=== PATIENT | female | born 1975 | race Caucasian/White ===

== ENCOUNTER 2017-03-25 11:11 | Emergency (ER) | payer MEDICAID, SELFPAY ==
[2017-03-25 11:16] VITALS: BP 147/56; PULSE 69; RESP 18; TEMP 36.6; O2SAT 99; BMI 25.8
--- NOTE | 2017-03-25 11:54 | ED.VISSUMM ---
- ER Visit Summary Date of Service: 03/25/17 Chief Complaint: Headache History of Present Illness: The patient is a 41 F with no primary care physician. She reports she has a headache began at 830 this morning. It is gradually gotten worse. She took ibuprofen without relief. She describes an aching pain on the right side of her head that is 10 at 10 worsening a 10 currently. Is worsened by light. She been nauseated and vomited twice. No blood in her emesis. She does complain of photophobia. No change in her vision. Patient reports that she has had similar headaches in the past and reports that I have had worst in this. Physical Examination: Vitals: Stable. Afebrile. Neck: Supple with no meningismus. Neuro: Cranial nerves II through XII are intact, 5 out of 5 strength throughout, normal sensation to light touch throughout. Normal gait. General: A&O x 3. NAD. Cardiovascular exam: Regular rate and rhythm, no murmur, rub or gallop. Respiratory exam: Clear to auscultation bilaterally. No wheezes or stridor. Abdominal exam: Soft, nontender, nondistended, normal bowel sounds. No peritoneal signs. Extremity: No clubbing, cyanosis, or edema. Emergency Department Course and Treatment: She had an IV placed. She is given a liter of normal saline. She is given Toradol and Benadryl IV. She refused nausea medications. She is feeling significantly improved. Treatment Plan: She will be discharged instructions to follow-up the [facility] in 1-2 days not improving. Return to the emergency department for any worsening symptoms. Disposition: To home in improved and stable condition. Impression: 1. Migraine headache. This note was generated with [employer] software. It may contain incorrect words, spelling, and punctuation that were not noted in review of the chart prior to signing ED Disposition - Plan for ED Patient: Disposition: Home or Assisted Living Chief Complaint: Headache Instructions: ED Headache Migraine Referrals: Concepcion Kumar [NON-STAFF] - 1-2 Days if not improving
--- NOTE | 2017-03-25 11:57 | ED.DCSUM_ITS ---
- ER Visit Summary Date of Service: 03/25/17 Chief Complaint: Headache History of Present Illness: The patient is a 41 F with no primary care physician. She reports she has a headache began at 830 this morning. It is gradually gotten worse. She took ibuprofen without relief. She describes an aching pain on the right side of her head that is 10 at 10 worsening a 10 currently. Is worsened by light. She been nauseated and vomited twice. No blood in her emesis. She does complain of photophobia. No change in her vision. Patient reports that she has had similar headaches in the past and reports that I have had worst in this. Physical Examination: Vitals: Stable. Afebrile. Neck: Supple with no meningismus. Neuro: Cranial nerves II through XII are intact, 5 out of 5 strength throughout , normal sensation to light touch throughout. Normal gait. General: A&O x 3. NAD. Cardiovascular exam: Regular rate and rhythm, no murmur, rub or gallop. Respiratory exam: Clear to auscultation bilaterally. No wheezes or stridor. Abdominal exam: Soft, nontender, nondistended, normal bowel sounds. No peritoneal signs. Extremity: No clubbing, cyanosis, or edema. Emergency Department Course and Treatment: She had an IV placed. She is given a liter of normal saline. She is given Toradol and Benadryl IV. She refused nausea medications. She is feeling significantly improved. Treatment Plan: She will be discharged instructions to follow-up the [facility] in 1-2 days not improving. Return to the emergency department for any worsening symptoms. Disposition: To home in improved and stable condition. Impression: 1. Migraine headache. This note was generated with [employer] software. It may contain incorrect words, spelling, and punctuation that were not noted in review of the chart prior to signing ED Disposition - Plan for ED Patient: Disposition: Home or Assisted Living Chief Complaint: Headache Instructions: ED Headache Migraine Referrals: Concepcion Kumar [NON-STAFF] - 1-2 Days if not improving
[2017-03-25] MEDS: Ketorolac 30 MG/ML Syringe IV (12:07)
[2017-03-25] MEDS: DiphenhydrAMINE 50 MG/ML Syringe IV (12:07)
[2017-03-25] MEDS: 0.9% Normal Saline 1,000 ML 999 ML IV (12:07)
[2017-03-25 13:35] VITALS: BP 124/75; PULSE 81; RESP 24; O2SAT 98
--- NOTE | 2017-03-25 13:36 | ED.RN ---
THIS NURSE REVIEWED D/C INSTRUCTIONS WITH PT. PT VERBALIZED UNDERSTANDING OF INSTRUCTIONS. IV D/C. IV CATHETER INTACT. PT TOLERATED WELL. PT DENIES FURTHER NEEDS OR QUESTIONS AT THIS TIME
== END 2017-03-25 13:37 | disposition home or self-care (01) ==
LOC: ED 12:56
PROVIDERS: Emergency Provider Emergency Medicine
DX: G43.909 Migraine, unspecified, not intractable, without status migrainosus (principal); Z87.891 Personal history of nicotine dependence
CPT/HCPCS: 96361; 96374; 96375; 99283; J7030; A4216

== ENCOUNTER 2017-03-26 02:25 | Emergency (ER) | payer MEDICAID, SELFPAY ==
[2017-03-26 02:27] VITALS: BP 113/56; PULSE 59; RESP 16; TEMP 36.8; O2SAT 100; BMI 25.8
[2017-03-26] MEDS: 0.9% Normal Saline 1,000 ML 1000 ML IV (02:58)
[2017-03-26] MEDS: Ketorolac 30 MG/ML Syringe IV (02:58)
[2017-03-26] MEDS: DiphenhydrAMINE 50 MG/ML Syringe 25 MG IV (03:01)
[2017-03-26 04:30] VITALS: RESP 12
--- NOTE | 2017-03-26 05:09 | ED.DCSUM_ITS ---
- ER Visit Summary Date of Service: 03/26/17 Chief Complaint: Headache History of Present Illness: The patient is a 41 F with a history of migraines. Patient complains of headache to the right church region. She has had nausea, vomiting, and photophobia. Patient was seen yesterday for the same. Patient states her headache was improved at discharge, but returned later in the day. She denies any recent URI symptoms. She denies any recent head trauma. Physical Examination: Vital signs are unremarkable. Patient is in no acute distress and is nontoxic appearing. Head and neck examination is normal. She has no meningismus. Heart is regular rate and rhythm. Palpable pulses are noted throughout. Lungs are clear with good air movement throughout. Abdomen is soft and nontender. Bowel sounds are noted. Extremity examination is unremarkable with full range of motion. Neurologic examination reveals no focal deficits. Test Results: Emergency Department Course and Treatment: Patient is treated Toradol, Benadryl , and IV fluids. On repeat evaluation she feels improved. She be discharged home at this time. Treatment Plan: [] Disposition: Discharge Impression: Migraine, improved This note was generated with [employer] dictation software. It may contain incorrect words, spelling, and punctuation that were not noted in review of the chart prior to signing ED Disposition - Plan for ED Patient: Disposition: Home or Assisted Living Chief Complaint: Headache Instructions: ED Headache Migraine Referrals: Eddy Wright MD [STAFF PHYSICIAN] - As Needed
[2017-03-26 05:19] VITALS: BP 98/63; PULSE 62; RESP 15; O2SAT 97
== END 2017-03-26 05:20 | disposition home or self-care (01) ==
PROVIDERS: Emergency Provider Emergency Medicine
DX: G43.909 Migraine, unspecified, not intractable, without status migrainosus (principal); Z87.891 Personal history of nicotine dependence
CPT/HCPCS: 96361; 96374; 96375; 99283; J7030; J7040; A4216

== ENCOUNTER 2017-05-15 19:23 | Emergency (ER) | payer MEDICAID, SELFPAY ==
[2017-05-15 19:24] VITALS: BP 123/75; PULSE 75; RESP 16; TEMP 37.1; O2SAT 99; BMI 26.6
--- NOTE | 2017-05-15 21:40 | RAD_ITS ---
STUDY: X-RAY CHEST REASON FOR EXAM: Female, 41 years old. Cough TECHNIQUE: Single AP portable view of the chest. COMPARISON: None. FINDINGS: The lungs are clear and expanded. There is no demonstrated pleural abnormality. Normal size heart. Normal mediastinum and ignacio. Normal visualized pulmonary arteries. Normal visualized aortic arch and descending thoracic aorta. Normal visualized thoracic spine. Normal visualized ribs, clavicles, and shoulders. There is no demonstrated abnormality of the visualized soft tissue structures of the upper abdomen. RAD/Chest 1 View (Portable) IMPRESSION: No acute cardiopulmonary disease. Electronically Signed: Jeromy Jones DO at 21:56 EDT , Service support ,
--- NOTE | 2017-05-15 22:32 | ED.DCSUM_ITS ---
- ER Visit Summary Date of Service: 05/15/17 Chief Complaint: Sinus congestion History of Present Illness: The patient is a 41 F resenting with sinus congestion ?1 day. She complains of congestion and runny nose. She has a sore throat. She has a dry cough. Denies fever. Denies chest pain or shortness of breath. She has been taking ijht-nwe-uveyhrq medications. She does not have a primary care physician. Denies other complaints. Physical Examination: Vitals are stable. Patient is afebrile. Alert no acute distress. HEENT exam is rhinorrhea, mild maxillary sinus tenderness, pharynx is normal, uvula midline. Neck is supple. No meningismus. Lungs are clear and equal bilaterally. Heart is regular rate and rhythm. Abdomen is soft nontender nondistended. Extremities are unremarkable. Skin is warm and dry. No rash Remainder of exam is unremarkable. Emergency Department Course and Treatment: Chest x-ray shows no acute process. Patient given Mucinex D. Advised to follow-up with Dr. Kam business administration program chair for no doc. Advised return to ED if worsening complaints. Disposition: Discharge home Impression: URI This note was generated with [employer] dictation software. It may contain incorrect words, spelling, and punctuation that were not noted in review of the chart prior to signing ED Disposition - Plan for ED Patient: Chief Complaint: Cold Sx Referrals: Care Physician,No Primary [Primary Care Provider] -
--- NOTE | 2017-05-15 22:34 | ED.DEP ---
ED Disposition - Plan for ED Patient: Chief Complaint: Cold Sx Prescriptions: Guaifenesin/Pseudoephedrne HCl [Mucinex D ER 1,200-120 mg Tab] 1 each PO BID PRN #14 tab.er.12h PRN Reason: Congestion Referrals: Care Physician,No Primary [Primary Care Provider] - Sandeep Kma MD [STAFF PHYSICIAN] -
--- NOTE | 2017-05-15 22:39 | ED.RN ---
PT REFUSED PRESCRIPTION FROM MD. AMBULATED OUT OF ROOM PRIOR TO DISCHARGE INSTRUCTIONS
== END 2017-05-15 22:40 | disposition home or self-care (01) ==
PROVIDERS: Emergency Provider Emergency Medicine
DX: J06.9 Acute upper respiratory infection, unspecified (principal); Z87.891 Personal history of nicotine dependence
CPT/HCPCS: 71045; 99282

== ENCOUNTER 2017-05-17 12:51 | Emergency (ER) | payer MEDICAID, SELFPAY ==
[2017-05-17 12:53] VITALS: BP 137/88; PULSE 87; RESP 16; TEMP 35.6; O2SAT 99; BMI 24.7
--- NOTE | 2017-05-17 13:44 | ED.DCSUM_ITS ---
- ER Visit Summary Date of Service: 05/17/17 Chief Complaint: Headache History of Present Illness: The patient is a 41 F with no primary care physician. She reports that she has a headache began today at 10. Similar to her prior headaches. Is a sharp pain right side of her head. Senna 10 at worst 910 currently. Is worsened by nothing including light. She is not taking anything for it. She denies any nausea or vomiting. No fever or chills. No recent trauma. No change in her vision. No numbness or weakness. Physical Examination: Vitals: Stable. Afebrile. Neck: Supple with no meningismus. Neuro: Cranial nerves II through XII are intact, 5 out of 5 strength throughout , normal sensation to light touch throughout. Normal gait. General: A&O x 3. NAD. Cardiovascular exam: Regular rate and rhythm, no murmur, rub or gallop. Respiratory exam: Clear to auscultation bilaterally. No wheezes or stridor. Abdominal exam: Soft, nontender, nondistended, normal bowel sounds. No peritoneal signs. Extremity: No clubbing, cyanosis, or edema. Emergency Department Course and Treatment: Had an IV placed. She was given a liter normal saline and Toradol. She reports that her headache is resolved. Treatment Plan: Patient will be discharged instructions follow-[facility] as needed. Disposition: To home in improved and stable condition. Impression: 1. Migraine headache. This note was generated with [employer] dictation software. It may contain incorrect words, spelling, and punctuation that were not noted in review of the chart prior to signing ED Disposition - Plan for ED Patient: Disposition: Home or Assisted Living Chief Complaint: Headache Instructions: ED Headache Migraine Referrals: Concepcion Kumar [NON-STAFF] - 1-2 Days if not improving
[2017-05-17] MEDS: Ketorolac 30 MG/ML Syringe IV (13:52)
[2017-05-17] MEDS: 0.9% Normal Saline 1,000 ML 999 ML IV (13:53)
[2017-05-17 14:50] VITALS: BP 117/84; PULSE 67; RESP 18; O2SAT 100
== END 2017-05-17 14:51 | disposition home or self-care (01) ==
PROVIDERS: Emergency Provider Emergency Medicine
DX: G43.909 Migraine, unspecified, not intractable, without status migrainosus (principal)
CPT/HCPCS: 96361; 96374; 99283; J7030; A4216

== ENCOUNTER 2017-05-18 12:06 | Emergency (ER) | payer MEDICAID, SELFPAY ==
[2017-05-18 12:08] VITALS: BP 105/73; PULSE 80; RESP 16; TEMP 36.7; O2SAT 96; BMI 25.8
--- NOTE | 2017-05-18 12:35 | ED.VISSUMM ---
- ER Visit Summary Date of Service: 05/18/17 Chief Complaint: Headache History of Present Illness: The patient is a 41 F with no primary care physician. She reports that she has a headache that began this morning at 11 AM when she woke. It is a sharp, tightness on the right side of her head. 10 out of 10 severity. Is worsened by nothing including light. She is not taking anything for pain. She denies any associated nausea, vomiting, photophobia, numbness, weakness, fever, or other complaints. Physical Examination: Vitals: Stable. Afebrile. Neck: Supple with no meningismus. Neuro: Cranial nerves II through XII are intact, 5 out of 5 strength throughout, normal sensation to light touch throughout. Normal gait. General: A&O x 3. NAD. Cardiovascular exam: Regular rate and rhythm, no murmur, rub or gallop. Respiratory exam: Clear to auscultation bilaterally. No wheezes or stridor. Abdominal exam: Soft, nontender, nondistended, normal bowel sounds. No peritoneal signs. Extremity: No clubbing, cyanosis, or edema. Emergency Department Course and Treatment: Patient was seen yesterday in the emergency department for the same complaint. She is given Toradol then and her headache resolved. She was given Toradol today and her headache resolved. Treatment Plan: The patient reports that Toradol is the only thing that works for her headaches. She will be discharged prescription for Toradol and start to follow-up the [facility] for further evaluation. Disposition: To home in improved and stable condition. Impression: 1. Migraine headache. This note was generated with [employer] dictation software. It may contain incorrect words, spelling, and punctuation that were not noted in review of the chart prior to signing ED Disposition - Plan for ED Patient: Chief Complaint: Headache Instructions: ED Headache Migraine Prescriptions: Ketorolac [Toradol] 10 mg PO Q6H PRN #20 tablet PRN Reason: Headache Referrals: Concepcion Kumar [NON-STAFF] - As soon as possible
--- NOTE | 2017-05-18 12:38 | ED.DCSUM_ITS ---
- ER Visit Summary Date of Service: 05/18/17 Chief Complaint: Headache History of Present Illness: The patient is a 41 F with no primary care physician. She reports that she has a headache that began this morning at 11 AM when she woke. It is a sharp, tightness on the right side of her head. 10 out of 10 severity. Is worsened by nothing including light. She is not taking anything for pain. She denies any associated nausea, vomiting, photophobia, numbness, weakness, fever, or other complaints. Physical Examination: Vitals: Stable. Afebrile. Neck: Supple with no meningismus. Neuro: Cranial nerves II through XII are intact, 5 out of 5 strength throughout , normal sensation to light touch throughout. Normal gait. General: A&O x 3. NAD. Cardiovascular exam: Regular rate and rhythm, no murmur, rub or gallop. Respiratory exam: Clear to auscultation bilaterally. No wheezes or stridor. Abdominal exam: Soft, nontender, nondistended, normal bowel sounds. No peritoneal signs. Extremity: No clubbing, cyanosis, or edema. Emergency Department Course and Treatment: Patient was seen yesterday in the emergency department for the same complaint. She is given Toradol then and her headache resolved. She was given Toradol today and her headache resolved. Treatment Plan: The patient reports that Toradol is the only thing that works for her headaches. She will be discharged prescription for Toradol and start to follow-up the [facility] for further evaluation. Disposition: To home in improved and stable condition. Impression: 1. Migraine headache. This note was generated with [employer] dictation software. It may contain incorrect words, spelling, and punctuation that were not noted in review of the chart prior to signing ED Disposition - Plan for ED Patient: Chief Complaint: Headache Instructions: ED Headache Migraine Prescriptions: Ketorolac [Toradol] 10 mg PO Q6H PRN #20 tablet PRN Reason: Headache Referrals: Concepcion Kumar [NON-STAFF] - As soon as possible
[2017-05-18] MEDS: Ketorolac 30 MG/ML Syringe IV (12:40)
[2017-05-18] MEDS: 0.9% Normal Saline 1,000 ML 999 ML IV (12:40)
[2017-05-18 13:59] VITALS: PULSE 84; RESP 16; O2SAT 98
== END 2017-05-18 14:01 | disposition home or self-care (01) ==
PROVIDERS: Emergency Provider Emergency Medicine
DX: G43.909 Migraine, unspecified, not intractable, without status migrainosus (principal)
CPT/HCPCS: 96361; 96374; 99283; J7030; A4216

== ENCOUNTER 2017-06-17 06:00 | Emergency (ER) | payer MEDICAID, SELFPAY ==
[2017-06-17 06:00] VITALS: BP 116/80; PULSE 81; RESP 16; TEMP 36.4; O2SAT 99; BMI 26.7
[2017-06-17] MEDS: Ketorolac 30 MG/ML Syringe IV (06:24)
[2017-06-17] MEDS: 0.9% Normal Saline 1,000 ML 1000 ML IV (06:24)
--- NOTE | 2017-06-17 07:20 | CT_ITS ---
STUDY: CT BRAIN WITHOUT CONTRAST REASON FOR EXAM: Female, 41 years old. Headaches. History of migraines. RADIATION DOSAGE (If Supplied By Facility): CTDIvol = ( 44.99 ) mGy, DLP = ( 745.49 ) mGycm TECHNIQUE: Transaxial CT imaging of the brain was performed without administration of intravenous contrast material. Individualized dose optimization techniques were used for this CT. COMPARISON: Comparison is made with prior study dated February 22, 2015. FINDINGS: Normal soft tissue structures. Normal calvarium. Normal size ventricles and extra-axial spaces for the patient's age. Normal white matter tracts of the cerebral hemispheres. Normal basal ganglia and thalami. Normal brainstem. Normal cerebellum. There is no intracranial hemorrhage. There are no findings of an acute ischemic infarction. Mucosal thickening of the sphenoid sinus. CT/Brain/Head without Contrast IMPRESSION: No acute abnormality is seen. Mucosal thickening of the sphenoid sinus. Electronically Signed: Rubén Lira MD at 8:02 EDT Tel [phone], Service support ,
--- NOTE | 2017-06-17 07:21 | ED.VISSUMM ---
- ER Visit Summary Date of Service: 06/17/17 Chief Complaint: [Headache] History of Present Illness: The patient is a 41 F [presents the emergency department with a headache that started about 24 hours ago. Patient states the headache is right-sided and describes it as throbbing. Patient states the headache came on gradually. Patient denies any head injury. Patient has had no photophobia and no nausea or vomiting. Last illness patient had was 2 weeks ago she had cold symptoms but those resolved. Patient states that she has had a history of migraines and typically Toradol resolves her headaches. Patient denies any carbon monoxide exposures. No family history of brain tumors or aneurysms. Patient rates her headache a 5 or 6 out of 10. Patient took Toradol at home yesterday did not resolve her headache. Patient also took ibuprofen today.] Physical Examination: [HEENT-PERRLA, EOMI. Cranial nerves II through XII grossly intact. TMs clear. Mucous membranes moist. No adenopathy. Cardiovascular-regular rate and rhythm without murmur or ectopy Lungs-clear to auscultation, chest wall stable without crepitus or subcu emphysema Abdomen-normoactive bowel sounds, soft, nontender, no rebound or rigidity, no peritoneal signs. Neuro kmsl-emylqt-spmk and heel smith testing within normal limits, negative Romberg, negative pronator drift, fundi benign Extremities-intact ?4, normal range of motion, normal pulses, atraumatic] Test Results: [CT scan of brain without contrast pending] Emergency Department Course and Treatment: [Patient received Toradol and a liter normal same fluid bolus which did not help her headache. Patient refused any sedating medications here and refused antinausea medications. Treatment Plan: [She will be given for [place] for home.] Care of patient turned over to morning physician awaiting CT result and disposition to home if normal. DISPOSITION-discharge to home in stable condition Impression: [Cephalgia] This note was generated with [employer] dictation software. It may contain incorrect words, spelling, and punctuation that were not noted in review of the chart prior to signing ED Disposition - Plan for ED Patient: Chief Complaint: Headache Referrals: Care Physician,No Primary [Primary Care Provider] -
--- NOTE | 2017-06-17 07:25 | ED.DCSUM_ITS ---
- ER Visit Summary Date of Service: 06/17/17 Chief Complaint: [Headache] History of Present Illness: The patient is a 41 F [presents the emergency department with a headache that started about 24 hours ago. Patient states the headache is right-sided and describes it as throbbing. Patient states the headache came on gradually. Patient denies any head injury. Patient has had no photophobia and no nausea or vomiting. Last illness patient had was 2 weeks ago she had cold symptoms but those resolved. Patient states that she has had a history of migraines and typically Toradol resolves her headaches. Patient denies any carbon monoxide exposures. No family history of brain tumors or aneurysms. Patient rates her headache a 5 or 6 out of 10. Patient took Toradol at home yesterday did not resolve her headache. Patient also took ibuprofen today.] Physical Examination: [HEENT-PERRLA, EOMI. Cranial nerves II through XII grossly intact. TMs clear. Mucous membranes moist. No adenopathy. Cardiovascular-regular rate and rhythm without murmur or ectopy Lungs-clear to auscultation, chest wall stable without crepitus or subcu emphysema Abdomen-normoactive bowel sounds, soft, nontender, no rebound or rigidity, no peritoneal signs. Neuro txbv-syehjv-harv and heel smith testing within normal limits, negative Romberg, negative pronator drift, fundi benign Extremities-intact ?4, normal range of motion, normal pulses, atraumatic] Test Results: [CT scan of brain without contrast pending] Emergency Department Course and Treatment: [Patient received Toradol and a liter normal same fluid bolus which did not help her headache. Patient refused any sedating medications here and refused antinausea medications. Treatment Plan: [She will be given for [place] for home.] Care of patient turned over to morning physician awaiting CT result and disposition to home if normal. DISPOSITION-discharge to home in stable condition Impression: [Cephalgia] This note was generated with [employer] dictation software. It may contain incorrect words, spelling, and punctuation that were not noted in review of the chart prior to signing ED Disposition - Plan for ED Patient: Chief Complaint: Headache Referrals: Care Physician,No Primary [Primary Care Provider] -
--- NOTE | 2017-06-17 07:25 | ED.DEP ---
ED Disposition - Plan for ED Patient: Chief Complaint: Headache Instructions: ED Cephalgia Unspecified Referrals: Care Physician,No Primary [Primary Care Provider] - Philip Batres MD [STAFF PHYSICIAN] - 3-5 Days
--- NOTE | 2017-06-17 08:13 | ED.DCSUM_ITS ---
- ER Visit Summary Date of Service: 06/17/17 Chief Complaint: [] History of Present Illness: The patient is a 41 F [] Physical Examination: [] Test Results: [] Emergency Department Course and Treatment: [] Treatment Plan: [] Disposition: [] Impression: [] This note was generated with [employer] dictation software. It may contain incorrect words, spelling, and punctuation that were not noted in review of the chart prior to signing ED Disposition - Plan for ED Patient: Chief Complaint: Headache Instructions: ED Cephalgia Unspecified Prescriptions: DiphenhydrAMINE [Benadryl] 25 mg PO UD #10 cap Referrals: Philip Batres MD [STAFF PHYSICIAN] - 3-5 Days Care Physician,No Primary [Primary Care Provider] -
[2017-06-17 08:27] VITALS: BP 118/79; PULSE 84; RESP 22; O2SAT 98
--- NOTE | 2017-06-17 08:28 | ED.RN ---
THIS NURSE REVIEWED D/C INSTRUCTIONS WITH PT. PT VERBALIZED UNDERSTANDING OF INSTRUCTIONS. IV D/C. IV CATHETER INTACT. PT TOLERATED WELL. PT REQUESTING SOMETHING FOR PAIN. DR SARAVIA ALREADY SPOKE WITH THE PT ABOUT HER MEDICATION OPTIONS. PT GIVEN PRESCRIPTION FOR BENADRYL. PT DENIES FURTHER NEEDS OR QUESTIONS AT THIS TIME
== END 2017-06-17 08:29 | disposition home or self-care (01) ==
PROVIDERS: Emergency Provider Emergency Medicine
DX: G43.909 Migraine, unspecified, not intractable, without status migrainosus (principal); Z87.891 Personal history of nicotine dependence
CPT/HCPCS: 70450; 96361; 96374; 99284; J7030; A4216

== ENCOUNTER 2017-06-17 14:41 | Emergency (ER) | payer MEDICAID, SELFPAY ==
[2017-06-17 14:41] VITALS: BP 119/70; PULSE 85; RESP 18; TEMP 36.8; O2SAT 96; BMI 27.1
--- NOTE | 2017-06-17 16:07 | ED.RN ---
PT WAS IN RESTROOM. I ENTERED TO START HER IV AND MEDICATE HER. I ELEVATED THE HEAD OF THE BED TO START IV. PT ENTERED ROOM AND DEMANDED THE HEAD OF THE BED BE PUT DOWN. I INFORMED HER THAT I WOULD NEED IT UP TO START HER IV. SHE STATED PUT IS DOWN OR NO IV. PT WAS TOLD THAT I WAS JUST THERE TO HELP HER AND DIDN'T UNDERSTAND THE HOSTILITY. SHE THEN SAID I'M LEAVING. FRIEND APOLOGIZED AND MEDICATIONS WHERE NOT GIVEN. DR LÓPEZ AND LEAD ASSISTANT MANAGER WHERE INFORMED.
--- NOTE | 2017-06-17 16:15 | CASEMGMT ---
Social Work Note In to speak with pt as she had been referred to SW for multiple visits. Pt has been to the ED for headaches a total of 11 visits since 02/18/17. Pt does not have a PCP. Introduced self and role at [facility]. Pt states, I don't need a manager social media. Inform pt that SW is here to support and assist her. Inquire if pt has a PCP and she states, I am not talking to you. You can ask whatever you want, I am not responding. Pt pulls blanket over her head. SW inquires about living situation, income, PCP, transportation, and mental health. Pt does not respond and continues to disregard inquiries. Inform pt that SW is leaving resources on her chair with the coat on it. Pt does not acknowledge. Inquire if SW may setup an appointment with a PCP that accepts her insurance. Pt continues to remain silent. Pt made aware that SW is available if needs arise. Reviewed with supervisor [employer] who confirms without pt's consent cannot setup a PCP appointment on her behalf. Will review case to present for approval of EDCP. Mounika Young, HORTICULTURE SUPERVISOR, HOTEL RESERVATIONIST
--- NOTE | 2017-06-17 16:19 | ED.DCSUM_ITS ---
- ER Visit Summary Date of Service: 06/17/17 Chief Complaint: Headache History of Present Illness: The patient is a 41 F who states that she has a history of migraines. She states that she believes yesterday may be the night before she developed a right-sided headache. She describes it as retro-orbital and sharp and stabbing. He states that this is a typical headache for her. She was seen in the emergency department this morning given Toradol which she states did not help and she went home and went to bed and her headache got worse. She states that she typically takes Toradol for headaches and that helps. No fevers. She notes some nausea. Some mild light sensitivity. She denies any neurologic deficits or weakness. She denies any visual changes. No watering of the eye. No rashes. Physical Examination: Afebrile vital signs are stable Gen: Well-nourished well-developed Head: Normocephalic atraumatic no temporal artery tenderness Eyes: Perrl EOMI no conjunctival injection ENT: TMs clear no rhinorrhea moist mucous membranes Neck: Supple no lymphadenopathy no JVD nontender CVS: Regular rate rhythm no murmurs normal S1-S2 Respiratory: No distress clear to auscultation bilaterally chest nontender Abdomen: Soft nontender nondistended normal bowel sounds no masses Back: Nontender Extremity: Nontender no edema Skin: Normal color no rash Neuro: alert orientated ?3 CN II-XII intact normal strength sensation reflexes gait cerebellar Psych: Normal affect normal mood Emergency Department Course and Treatment: The patient's last 3 prior ED visits were reviewed. Patient had medications ordered. When nursing went to start the IV she refused the IV and left the emergency department. Impression: 1. Headache 2. ED elopement This note was generated with [employer] dictation software. It may contain incorrect words, spelling, and punctuation that were not noted in review of the chart prior to signing ED Disposition - Plan for ED Patient: Chief Complaint: Headache Referrals: Care Physician,No Primary [Primary Care Provider] -
== END 2017-06-17 17:01 | disposition home or self-care (01) ==
LOC: ED 16:32
PROVIDERS: Emergency Provider Emergency Medicine
DX: G43.909 Migraine, unspecified, not intractable, without status migrainosus (principal); Z87.891 Personal history of nicotine dependence
CPT/HCPCS: 70450; 96361; 96374; 99282; 99284; J7030; A4216; J2930

== ENCOUNTER 2017-06-18 03:59 | Emergency (ER) | payer MEDICAID, SELFPAY ==
[2017-06-18 04:01] VITALS: BP 127/66; PULSE 73; RESP 14; TEMP 36.6; O2SAT 100; BMI 25.1
--- NOTE | 2017-06-18 04:47 | ED.DCSUM_ITS ---
- ER Visit Summary Date of Service: 06/18/17 Chief Complaint: [] Migraine headache History of Present Illness: The patient is a 41 F complaining of a migraine headache for the last 2 days gradual onset continuous similar headaches in the past. Throbbing right-sided. Negative CT head recently. Associated nausea and photophobia. No home treatment since her last visit here yesterday when she received Toradol. She has had multiple visits for migraines this year. Physical Examination: Vital signs reviewed General: Well-nourished well-developed Head: Normocephalic atraumatic Eyes: Pupils equal round and reactive to light extraocular movements intact ENT: TMs clear no hemotympanum no trauma Neck: Nontender full range of motion Cardiovascular: Regular rate rhythm no murmurs normal S1-S2 Respiratory: No distress clear to auscultation bilaterally chest nontender Abdomen: Soft nontender nondistended normal bowel sounds no masses Back: Nontender no CVA tenderness Extremities: Nontender active range of motion ?4 extremities no trauma Skin: Normal color no trauma Neuro alert oriented cranial nerves II through XII intact normal strength sensation reflexes Test Results: [] Emergency Department Course and Treatment: [] Patient given IV fluids Toradol and Benadryl at her request. As Phenergan or Compazine. Treatment Plan: [] Disposition: [] Impression: [] Migraine headache This note was generated with [employer] dictation software. It may contain incorrect words, spelling, and punctuation that were not noted in review of the chart prior to signing ED Disposition - Plan for ED Patient: Chief Complaint: Headache Referrals: Care Physician,No Primary [Primary Care Provider] -
--- NOTE | 2017-06-18 04:47 | ED.DEP ---
ED Disposition - Plan for ED Patient: Disposition: Home or Assisted Living Chief Complaint: Headache Instructions: ED Headache Migraine Referrals: Care Physician,No Primary [Primary Care Provider] - Contreras Allan DO [NON CLINICAL AFFILIATE] -
[2017-06-18] MEDS: 0.9% Normal Saline 1,000 ML 999 ML IV (04:55)
[2017-06-18] MEDS: DiphenhydrAMINE 50 MG/ML Syringe IV (04:56)
[2017-06-18] MEDS: Ketorolac 30 MG/ML Syringe IV (04:56)
[2017-06-18 05:56] VITALS: BP 107/71; PULSE 75; RESP 16; O2SAT 100
== END 2017-06-18 05:57 | disposition home or self-care (01) ==
PROVIDERS: Emergency Provider Emergency Medicine
DX: G43.909 Migraine, unspecified, not intractable, without status migrainosus (principal)
CPT/HCPCS: 96361; 96374; 96375; 99284; J7030; A4216

== ENCOUNTER 2017-06-21 06:51 | Emergency (ER) | payer MEDICAID, SELFPAY ==
[2017-06-21 06:53] VITALS: BP 130/88; PULSE 79; RESP 18; TEMP 36.6; O2SAT 100; BMI 56.9
--- NOTE | 2017-06-21 07:22 | ED.VISSUMM ---
- ER Visit Summary Date of Service: 06/21/17 Chief Complaint: Headache History of Present Illness: The patient is a 41 F presenting with headache. She states this feels like her previous tension headaches. Pain is on the left side of her head and started gradually yesterday. She has been taking awmh-gcf-bllsfiu headache medication with some relief. She denies recent fever. Denies vomiting but complains of nausea. No numbness or weakness. No other complaints. No recent trauma Physical Examination: Vitals are stable. Patient is afebrile. Alert no acute distress. HEENT exam is unremarkable. Neck is supple. No meningismus Lungs are clear and equal bilaterally. Heart is regular rate and rhythm. Abdomen is soft nontender nondistended. Extremities are unremarkable. Skin is warm and dry. No focal neurologic deficit. Remainder of exam is unremarkable. Emergency Department Course and Treatment: Patient given Compazine, Benadryl IV. She continues to have pain and was given Toradol. She has improvement after Toradol. She is resting comfortably. Advised to follow-up with Dr. Batres automobile service station attendant for no doc. Advised return to ED for worsening complaints. Disposition: Discharged home Impression: Headache This note was generated with [employer]oo dictation software. It may contain incorrect words, spelling, and punctuation that were not noted in review of the chart prior to signing ED Disposition - Plan for ED Patient: Chief Complaint: Headache Referrals: Care Physician,No Primary [Primary Care Provider] -
[2017-06-21] MEDS: DiphenhydrAMINE 50 MG/ML Syringe 25 MG IV (07:57)
[2017-06-21 08:42] VITALS: BP 106/73; PULSE 62; O2SAT 100
[2017-06-21] MEDS: Ketorolac 30 MG/ML Syringe IV (08:45)
--- NOTE | 2017-06-21 09:48 | ED.DEP ---
ED Disposition - Plan for ED Patient: Chief Complaint: Headache Instructions: ED Headache Tension Referrals: Care Physician,No Primary [Primary Care Provider] - Philip Batres MD [STAFF PHYSICIAN] -
[2017-06-21 10:00] VITALS: BP 124/79; PULSE 86; RESP 18; O2SAT 98
--- NOTE | 2017-06-21 10:01 | ED.RN ---
THIS NURSE REVIEWED D/C INSTRUCTIONS WITH PT AND VISITOR. BOTH VERBALIZED UNDERSTANDING OF INSTRUCTIONS. IV D/C. IV CATHETER INTACT. PT TOLERATED WELL. PT DENIES FURTHER NEEDS OR QUESTIONS AT THIS TIME.
--- NOTE | 2017-06-29 09:48 | CASEMGMT ---
Social Work Note Attempted to call pt to identify needs to ensure linkage with appropriate resources for continuity of care. Introduced self and role at [facility] and pt hung up. Care Plan to be developed and mailed out to pt upon review with referring physician. Mounika Young, RN CLINICAL DOCUMENTATION SPECIALIST, RADIOLOGY RECEPTIONIST
== END 2017-06-21 10:01 | disposition home or self-care (01) ==
PROVIDERS: Emergency Provider Emergency Medicine
DX: R51 Headache (principal); Z87.891 Personal history of nicotine dependence
CPT/HCPCS: 96374; 96375; 99283; A4216

== ENCOUNTER 2017-07-09 12:58 | Emergency (ER) | payer MEDICAID, SELFPAY ==
[2017-07-09 12:58] VITALS: BP 133/64; PULSE 81; RESP 14; TEMP 36.7; O2SAT 98; BMI 23.6
--- NOTE | 2017-07-09 13:44 | ED.VISSUMM ---
- ER Visit Summary Date of Service: 07/09/17 Chief Complaint: Headache History of Present Illness: The patient is a 42 F presenting with headache. This started yesterday. It was gradual in onset. Similar to previous migraines. Patient has light sensitivity. She has had nausea with no vomiting. She denies fever. Denies trauma. Denies other complaints. She states she tried Toradol at home with minimal relief. Physical Examination: Vitals are stable. Patient is afebrile. Alert no acute distress. HEENT exam is unremarkable. Neck is supple. No meningismus Lungs are clear and equal bilaterally. Heart is regular rate and rhythm. Abdomen is soft nontender nondistended. Extremities are unremarkable. Skin is warm and dry. No focal neurologic deficit. Remainder of exam is unremarkable. Emergency Department Course and Treatment: Compazine, Benadryl, Toradol were ordered. Patient declines Compazine. On reevaluation she is resting comfortably. She is advised to follow-up with her primary care physician. Advised return to ED for worsening complaints. Disposition: Discharge home Impression: Headache This note was generated with [employer] dictation software. It may contain incorrect words, spelling, and punctuation that were not noted in review of the chart prior to signing ED Disposition - Plan for ED Patient: Chief Complaint: Headache Referrals: Care Physician,No Primary [Primary Care Provider] -
--- NOTE | 2017-07-09 13:47 | ED.DCSUM_ITS ---
- ER Visit Summary Date of Service: 07/09/17 Chief Complaint: Headache History of Present Illness: The patient is a 42 F presenting with headache. This started yesterday. It was gradual in onset. Similar to previous migraines. Patient has light sensitivity. She has had nausea with no vomiting. She denies fever. Denies trauma. Denies other complaints. She states she tried Toradol at home with minimal relief. Physical Examination: Vitals are stable. Patient is afebrile. Alert no acute distress. HEENT exam is unremarkable. Neck is supple. No meningismus Lungs are clear and equal bilaterally. Heart is regular rate and rhythm. Abdomen is soft nontender nondistended. Extremities are unremarkable. Skin is warm and dry. No focal neurologic deficit. Remainder of exam is unremarkable. Emergency Department Course and Treatment: Compazine, Benadryl, Toradol were ordered. Patient declines Compazine. On reevaluation she is resting comfortably. She is advised to follow-up with her primary care physician. Advised return to ED for worsening complaints. Disposition: Discharge home Impression: Headache This note was generated with [employer] dictation software. It may contain incorrect words, spelling, and punctuation that were not noted in review of the chart prior to signing ED Disposition - Plan for ED Patient: Chief Complaint: Headache Referrals: Care Physician,No Primary [Primary Care Provider] -
[2017-07-09] MEDS: DiphenhydrAMINE 50 MG/ML Syringe 25 MG IV (14:13)
[2017-07-09] MEDS: Ketorolac 30 MG/ML Syringe IV (14:14)
--- NOTE | 2017-07-09 14:51 | ED.DEP ---
ED Disposition - Plan for ED Patient: Chief Complaint: Headache Instructions: ED Headache Migraine Referrals: Care Physician,No Primary [Primary Care Provider] - Taylor Menon DO [STAFF PHYSICIAN] -
[2017-07-09 15:43] VITALS: BP 112/77; PULSE 68; RESP 16
== END 2017-07-09 15:44 | disposition home or self-care (01) ==
PROVIDERS: Emergency Provider Emergency Medicine
DX: R51 Headache (principal); Z87.891 Personal history of nicotine dependence
CPT/HCPCS: 96374; 96375; 99283

== ENCOUNTER 2017-07-10 05:57 | Emergency (ER) | payer MEDICAID, SELFPAY ==
[2017-07-10 05:58] VITALS: BP 118/67; PULSE 70; RESP 16; TEMP 36.5; O2SAT 99; BMI 25.9
--- NOTE | 2017-07-10 06:25 | ED.VISSUMM ---
- ER Visit Summary Date of Service: 07/10/17 Chief Complaint: Right-sided headache History of Present Illness: The patient is a [address] migraine headaches. States at 330 this morning woke up with right-sided headache. Call for migraines. She denies any fever. Denies any trauma. Denies any sinus congestion. She is on no blood thinners. Denies any neurological symptoms. No trouble walking or with her vision or speech. She has nausea no vomiting. She has had multiple headaches like this before. She has had a recent CAT scan one several years ago both of which were negative. She has no family history of intracranial bleeds and currently is on no blood thinners. Physical Examination: Middle-aged female complaining of a headache otherwise no acute distress. Vital signs are stable afebrile. HEENT exam unremarkable. Pupils round reactive light. Extra motions are intact. No facial droop. No sinus tenderness. No signs of trauma to her face or scalp. Neck nontender no lymphadenopathy no meningismus. Able to touch chin to chest. Lungs clear to auscultation bilaterally. Heart regular rate and rhythm no murmur. Abdomen soft nontender. Normal bowel sounds no peritoneal signs. She is moving all 4 extremities. Neurovascular intact. 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 Dorsi plantar flexion intact. No ataxia. Neurologically she is awake and alert with no focal motor or sensory deficits. NIH is 0. Back exam normal. Test Results: None Emergency Department Course and Treatment: Patient treated with 1 L normal saline, IV Toradol, IV Benadryl and IV Phenergan. Treatment Plan: Repeat exam patient is doing much better will be discharged home. Disposition: Discharge Impression: Acute cephalgia with a history of migraines This note was generated with [employer] dictation software. It may contain incorrect words, spelling, and punctuation that were not noted in review of the chart prior to signing ED Disposition - Plan for ED Patient: Chief Complaint: Headache Referrals: Care Physician,No Primary [Primary Care Provider] -
--- NOTE | 2017-07-10 06:27 | ED.DEP ---
ED Disposition - Plan for ED Patient: Disposition: Home or Assisted Living Chief Complaint: Headache Instructions: ED Headache Migraine Referrals: Rodney Spicer MD [STAFF PHYSICIAN] - As Needed Additional Instructions: Any of fluids and rest. Toradol as needed. Return if feeling worse.
[2017-07-10] MEDS: DiphenhydrAMINE 50 MG/ML Syringe 25 MG IV (06:34)
[2017-07-10] MEDS: 0.9% Normal Saline 1,000 ML 1000 ML IV (06:34)
[2017-07-10] MEDS: Ketorolac 30 MG/ML Syringe IV (06:34)
--- NOTE | 2017-07-10 06:47 | ED.RN ---
pt refuses celinen.
[2017-07-10 07:22] VITALS: BP 141/81; PULSE 87; RESP 14; O2SAT 100
== END 2017-07-10 07:23 | disposition home or self-care (01) ==
PROVIDERS: Emergency Provider Emergency Medicine
DX: G43.909 Migraine, unspecified, not intractable, without status migrainosus (principal); Z87.891 Personal history of nicotine dependence
CPT/HCPCS: 96361; 96374; 96375; 99283; J7030; A4216

== ENCOUNTER 2017-07-27 01:07 | Emergency (ER) | payer MEDICAID, SELFPAY ==
[2017-07-27 01:08] VITALS: BP 114/76; PULSE 69; RESP 16; TEMP 36.8; O2SAT 98; BMI 26.7
--- NOTE | 2017-07-27 02:18 | ED.VISSUMM ---
- ER Visit Summary Date of Service: 07/27/17 Chief Complaint: Headache History of Present Illness: The patient is a 42 F who presents with a headache. She has a history of multiple prior ER visits for headache. She states that this is similar to prior headaches but actually less severe than usual. She reports nausea. She denies any vomiting. She denies any head injury. No recent illness. No fevers vomiting or diarrhea. Physical Examination: Afebrile vitals are unremarkable Moist mucous membranes Extraocular motion intact Heart is regular rate per vitals She is in no respiratory distress The patient is alert she answers all questions appropriately she is moving all 4 extremities and does not appear to have any focal or lateralizing neurological deficits patient refused physical exam and physical exam is from observation Test Results: Not indicated Emergency Department Course and Treatment: I attempted to explain to the patient why physical exam is still important. My clinical suspicion for serious life-threatening pathology is low given that she has a history of prior similar headaches and multiple prior presentations for similar headaches. Patient is refusing to speak to me any further answer any questions or allow physical exam. Patient does not appear to have any life or limb threatening pathology. She was discharged. Treatment Plan: [] Disposition: Discharge Impression: Headache, recurrent This note was generated with [employer] dictation software. It may contain incorrect words, spelling, and punctuation that were not noted in review of the chart prior to signing ED Disposition - Plan for ED Patient: Chief Complaint: Headache Referrals: Care Physician,No Primary [Primary Care Provider] -
--- NOTE | 2017-07-27 02:21 | ED.DEP ---
ED Disposition - Plan for ED Patient: Chief Complaint: Headache Instructions: ED Cephalgia Unspecified Referrals: Care Physician,No Primary [Primary Care Provider] -
--- NOTE | 2017-07-27 02:38 | ED.RN ---
UPON ATTEMPT TO DISCHARGE PATIENT, PATIENT WAS NOT IN ROOM.
== END 2017-07-27 02:39 | disposition home or self-care (01) ==
PROVIDERS: Emergency Provider Emergency Medicine
DX: R51 Headache (principal)
CPT/HCPCS: 99282

== ENCOUNTER 2017-07-27 13:24 | Emergency (ER) | payer MEDICAID, SELFPAY ==
[2017-07-27 13:25] VITALS: BP 115/76; PULSE 66; RESP 14; TEMP 36.6; O2SAT 99; BMI 25.1
[2017-07-27] MEDS: Ketorolac 30 MG/ML Syringe IV (13:59)
[2017-07-27] MEDS: 0.9% Normal Saline 1,000 ML 1000 ML IV (13:59)
[2017-07-27] MEDS: DiphenhydrAMINE 50 MG/ML Syringe 25 MG IV (13:59)
--- NOTE | 2017-07-27 15:14 | ED.VISSUMM ---
- ER Visit Summary Date of Service: 07/27/17 Chief Complaint: [Headache] History of Present Illness: The patient is a 42 F [presents the emergency department with a headache that started yesterday. Patient rates her headache a 9 out of 10. Patient describes a headache is right-sided and similar to the prior headaches she has had. Patient describes some mild photophobia and some nausea but no vomiting. Patient states that she has had headaches off and on since 2007. Patient denies any recent falls or head injuries. Patient denies recent illness. Patient states Toradol usually works for her.] Physical Examination: [HEENT-PERRLA, EOMI. Cranial nerves II through XII grossly intact. TMs clear. Mucous membranes moist. No adenopathy. Cardiovascular-regular rate and rhythm without murmur or ectopy Lungs-clear to auscultation, chest wall stable without crepitus or subcu emphysema Abdomen-normoactive bowel sounds, soft, nontender, no rebound or rigidity, no peritoneal signs. Neuro brsv-irivri-hzee and heel smith testing within normal limits, negative Romberg, negative pronator drift, fundi benign Extremities-intact ?4, normal range of motion, normal pulses, atraumatic] Test Results: None indicated Emergency Department Course and Treatment: [Patient had an IV line established and was given a liter normal same fluid bolus as well as Reglan, Benadryl, and Toradol. Headache improved with 5 out of 10 and continuing to improve.] Treatment Plan: [Patient will be discharged home with referral to neurology for follow-up]. Patient had CT scan imaging of her brain and May 2017 therefore I do not feel any imaging is indicated in this headache is typical of prior headaches. Disposition: [Discharged to home in stable condition.] Impression: [Migrainous cephalgia] This note was generated with [employer] dictation software. It may contain incorrect words, spelling, and punctuation that were not noted in review of the chart prior to signing ED Disposition - Plan for ED Patient: Chief Complaint: Headache Referrals: Care Physician,No Primary [Primary Care Provider] -
--- NOTE | 2017-07-27 15:21 | ED.DCSUM_ITS ---
- ER Visit Summary Date of Service: 07/27/17 Chief Complaint: [Headache] History of Present Illness: The patient is a 42 F [presents the emergency department with a headache that started yesterday. Patient rates her headache a 9 out of 10. Patient describes a headache is right-sided and similar to the prior headaches she has had. Patient describes some mild photophobia and some nausea but no vomiting. Patient states that she has had headaches off and on since 2007. Patient denies any recent falls or head injuries. Patient denies recent illness. Patient states Toradol usually works for her.] Physical Examination: [HEENT-PERRLA, EOMI. Cranial nerves II through XII grossly intact. TMs clear. Mucous membranes moist. No adenopathy. Cardiovascular-regular rate and rhythm without murmur or ectopy Lungs-clear to auscultation, chest wall stable without crepitus or subcu emphysema Abdomen-normoactive bowel sounds, soft, nontender, no rebound or rigidity, no peritoneal signs. Neuro oeba-rcnldg-yxii and heel smith testing within normal limits, negative Romberg, negative pronator drift, fundi benign Extremities-intact ?4, normal range of motion, normal pulses, atraumatic] Test Results: None indicated Emergency Department Course and Treatment: [Patient had an IV line established and was given a liter normal same fluid bolus as well as Reglan, Benadryl, and Toradol. Headache improved with 5 out of 10 and continuing to improve.] Treatment Plan: [Patient will be discharged home with referral to neurology for follow-up]. Patient had CT scan imaging of her brain and May 2017 therefore I do not feel any imaging is indicated in this headache is typical of prior headaches. Disposition: [Discharged to home in stable condition.] Impression: [Migrainous cephalgia] This note was generated with [employer] dictation software. It may contain incorrect words, spelling, and punctuation that were not noted in review of the chart prior to signing ED Disposition - Plan for ED Patient: Chief Complaint: Headache Referrals: Care Physician,No Primary [Primary Care Provider] -
--- NOTE | 2017-07-27 15:21 | ED.DEP ---
ED Disposition - Plan for ED Patient: Chief Complaint: Headache Instructions: ED Headache Migraine Referrals: Care Physician,No Primary [Primary Care Provider] - Jesus Barrientos MD [STAFF PHYSICIAN] - 5-7 Days
[2017-07-27 15:29] VITALS: RESP 18
== END 2017-07-27 15:31 | disposition home or self-care (01) ==
PROVIDERS: Emergency Provider Emergency Medicine
DX: G43.909 Migraine, unspecified, not intractable, without status migrainosus (principal); Z87.891 Personal history of nicotine dependence
CPT/HCPCS: 96361; 96374; 96375; 99282; 99283; J7030; A4216

== ENCOUNTER 2017-07-28 05:08 | Emergency (ER) | payer MEDICAID, SELFPAY ==
[2017-07-28 05:09] VITALS: BP 118/67; PULSE 80; RESP 19; TEMP 36.7; O2SAT 98; BMI 25.6
--- NOTE | 2017-07-28 05:19 | ED.VISSUMM ---
- ER Visit Summary Date of Service: 07/28/17 Chief Complaint: [Headache] History of Present Illness: The patient is a 42 F [who presents the emergency department headache. It started 2 days ago. In the right side of her head and right cheondoism. No vision changes. She describes nausea and vomiting. She was seen here twice yesterday. She did receive prescription Toradol and that helps with the headache but then she started vomiting this evening. No fevers or chills. This is similar to previous headaches she has had in the past. No balance disturbances numbness tingling or weakness. She has a history of smoking. She has had multiple CAT scans in the past. She has never followed up does not have a primary care doctor or neurologist.] Physical Examination: [] WN WD NAD No tenderness over the right cheondoism PERRL EOMI MMM NECK supple and nontender, no masses RRR no murmur rub or gallop, no peripheral edema, symmetric radial pulses CTAB no respiratory distress ABDOMEN is soft and nontender, normal bowel sounds, no distension, no rebound or guarding SKIN is warm and dry no rashes Alert and Oriented x3, CN II-XII in tact, no motor or sensory deficits, gait normal No lymphadenopathy Test Results: [] Emergency Department Course and Treatment: [Patient was given benadryl decadron and reglan. She was ordered fluids. labs were ordered. after receiving medications patient eloped from the emergency department without notifying staff. ] Treatment Plan: [] Disposition: [eloped] Impression: [recurrent headache] This note was generated with [employer] dictation software. It may contain incorrect words, spelling, and punctuation that were not noted in review of the chart prior to signing ED Disposition - Plan for ED Patient: Chief Complaint: Headache Referrals: Care Physician,No Primary [Primary Care Provider] -
[2017-07-28] MEDS: 0.9% Normal Saline 1,000 ML 999 ML IV (05:28)
[2017-07-28] MEDS: DiphenhydrAMINE 50 MG/ML Syringe 25 MG IV (05:29)
[2017-07-28] MEDS: Metoclopramide 10 MG/2 ML Vial IV (05:29)
[2017-07-28 05:34] LABS: Absolute Lymphocyte Count 1.13 X10^3/ul (0.83-4.51); Absolute Neutrophil Count 3.5 X10^3/uL (2.0-7.7); Basophil# 0.01 X10^3/uL; Basophil% 0.2 % (0-1); Eosinophil# 0.09 X10^3/uL; Eosinophils% 1.7 % (0-5); Hematocrit 38.1 % (37-47); Hemoglobin 12.5 g/dl (12.0-15.0); Lymphocyte # 1.13 X10^3/ul (4.0); Lymphocyte % 21.9 % (19-41); Mean Corp Hgb Conc 32.8 g/gl (32-36); Mean Corpuscular Hgb 32.2 pg (27.0-32.0); Mean Corpuscular Volume 98.2 fL (81-99); Mean Platelet Vol. 10.2 fl (6.2-12.0); Monocyte# 0.39 X10^3/uL; Monocyte% 7.6 % (0-10); Neutrophil # 3.53 X10^3/uL (2.7-7.7); Neutrophil % 68.6 % (47-70); Platelet Count 217 K/mm3 (150-450); RBC Distribution Width CV 12.5 % (11.6-14.6); RBC Distribution Width SD 44.3 fl (35.1-43.9); Red Blood Count 3.88 M/mm3 (4.2-5.4); White Blood Count 5.2 K/mm3 (4.4-11.0)
[2017-07-28 05:36] LABS: POSITIVE COUNT NO; POSITIVE DIFFERENTIAL NO; POSITIVE MORPHOLOGY NO
--- NOTE | 2017-07-28 05:48 | ED.RN ---
PT PULLED HER IV OUT AND LEFT, PT SEEN WALKING OUT.
[2017-07-28 05:53] LABS: Anion Gap 11 (5-15); BUN 13 mg/dL (7-18); BUN/Creat Ratio 19.5 RATIO (10-20); Chloride 113 mmol/L (98-107); Creatinine, Serum 0.66 mg/dL (0.55-1.02); EST Glomerular Filtration Rate 103 mL/min (>60); Est Glom Filt Rate - Afr Amer 125 mL/min (>60); Estimated Creatinine Clearance 116.05 ml/min; Glucose 90 mg/dL (74-106); Potassium 3.2 mmol/L (3.5-5.1); Sodium Level 146 mmol/L (136-145)
[2017-07-28 05:54] LABS: Erythrocyte Sedimentation Rate 3 mm/hr (0-20)
== END 2017-07-28 06:23 | disposition home or self-care (01) ==
PROVIDERS: Emergency Provider Emergency Medicine
DX: R51 Headache (principal); Z87.891 Personal history of nicotine dependence
CPT/HCPCS: 80048; 85025; 85652; 96374; 96375; 99282; J7030; A4216

== ENCOUNTER 2017-08-29 10:19 | Emergency (ER) | payer MEDICAID, SELFPAY ==
[2017-08-29 10:19] VITALS: BP 124/75; PULSE 80; RESP 17; TEMP 36.4; O2SAT 100; BMI 24.7
[2017-08-29 11:00] LABS: Absolute Lymphocyte Count 1.02 X10^3/ul (0.83-4.51); Absolute Neutrophil Count 6.2 X10^3/uL (2.0-7.7); Basophil# 0.01 X10^3/uL; Basophil% 0.1 % (0-1); Eosinophil# 0.06 X10^3/uL; Eosinophils% 0.8 % (0-5); Hemoglobin 12.9 g/dl (12.0-15.0); Lymphocyte # 1.02 X10^3/ul (4.0); Lymphocyte % 13.3 % (19-41); Mean Corp Hgb Conc 33.1 g/gl (32-36); Mean Corpuscular Hgb 31.9 pg (27.0-32.0); Mean Corpuscular Volume 96.5 fL (81-99); Mean Platelet Vol. 9.8 fl (6.2-12.0); Monocyte# 0.38 X10^3/uL; Monocyte% 4.9 % (0-10); Neutrophil % 80.8 % (47-70); POSITIVE COUNT NO; POSITIVE DIFFERENTIAL NO; POSITIVE MORPHOLOGY NO; Platelet Count 253 K/mm3 (150-450); RBC Distribution Width CV 12.2 % (11.6-14.6); RBC Distribution Width SD 41.8 fl (35.1-43.9); Red Blood Count 4.04 M/mm3 (4.2-5.4); White Blood Count 7.7 K/mm3 (4.4-11.0)
[2017-08-29] MEDS: 0.9% Normal Saline 1,000 ML 1000 ML IV (11:01)
[2017-08-29] MEDS: DiphenhydrAMINE 50 MG/ML Syringe 25 MG IV (11:01)
[2017-08-29] MEDS: Ketorolac 30 MG/ML Syringe IV (11:01)
[2017-08-29 11:08] LABS: Mucous, Urine 0 SEEN /hpf (<or=2+); Squamous Epithelial Cells - UA 0 SEEN /hpf (5-10)
[2017-08-29 11:11] LABS: Color, Urine Yellow (Yellow); Glucose, Dipstick Normal (Normal); Leukocyte Esterase-Dipstick 500 /ul (Negative); Nitrite-Dipstick Positive (Negative); Occult Blood-Urine 150 /ul (Negative); Protein-Dipstick 100 mg/dl (Negative); Specific Gravity, Urine 1.015 (1.002-1.030); Urine Clarity Cloudy (Clear); Urine Urobilinogen 4 mg/dl (Normal)
[2017-08-29 11:11] LABS: Anion Gap 7 (5-15); BUN 9 mg/dL (7-18); BUN/Creat Ratio 10.7 RATIO (10-20); Calcium,Total 8.8 mg/dL (8.5-10.1); Chloride 110 mmol/L (98-107); Creatinine, Serum 0.84 mg/dL (0.55-1.02); EST Glomerular Filtration Rate 79 mL/min (>60); Est Glom Filt Rate - Afr Amer 96 mL/min (>60); Estimated Creatinine Clearance 91.18 ml/min; Glucose 89 mg/dL (74-106); Potassium 3.5 mmol/L (3.5-5.1); Sodium Level 144 mmol/L (136-145)
[2017-08-29 11:12] LABS: Urine Bilirubin Dipstick 1 mg/dL (Negative)
[2017-08-29 11:15] LABS: Ketone-Dipstick 150 mg/dl (Negative)
[2017-08-29 11:20] LABS: Bacteria 1+ /hpf (None Seen); Red Blood Cells-Urine 10-25 SEEN /hpf (0-5); White Blood Cells 50-100 SEEN /hpf (0-5)
[2017-08-29 11:50] LABS: Pregnancy, Serum, hCG Quali. NEGATIVE Negative (0-9 Nonpreg)
--- NOTE | 2017-08-29 12:07 | ED.VISSUMM ---
- ER Visit Summary Date of Service: 08/29/17 Chief Complaint: [Headache and dysuria] History of Present Illness: The patient is a 42 F [presents the emergency department with complaint of headache that started this morning. Patient has a history of chronic migraines and this headache is similar to prior headaches she has had before. Patient describes the headache is more frontal. Throbbing. Describes it as moderate in severity. Patient does have nausea with it and some mild photophobia. Patient also states that for about the last week she has had dysuria and frequency. Patient planes of lower abdominal discomfort. Patient denies any fever. She has had increased stress of late.] Physical Examination: [HEENT-PERRLA, EOMI. Cranial nerves II through XII grossly intact. TMs clear. Mucous membranes moist. No adenopathy. Cardiovascular-regular rate and rhythm without murmur or ectopy Lungs-clear to auscultation, chest wall stable without crepitus or subcu emphysema Abdomen-normoactive bowel sounds, soft. Patient has tenderness over the lower abdomen diffusely. Neuro zgbf-gefdgu-dyvf and heel smith testing within normal limits, negative Romberg, negative pronator drift, fundi benign Extremities-intact ?4, normal range of motion, normal pulses, atraumatic] Test Results: [CBC with differential obtained showed a white blood cell count 7.7, hemoglobin 13, hematocrit 39. Chemistries unremarkable. Urinalysis was positive for nitrites, 50-100 WBCs, 500 leukocyte esterase, and +1 bacteria.] Emergency Department Course and Treatment: [Patient was given a liter normal same fluid bolus as well as treated with Phenergan and Toradol. Patient felt much improved. Patient was started on Bactrim p.o.] Treatment Plan: [Patient will be started on Bactrim.] Disposition: [Discharged home in stable condition. Patient advised to return if worsening abdominal pain, vomiting, dehydration, or condition should worsen in any way.] Impression: [UTI Migrainous cephalgia] This note was generated with [employer]kipster dictation software. It may contain incorrect words, spelling, and punctuation that were not noted in review of the chart prior to signing ED Disposition - Plan for ED Patient: Chief Complaint: Headache Referrals: Care Physician,No Primary [Primary Care Provider] -
--- NOTE | 2017-08-29 12:10 | ED.DCSUM_ITS ---
- ER Visit Summary Date of Service: 08/29/17 Chief Complaint: [Headache and dysuria] History of Present Illness: The patient is a 42 F [presents the emergency department with complaint of headache that started this morning. Patient has a history of chronic migraines and this headache is similar to prior headaches she has had before. Patient describes the headache is more frontal. Throbbing. Describes it as moderate in severity. Patient does have nausea with it and some mild photophobia. Patient also states that for about the last week she has had dysuria and frequency. Patient planes of lower abdominal discomfort. Patient denies any fever. She has had increased stress of late.] Physical Examination: [HEENT-PERRLA, EOMI. Cranial nerves II through XII grossly intact. TMs clear. Mucous membranes moist. No adenopathy. Cardiovascular-regular rate and rhythm without murmur or ectopy Lungs-clear to auscultation, chest wall stable without crepitus or subcu emphysema Abdomen-normoactive bowel sounds, soft. Patient has tenderness over the lower abdomen diffusely. Neuro [id number] and heel smith testing within normal limits, negative Romberg, negative pronator drift, fundi benign Extremities-intact ?4, normal range of motion, normal pulses, atraumatic] Test Results: [CBC with differential obtained showed a white blood cell count 7.7, hemoglobin 13, hematocrit 39. Chemistries unremarkable. Urinalysis was positive for nitrites, 50-100 WBCs, 500 leukocyte esterase, and +1 bacteria.] Emergency Department Course and Treatment: [Patient was given a liter normal same fluid bolus as well as treated with Phenergan and Toradol. Patient felt much improved. Patient was started on Bactrim p.o.] Treatment Plan: [Patient will be started on Bactrim.] Disposition: [Discharged home in stable condition. Patient advised to return if worsening abdominal pain, vomiting, dehydration, or condition should worsen in any way.] Impression: [UTI Migrainous cephalgia] This note was generated with [employer] dictation software. It may contain incorrect words, spelling, and punctuation that were not noted in review of the chart prior to signing ED Disposition - Plan for ED Patient: Chief Complaint: Headache Referrals: Care Physician,No Primary [Primary Care Provider] -
--- NOTE | 2017-08-29 12:10 | ED.DEP ---
ED Disposition - Plan for ED Patient: Chief Complaint: Headache Instructions: ED Headache Migraine, ED UTI Cystitis Female Prescriptions: Smz/Tmp Ds [Bactrim Ds] 1 tab PO BID #10 tab Referrals: Care Physician,No Primary [Primary Care Provider] - Jose Obrien MD [NON-STAFF] - 3-5 Days
[2017-08-29 12:26] VITALS: BP 114/64; PULSE 117; RESP 18; O2SAT 100
--- NOTE | 2017-08-29 12:27 | ED.RN ---
asked pt to give us another urine sample for culture. pt became very agitated staying, I told them I could not the first time. take my IV out. I'm leaving. refused to take PO bactrim. Tried to explain to pt why we need sample and for her to take med. and pt stated you should have watched your mouth called lab and they have enough urine to run culture. informed physician.
== END 2017-08-29 12:31 | disposition home or self-care (01) ==
PROVIDERS: Emergency Provider Emergency Medicine
DX: G43.909 Migraine, unspecified, not intractable, without status migrainosus (principal); N39.0 Urinary tract infection, site not specified; B96.89 Other specified bacterial agents as the cause of diseases classified elsewhere
CPT/HCPCS: 80048; 81001; 84703; 85025; 87086; 87088; 87186; 96361; 96374; 96375; 99283; J7030; A4216

== ENCOUNTER 2017-09-23 01:28 | Emergency (ER) | payer MEDICAID, SELFPAY ==
[2017-09-23 01:29] VITALS: BP 124/63; PULSE 91; RESP 18; TEMP 36.6; O2SAT 99; BMI 25.0
--- NOTE | 2017-09-23 01:42 | ED.VIS.GEN ---
History of Present Illness Chief Complaint: Headache Informant: Patient Onset: Hours - 9-10 Context: Gradual Onset Timing: Continuous Quality: pressure Location: entire head Current Severity: Severe Maximum Severity: Severe Worsened by: nothing Relieved by: nothing, but hasn't tried any medications Associated Symptoms: none -- no n/v, light sens, diplopia, blurry vision, focal neuro sx, fever Narrative: Patient has a history of migraines, she states she takes no medication for them but has come to the hospital before and Toradol has made them better. She took no medicines for this 1 yet today. She states she just tried to rest. This is similar feeling to prior migraines which are usually right retro-orbital, except this one is also everywhere. She states it started that way. No loss of consciousness, feelings of a thunderclap. No recent head injury or illnesses or new medications. - Past Medical History (1) Migraines Status: Chronic Past Medical History - Allergies and Home Meds Allergies/Adverse Reactions: Allergies hydromorphone HCl [From Dilaudid] Adverse Reaction (Verified 09/23/17 01:35) Other Primary Care Physician: Care Physician,No Primary [Primary Care Provider] - Smoking Status: Former smoker Drugs: None Review of Systems All systems negative except as indicated General: Denies: Chills, Fever Eyes: Denies: Visual changes - bilaterally Cardiovascular: Denies: Chest pain, Palpitations Respiratory: Denies: Dyspnea Gastrointestinal: Denies: Nausea, Vomiting Musculoskeletal: Denies: Neck pain - Or stiffness Neurological: Reports: Headache. Denies: Weakness, Parasthesia, Numbness Physical Exam Vital Signs/Narrative: Vital Signs Temp Pulse Resp BP Pulse Ox 09/23/17 01:29 97.9 F 91 18 124/63 H 99 General: Well nourished, Well developed Head: Normocephalic, Atraumatic Eyes: Perrl, EOMI Neck: Supple, Nontender, No lymphadenopathy Extremities: Nontender, No edema Skin: Normal color, No rash Neurological: Alert, Oriented x3, Cranial nerves II-XII grossly intact, Normal Strength, Normal Sensation Psychological: Normal affect Diagnostic/Tx/Re-eval - Medical Decision Making Patient drove herself, and told me that Toradol helped in the past. I told her that I would be happy to order her an injection of Toradol, and we would see how that did, and if it did not help enough, we could talk about treatment with other medications. She was okay with that. I was later told by nursing that the patient left because she wanted an IV and not an injection. (In this EMR, it is not possible to indicate that the patient left after evaluation/eloped, but she was not technically discharged. She eloped.) ED Disposition - Plan for ED Patient: Disposition: Home or Assisted Living Chief Complaint: Headache Diagnosis: Migraine headache
--- NOTE | 2017-09-23 02:23 | ED.RN ---
PT REFUSED PAIN MEDICATION. WALKS OUT PRIOR TO DISCHARGE INSTRUCTIONS.
[2017-09-23 02:24] VITALS: RESP 18
== END 2017-09-23 02:25 | disposition home or self-care (01) ==
PROVIDERS: Emergency Provider Emergency Medicine
DX: G43.909 Migraine, unspecified, not intractable, without status migrainosus (principal); Z87.891 Personal history of nicotine dependence; Z53.21 Procedure and treatment not carried out due to patient leaving prior to being seen by health care provider
CPT/HCPCS: 99282

== ENCOUNTER 2017-09-26 17:02 | Emergency (ER) | payer MEDICAID, SELFPAY ==
[2017-09-26 17:03] VITALS: BP 108/76; PULSE 80; RESP 16; TEMP 36.7; O2SAT 99; BMI 24.6
--- NOTE | 2017-09-26 17:44 | ED.VISSUMM ---
- ER Visit Summary Date of Service: 09/26/17 Chief Complaint: Headache History of Present Illness: The patient is a 42 F presenting with headache. She states she woke up with headache this morning and it has gradually worsened throughout the day. She has nausea with no vomiting. She denies fever. Denies trauma. She has history of migraines and this feels similar. Denies other complaints. She tried no medications at home prior to arrival. She states typically she is given Toradol and Benadryl and this improves her pain. Physical Examination: Vitals are stable. Patient is afebrile. Alert no acute distress. HEENT exam is unremarkable. Neck is supple. No meningismus Lungs are clear and equal bilaterally. Heart is regular rate and rhythm. Abdomen is soft nontender nondistended. Extremities are unremarkable. Skin is warm and dry. No focal neurologic deficit. Remainder of exam is unremarkable. Emergency Department Course and Treatment: Patient is given Toradol and Benadryl IV with improvement. On repeat evaluation, she is resting comfortably. She states her headache has improved. She is advised to follow-up with primary care physician. Advised return to ED if worsening complaints. Disposition: Discharge home Impression: Headache This note was generated with [employer] dictation software. It may contain incorrect words, spelling, and punctuation that were not noted in review of the chart prior to signing ED Disposition - Plan for ED Patient: Chief Complaint: Headache Instructions: ED Cephalgia Unspecified Referrals: Care Physician,No Primary [Primary Care Provider] -
[2017-09-26] MEDS: Ketorolac 30 MG/ML Syringe IV (18:04)
[2017-09-26] MEDS: DiphenhydrAMINE 50 MG/ML Syringe 25 MG IV (18:04)
--- NOTE | 2017-09-26 19:18 | ED.DEP ---
ED Disposition - Plan for ED Patient: Chief Complaint: Headache Instructions: ED Cephalgia Unspecified Referrals: Care Physician,No Primary [Primary Care Provider] -
[2017-09-26 20:31] VITALS: BP 118/59; PULSE 83; RESP 18; O2SAT 100
== END 2017-09-26 20:32 | disposition home or self-care (01) ==
PROVIDERS: Emergency Provider Emergency Medicine
DX: R51 Headache (principal)
CPT/HCPCS: 96374; 96375; 99283; A4216

== ENCOUNTER 2017-10-27 17:19 | Emergency (ER) | payer MEDICAID, SELFPAY ==
[2017-10-27 17:20] VITALS: BP 111/77; PULSE 80; RESP 16; TEMP 37; O2SAT 99; BMI 23.6
--- NOTE | 2017-10-27 18:49 | ED.DCSUM_ITS ---
- ER Visit Summary Date of Service: 10/27/17 Chief Complaint: [] The patient walked out of the emergency department, she indicated she change her mind did not wish to be seen, I went to see her as soon as she was placed in the bed when I walked in registration was trying to get in general demographic information from her such as address and phone number and she said she was leaving, she changed her mind, she simply got up and walked out of the emergency department, would not explain her decision, would not engage in further discussion of any kind Vital signs were within normal range she appeared no distress History of Present Illness: The patient is a 42 F [] Physical Examination: [] Test Results: [] Emergency Department Course and Treatment: [] Treatment Plan: [] Disposition: [] Impression: [] Walked out of the emergency department for evaluation could be done This note was generated with [employer] dictation software. It may contain incorrect words, spelling, and punctuation that were not noted in review of the chart prior to signing ED Disposition - Plan for ED Patient: Chief Complaint: Headache Referrals: Care Physician,No Primary [Primary Care Provider] -
--- NOTE | 2017-10-27 18:52 | ED.RN ---
PT WAS GETTING REGISTERED AND THE DOCTOR WALKED IN AND THE PATIENT STATED THAT SHE WAS LEAVING AND JUST WALKED OUT WITHOUT BEING SEEN
== END 2017-10-27 18:52 | disposition left against medical advice (07) ==
LOC: ED 20:28
PROVIDERS: Emergency Provider Emergency Medicine
DX: R69 Illness, unspecified (principal)

== ENCOUNTER 2017-10-27 22:26 | Emergency (ER) | payer MEDICAID, SELFPAY | END 2017-10-27 23:00 | disposition left against medical advice (07) | LOC: ED 22:29 | PROVIDERS: Emergency Provider Emergency Medicine | DX: R69 Illness, unspecified (principal) ==

== ENCOUNTER 2017-10-30 09:39 | Emergency (ER) | payer MEDICAID, SELFPAY ==
[2017-10-30 09:41] VITALS: BP 119/63; PULSE 77; RESP 18; TEMP 36.6; O2SAT 100; BMI 26.6
--- NOTE | 2017-10-30 10:01 | ED.VISSUMM ---
- ER Visit Summary Date of Service: 10/30/17 Chief Complaint: [] Typical migraine headache History of Present Illness: The patient is a 42 F [] patient reports a long history of migraine headaches, has had an exacerbation for the last few days no nausea vomiting fever no URI symptoms no neck stiffness no chest pain abdominal pain numbness or paresthesias she dropped to the emergency department she came in and left the emergency department walking out. She indicates the headache is typical not different anyway she could she has had prior brain imaging that shows no signs of brain aneurysm tumor she was under the care of physicians but now she does not see a physician she reports even though she is given a physician via her care source insurance she takes Tylenol for her pain Physical Examination: [] She is in no distress lying flat her vital signs are within normal range head neck chest unremarkable very supple nose and throat unremarkable lungs clear heart tones normal abdomen soft nontender her neuro exam is unremarkable she is able stand and walk motor sensory gait cranial nerves are all normal Patient indicated that Toradol usually helps her headaches we prescribed Toradol IM Zofran p.o. she indicated she wanted the Toradol IV I explained her that there really is no indication for IV and I am was just as efficacious as IV, and she said basically that if I did not give her exactly what she wanted she would leave the emergency department I explained her we would follow the appropriate treatment protocols for her She will be treated as above and asked to follow-up with her assigned physician for further management and return for change in symptoms Test Results: [] Emergency Department Course and Treatment: [] Treatment Plan: [] Disposition: [] Home stable Impression: [] Acute recurrent migraine headache This note was generated with [employer] dictation software. It may contain incorrect words, spelling, and punctuation that were not noted in review of the chart prior to signing ED Disposition - Plan for ED Patient: Chief Complaint: Headache Referrals: Care Physician,No Primary [Primary Care Provider] -
--- NOTE | 2017-10-30 10:03 | ED.DEP ---
ED Disposition - Plan for ED Patient: Chief Complaint: Headache Instructions: ED Headache Migraine Referrals: Care Physician,No Primary [Primary Care Provider] -
== END 2017-10-30 10:10 | disposition left against medical advice (07) ==
PROVIDERS: Emergency Provider Emergency Medicine
DX: G43.909 Migraine, unspecified, not intractable, without status migrainosus (principal)

== ENCOUNTER 2017-10-31 04:18 | Emergency (ER) | payer MEDICAID, SELFPAY ==
[2017-10-31 04:19] VITALS: BP 101/62; PULSE 81; RESP 16; TEMP 36.6; O2SAT 100; BMI 24.5
--- NOTE | 2017-10-31 04:42 | ED.VISSUMM ---
- ER Visit Summary Date of Service: 10/31/17 Chief Complaint: Headache History of Present Illness: The patient is a 42 F intermittent right-sided headache over 2 days. No falls or head injuries. Phonophobia. Nausea. No vomiting. No fevers. Increased stress. Similar headaches in the past with migraines. Head CT in May of this year no acute intracranial process. Physical Examination: General: Alert and oriented ?3, no acute distress HEENT: Normocephalic, atraumatic. Moist mucosa membranes Neck: supple, nontender. No meningismus Cardiovascular: Regular rate and rhythm, no murmurs Respiratory: Normal breath sounds, symmetric, no distress Abdomen: Soft, nontender, nondistended Extremities: Nontender, no edema, pulses intact ?4 Neuro: no focal neurological deficits. Test Results: [] Emergency Department Course and Treatment: Patient no focal neurologic deficits. Discussed treatment options. She agrees with Toradol and Benadryl and fluids. She is adamant about not receiving Reglan stating I will not let them give it to me.. She would not explain why. Reevaluation, symptoms were improving. Patient discharged with outpatient follow-up. Treatment Plan: [] Disposition: Discharge Impression: Migraine headache This note was generated with [employer] dictation software. It may contain incorrect words, spelling, and punctuation that were not noted in review of the chart prior to signing ED Disposition - Plan for ED Patient: Disposition: Home or Assisted Living Chief Complaint: Headache Diagnosis: Migraines Instructions: ED Headache Migraine Referrals: Care Physician,No Primary [Primary Care Provider] - Purnima Prakash DO [STAFF PHYSICIAN] - 3-5 Days
[2017-10-31] MEDS: 0.9% Normal Saline 1,000 ML 999 ML IV (04:50)
[2017-10-31] MEDS: DiphenhydrAMINE 50 MG/ML Syringe 25 MG IV (04:50)
[2017-10-31] MEDS: Ketorolac 30 MG/ML Syringe IV (04:51)
[2017-10-31 06:17] VITALS: RESP 16
== END 2017-10-31 06:18 | disposition home or self-care (01) ==
PROVIDERS: Emergency Provider Emergency Medicine
DX: G43.909 Migraine, unspecified, not intractable, without status migrainosus (principal); Z87.891 Personal history of nicotine dependence
CPT/HCPCS: 96361; 96374; 96375; 99283; J7030; A4216

== ENCOUNTER 2017-11-19 10:37 | Emergency (ER) | payer MEDICAID, SELFPAY ==
[2017-11-19 10:38] VITALS: BP 130/76; PULSE 69; RESP 16; TEMP 36.8; O2SAT 99; BMI 23.9
[2017-11-19] MEDS: Ketorolac 30 MG/ML Syringe IV (11:43)
[2017-11-19] MEDS: DiphenhydrAMINE 50 MG/ML Syringe 25 MG IV (11:43)
[2017-11-19] MEDS: 0.9% Normal Saline 1,000 ML 999 ML IV (11:43)
--- NOTE | 2017-11-19 12:18 | ED.VISSUMM ---
- ER Visit Summary Date of Service: 11/19/17 Chief Complaint: Headache History of Present Illness: The patient is a 42 F who presents with a headache. She has a history of frequent emergency department visits for the same. She states her current headache started yesterday and was gradual in onset it is typical in character and location to her previous headaches. She also developed nausea and vomiting this morning again this is typical of her headaches. She normally improves with Toradol and Benadryl. She denies fevers. No history of fall or head injury or trauma. Physical Examination: Afebrile vitals are normal Moist mucous membranes Pupils are equally round reactive to light Neck is supple with no meningismus Heart regular rate and rhythm Lungs clear Alert and oriented with no focal or lateralizing neurological deficits Test Results: Not indicated Emergency Department Course and Treatment: Patient was treated with IV fluids Toradol and Benadryl. She does report symptomatic improvement on reevaluation. She was discharged home in good condition. Treatment Plan: [] Disposition: Discharge Impression: Headache This note was generated with [employer] dictation software. It may contain incorrect words, spelling, and punctuation that were not noted in review of the chart prior to signing ED Disposition - Plan for ED Patient: Chief Complaint: Headache Referrals: Care Physician,No Primary [Primary Care Provider] -
--- NOTE | 2017-11-19 12:19 | ED.DEP ---
ED Disposition - Plan for ED Patient: Chief Complaint: Headache Instructions: ED Cephalgia Unspecified Referrals: Care Physician,No Primary [Primary Care Provider] -
[2017-11-19 12:36] VITALS: BP 126/78; PULSE 69; RESP 16; O2SAT 98
== END 2017-11-19 12:44 | disposition home or self-care (01) ==
LOC: ED 11:50
PROVIDERS: Emergency Provider Emergency Medicine
DX: G43.909 Migraine, unspecified, not intractable, without status migrainosus (principal)
CPT/HCPCS: 96361; 96374; 96375; 99283; J7030

== ENCOUNTER 2017-12-11 20:38 | Emergency (ER) | payer MEDICAID, SELFPAY ==
[2017-12-11 20:38] VITALS: BP 103/70; PULSE 94; RESP 20; TEMP 36.3; O2SAT 99; BMI 25.8
[2017-12-11] MEDS: DiphenhydrAMINE 50 MG/ML Syringe 25 MG IV (22:58)
[2017-12-11] MEDS: 0.9% Normal Saline 1,000 ML 1000 ML IV (22:59)
[2017-12-11] MEDS: Ketorolac 30 MG/ML Syringe IV (22:59)
[2017-12-11] MEDS: Metoclopramide 10 MG/2 ML Vial 5 MG IV (23:49)
--- NOTE | 2017-12-12 00:52 | ED.VISSUMM ---
- ER Visit Summary Date of Service: 12/12/17 Chief Complaint: Headache History of Present Illness: The patient is a 42 F who presents with a headache that began today. Patient states that has been gradually getting worse throughout the day today. Patient states this is similar to prior migraine headaches. Patient states the pain is worse over the right side of her head. Patient admits to some nausea and vomiting. Patient denies any fevers or chills. Patient admits to some photophobia. Patient denies any paresthesias or weakness. Patient denies any neck pain. Physical Examination: Vital signs are stable. Patient is afebrile. Patient is in no acute distress. Oral mucosa is pink and moist. Neck is supple. There is no JVD. There is no meningismus noted. Heart was regular rate and rhythm. Lungs are clear and equal bilaterally. Cranial nerves II through XII are intact. There are no focal motor or sensory deficits noted. The remaining physical exam is within normal limits. Emergency Department Course and Treatment: Patient was given IV fluids, Toradol, Benadryl, and Reglan. Patient felt better on reevaluation. Patient was instructed to rest in a dark quiet room. Patient was instructed to follow-up with her primary care physician in 7-10 days. Patient understood and was agreeable with the plan. All questions were answered. Disposition: Discharged home Impression: Migraine headache This note was generated with [employer] dictation software. It may contain incorrect words, spelling, and punctuation that were not noted in review of the chart prior to signing ED Disposition - Plan for ED Patient: Disposition: Home or Assisted Living Chief Complaint: Headache Diagnosis: Migraines Instructions: ED Headache Migraine Referrals: Care Physician,No Primary [Primary Care Provider] -
--- NOTE | 2017-12-12 00:58 | ED.DCSUM_ITS ---
- ER Visit Summary Date of Service: 12/12/17 Chief Complaint: Headache History of Present Illness: The patient is a 42 F who presents with a headache that began today. Patient states that has been gradually getting worse throughout the day today. Patient states this is similar to prior migraine headaches. Patient states the pain is worse over the right side of her head. Patient admits to some nausea and vomiting. Patient denies any fevers or chills. Patient admits to some photophobia. Patient denies any paresthesias or weakness. Patient denies any neck pain. Physical Examination: Vital signs are stable. Patient is afebrile. Patient is in no acute distress. Oral mucosa is pink and moist. Neck is supple. There is no JVD. There is no meningismus noted. Heart was regular rate and rhythm. Lungs are clear and equal bilaterally. Cranial nerves II through XII are i ntact. There are no focal motor or sensory deficits noted. The remaining physical exam is within normal limits. Emergency Department Course and Treatment: Patient was given IV fluids, Toradol, Benadryl, and Reglan. Patient felt better on reevaluation. Patient was instructed to rest in a dark quiet room. Patient was instructed to follow-up with her primary care physician in 7-10 days. Patient understood and was agreeable with the plan. All questions were answered. Disposition: Discharged home Impression: Migraine headache This note was generated with [employer] dictation software. It may contain incorrect words, spelling, and punctuation that were not noted in review of the chart prior to signing ED Disposition - Plan for ED Patient: Disposition: Home or Assisted Living Chief Complaint: Headache Diagnosis: Migraines Instructions: ED Headache Migraine Referrals: Care Physician,No Primary [Primary Care Provider] -
[2017-12-12 01:03] VITALS: RESP 18
== END 2017-12-12 01:04 | disposition home or self-care (01) ==
PROVIDERS: Emergency Provider Emergency Medicine
DX: G43.909 Migraine, unspecified, not intractable, without status migrainosus (principal)
CPT/HCPCS: 96361; 96374; 96375; 99285; J7030; A4216

== ENCOUNTER 2018-01-07 04:51 | Emergency (ER) | payer MEDICAID, SELFPAY ==
[2018-01-07 04:52] VITALS: BP 116/64; PULSE 78; RESP 16; TEMP 36.4; O2SAT 100; BMI 25.8
--- NOTE | 2018-01-07 05:20 | ED.VISSUMM ---
- ER Visit Summary Date of Service: 01/07/18 Chief Complaint: Headache History of Present Illness: The patient is a 42 F who presents with a headache. She has extensive prior visits for headaches. Currently she can planes of intermittent headaches over the last 2 days which wax and wane. This is similar in location and character to prior migraines. She had one episode of nonbloody nonbilious emesis. She does not see her primary care physician. She states that she was put on a maintenance medication for migraines on one previous occasion but got sick after 2 weeks. She states that because of this people are not allowed to mess with my medications. Physical Examination: Afebrile vitals are normal Moist mucous membranes Heart regular rate and rhythm Lungs are clear Abdomen soft Alert and oriented with no focal or lateralizing neurological deficits Test Results: Not indicated Emergency Department Course and Treatment: Patient states she normally receives Toradol and Benadryl with improvement of symptoms. I discussed the plan to give her intramuscular Toradol and Benadryl as well as oral Zofran ODT. The patient states that she has to get Toradol and Benadryl IV in order for it to work. I explained that intramuscular medication should be just as efficacious and I do not believe that she needs IV Benadryl. After leaving the room the patient eloped from the emergency department. Treatment Plan: [] Disposition: Discharge Impression: Migraine This note was generated with [employer] dictation software. It may contain incorrect words, spelling, and punctuation that were not noted in review of the chart prior to signing ED Disposition - Plan for ED Patient: Chief Complaint: Headache Referrals: Care Physician,No Primary [Primary Care Provider] -
--- NOTE | 2018-01-07 05:21 | ED.RN ---
PT UPSET RECEIVING IM MEDICATIONS AND NOT IV. PT REMOVED BP CUFF AND WALKED OUT OF THE ROOM
== END 2018-01-07 05:27 | disposition home or self-care (01) ==
PROVIDERS: Emergency Provider Emergency Medicine
DX: G43.909 Migraine, unspecified, not intractable, without status migrainosus (principal)
CPT/HCPCS: 99282

== ENCOUNTER 2018-02-10 02:12 | Emergency (ER) | payer MEDICAID, SELFPAY ==
[2018-02-10 02:12] VITALS: BP 118/68; PULSE 90; RESP 16; TEMP 36.6; O2SAT 100; BMI 23.6
--- NOTE | 2018-02-10 02:23 | ED.VISSUMM ---
- ER Visit Summary Date of Service: 02/10/18 Chief Complaint: [] Back pain History of Present Illness: The patient is a 42 F complaining of back pain for the last 4 days gradual onset. No injury. It is in her right parathoracic region. It hurts to move and twist. She is also having some discomfort in her posterior neck. She thinks she might have slept wrong. No injury. No associated symptoms. She has chronic migraines and feels like this is triggering a migraine. No home treatment. Physical Examination: [] Vital signs reviewed General: Well-nourished well-developed Head: Normocephalic atraumatic Eyes: Pupils equal round and reactive to light extraocular movements intact ENT: TMs clear no hemotympanum no trauma Neck: Nontender full range of motion. Mild tender to palpation right posterior paracervical. Decreased range of motion secondary to pain. Cardiovascular: Regular rate rhythm no murmurs normal S1-S2 Respiratory: No distress clear to auscultation bilaterally chest nontender Abdomen: Soft nontender nondistended normal bowel sounds no masses Back: Mild tenderness palpation right mid thoracic paraspinal musculature without swelling or deformity. Mild decreased range of motion secondary to pain no CVA tenderness Extremities: Nontender active range of motion ?4 extremities no trauma Skin: Normal color no trauma Neuro alert oriented cranial nerves II through XII intact normal strength sensation reflexes Test Results: [] Emergency Department Course and Treatment: [] Patient given injection of Toradol. She will follow-up and continue resting icing and anti-inflammatories. I do not feel she needs imaging. I do not feel she has an acute emergent cause. I feel this is musculoskeletal in nature. She can follow-up Treatment Plan: [] Disposition: [] Impression: [] Right posterior neck pain Right posterior midthoracic back pain This note was generated with [employer] dictation software. It may contain incorrect words, spelling, and punctuation that were not noted in review of the chart prior to signing ED Disposition - Plan for ED Patient: Chief Complaint: Back Referrals: Care Physician,No Primary [Primary Care Provider] -
--- NOTE | 2018-02-10 02:26 | ED.DEP ---
ED Disposition - Plan for ED Patient: Disposition: Home or Assisted Living Chief Complaint: Back Instructions: ED Neck Back Pain General Referrals: Care Physician,No Primary [Primary Care Provider] - Philip Batres MD [STAFF PHYSICIAN] -
[2018-02-10 02:30] VITALS: BP 120/72; PULSE 88; RESP 16; O2SAT 100
[2018-02-10] MEDS: Ketorolac 60 MG/2 ML Vial IM (02:33)
--- OUTSIDE RECORDS SUMMARY | 2018-03-28 16:00 | XMS RPT_ITS ---
:1975 Author Organization OHIP Support Name Relationship Address Phone JAYLAN CHASE Unavailable [address] [place] [address] D Unavailable Unavailable Unavailable D Unavailable Unavailable Unavailable JAYLAN CHASE Unavailable [address] [place] [address] D Unavailable Unavailable Unavailable LAWRENCE, ENMA Unavailable Unavailable + [place] [address] MARGE CHASEEN Unavailable [address] [place] [address] D Unavailable Unavailable Unavailable LAWRENCE, ENMA Unavailable Unavailable + [place] [address] MARGE CHASEEN Unavailable [address] [place] [address] D Unavailable Unavailable Unavailable LAWRENCE, ENMA Unavailable Unavailable + [place] [address] MARGE CHASEEN Unavailable [address] [place] [address] D Unavailable Unavailable Unavailable LAWRENCE, ENMA Unavailable Unavailable + [place] [address] RENA JAYLAN Unavailable [address] [place] [address] D Unavailable Unavailable Unavailable LAWRENCE, ENMA Unavailable Unavailable + [place] [address] MARGE CHASEEN Unavailable [address] [place] [address] D Unavailable Unavailable Unavailable LAWRENCE, ENMA Unavailable Unavailable + [place] [address] CHASE, JAYLAN Unavailable [address] [place] [address] D Unavailable Unavailable Unavailable LAWRENCELAUREE Unavailable Unavailable + [place] [address] CHASE, JAYLAN Unavailable [address] [place] [address] D Unavailable Unavailable Unavailable LAWRENCELAUREE Unavailable Unavailable + [place] [address] CHASE, JAYLAN Unavailable [address] [place] [address] D Unavailable Unavailable Unavailable LAWRENCELAUREE Unavailable Unavailable + [place] [address] CHASE, JAYLAN Unavailable [address] [place] [address] D Unavailable Unavailable Unavailable LAURE BRAVOE Unavailable Unavailable + [place] [address] CHASE, JAYLAN Unavailable [address] [place] [address] D Unavailable Unavailable Unavailable LAURE BRAVOE Unavailable Unavailable + [place] [address] CHASE, JAYLAN Unavailable [address] [place] [address] D Unavailable Unavailable Unavailable LAWRENCELAUREE Unavailable Unavailable + [place] [address] CHASE, JAYLAN Unavailable [address] [place] [address] D Unavailable Unavailable Unavailable LAWRENCEXIOMARAENMA Unavailable Unavailable + [place] [address] CHASE, JAYLAN Unavailable [address] [place] [address] D Unavailable Unavailable Unavailable LAWRENCEXIOMARAENMA Unavailable Unavailable + [place] [address] CHASE, JAYLAN Unavailable [address] [place] [address] D Unavailable Unavailable Unavailable LAWRENCE, ENMA Unavailable Unavailable + [place] [address] CHASE, JAYLAN Unavailable [address] [place] [address] D Unavailable Unavailable Unavailable LAWRENCE, ENMA Unavailable Unavailable + [place] [address] CHASE, JAYLAN Unavailable [address] [place] [address] D Unavailable Unavailable Unavailable LAWRENCE, ENMA Unavailable Unavailable + [place] [address] D Unavailable Unavailable Unavailable LAWRENCE, ENMA Unavailable Unavailable + [place] [address] D Unavailable Unavailable Unavailable LAWRENCE, ENMA Unavailable Unavailable + [place] [address] D Unavailable Unavailable Unavailable LAWRENCE, ENMA Unavailable Unavailable + [place] [address] D Unavailable Unavailable Unavailable LAWRENCE, ENMA Unavailable Unavailable + [place] [address] D Unavailable Unavailable Unavailable LAWRENCE, ENMA Unavailable Unavailable + [place] [address] D Unavailable Unavailable Unavailable LAWRENCE, ENMA Unavailable Unavailable + [place] [address] D Unavailable Unavailable Unavailable LAWRENCE, ENMA Unavailable Unavailable + [place] [address] CHASE, JAYLAN Unavailable [address] [place] [address] D Unavailable Unavailable Unavailable LAWRENCE, ENMA Unavailable Unavailable + [place] [address] D Unavailable Unavailable Unavailable LAWRENCE, ENMA Unavailable Unavailable + [place] [address] Care Team Providers Name Role Phone RAFAL CHILDS DO Attending Unavailable PHYSICIAN, NONE Primary Care Unavailable PHYSICIAN, NONE Primary Care Unavailable Arun WARREN, Faina Schmitt Attending Unavailable JOHN MEYER ([employer]NAGER) Attending Unavailable Primay Care Physicia, No Primary Care Unavailable Mingo Askew Attending Unavailable Primay Care Physicia, No Primary Care Unavailable Saniya Vaughn Attending Unavailable Primay Care Physicia, No Primary Care Unavailable Jaime Pittman Attending Unavailable PROVIDER, ED PHYSICIAN Attending Unavailable Primay Care Physicia, No Primary Care Unavailable Primay Care Physicia, No Primary Care Unavailable Saniya Vaughn Attending Unavailable Primay Care Physicia, No Primary Care Unavailable Katerine Osorio Attending Unavailable Primay Care Physicia, No Primary Care Unavailable Jaime Pittman Attending Unavailable Primay Care Physicia, No Primary Care Unavailable Jaime Pittman Attending Unavailable Primay Care Physicia, No Primary Care Unavailable Ungur, Remus Attending Unavailable Primay Care Physicia, No Primary Care Unavailable Jose Shell Attending Unavailable Primay Care Physicia, No Primary Care Unavailable Mingo Askew Attending Unavailable Primay Care Physicia, No Primary Care Unavailable Katerine Osorio Attending Unavailable Primay Care Physicia, No Primary Care Unavailable Katerine Osorio Attending Unavailable Primay Care Physicia, No Primary Care Unavailable Charli Morton Attending Unavailable Primay Care Physicia, No Primary Care Unavailable Fredis Delgado Attending Unavailable Primay Care Physicia, No Primary Care Unavailable Ungur, Zachariah Attending Unavailable Primay Care Physicia, No Primary Care Unavailable Rima Pierce Attending Unavailable Primay Care Physicia, No Primary Care Unavailable UngZachariah allison Attending Unavailable Primay Care Physicia, No Primary Care Unavailable SALLY ZHANG Attending Unavailable Primay Care Physicia, No Primary Care Unavailable Katerine Osorio Attending Unavailable Primay Care Physicia, No Primary Care Unavailable Ayesha Frye Attending Unavailable DewayneayyeAyesha moura Attending Unavailable Primay Care Physicia, No Primary Care Unavailable Primay Care Physicia, No Primary Care Unavailable Ayesha Frye Attending Unavailable Primay Care Physicia, No Primary Care Unavailable Chase Pratt Attending Unavailable Primay Care Physicia, No Primary Care Unavailable Fredis Delgado Attending Unavailable Primay Care Physicia, No Primary Care Unavailable Eddy Hill Attending Unavailable Primay Care Physicia, No Primary Care Unavailable Fredis Delgado Attending Unavailable PROBLEMS PROBLEMS No Problem Records FoundPROCEDURES PROCEDURES No Procedure Records FoundRESULTS RESULTS EMERGENCY DEPARTMENT Observed: 03/09/2018 Status: F Source: [place] SUMMARY 12:15 AM [facility] REPOSIT[facility] Medical Records Department [address] [place] [address] Emergency Department Summary 03/08/18 2353 MR#: [id number] Acct: [id number] Name: SARAH BRAVO Rep #: [id number] : 1975 42 From: Saniya Vaughn MD PCP: Care Physician, No Primary Status: DEP ER - ER Visit Summary Date of Service: 03/08/18 Chief Complaint: Headache History of Present Illness: The patient is a 42 F with history of migraines. She reports right-sided migraine that started yesterday due to change in weather. This morning she felt nauseated, but denies that currently. She was brought to see her PCP to establish care today but states she was too sick to make it to her appointment. Physical Examination: Vital signs unremarkable. Patient is lying in a darkened room. She is in no acute distress. Head neck examination unremarkable. Head and neck examination unremarkable. Heart is regular rate and rhythm. Lung sounds are clear. Abdomen is soft nontender. Neuro exam reveals no focal deficits. Test Results: [] Emergency Department Course and Treatment: Patient was given a liter of IV fluids and Toradol. On repeat evaluation she feels improved and is requesting discharge to home. Treatment Plan: [] Disposition: Discharge Impression: Migraine, improved This note was generated with PixelTalents dictation software. It may contain incorrect words, spelling, and punctuation that were not noted in review of the chart prior to signing ED Disposition - Plan for ED Patient: Chief Complaint: Headache Referrals: Care Physician,No Primary [Primary Care Provider] - What to do if you have Problems For any increased pain, shortness of breath, bleeding, nausea or vomiting, chest pain, or any unexpected problems, contact your Primary Care Provider. Call [facility] ([phone]) or report to the closest Emergency Room. Call 911 if necessary. 03/09/18 0015 <Electronically signed by Saniya Vaughn MD> Date Saniya Vaughn MD Cosigner Signature (If Indicated): Date CC: No Primary Care Physician DISCHARGE INSTRUCTION Observed: 03/08/2018 Status: F Source: [place] 11:55 PM [facility] Medical Records Department [address] [place] [address] Discharge Instruction 03/08/182354 MR#: [id number] Acct: [id number] Name: SARAH BRAVO KRISSY Rep #: [id number] : 1975 42 From: Saniya Vaughn MD PCP: Care Physician, No Primary Status: REG ER ED Disposition - Plan for ED Patient: Disposition: Home or Assisted Living Chief Complaint: Headache Instructions: ED Headache Migraine Additional Instructions: Follow-up with your [facility] provider as soon as possible. What to do if you have Problems For any increased pain, shortness of breath, bleeding, nausea or vomiting, chest pain, or any unexpected problems, contact your Primary Care Provider. Call [facility] ([phone]) or report to the closest Emergency Room. Call 911 if necessary. 03/08/182354 <Electronically signed by Saniya Vaughn MD> Date Saniya Vaughn MD Cosigner Signature (If Indicated): Date CC: No Primary Care Physician EMERGENCY DEPARTMENT Observed: 02/10/2018 Status: F Source: [place] SUMMARY 7:15 AM [facility] Medical Records Department [address] [place] [address] Emergency Department Summary 02/10/18 0223 MR#: [id number] Acct: [id number] Name: SARAH BRAVO Rep #: [id number] : 1975 42 From: Mingo Askew MD PCP: Care Physician, No Primary Status: DEP ER - ER Visit Summary Date of Service: 02/10/18 Chief Complaint: [] Back pain History of Present Illness: The patient is a 42 F complaining of back pain for the last 4 days gradual onset. No injury. It is in her right parathoracic region. It hurts to move and twist. She is also having some discomfort in her posterior neck. She thinks she might have slept wrong. No injury. No associated symptoms. She has chronic migraines and feels like this is triggering a migraine. No home treatment. Physical Examination: [] Vital signs reviewed General: Well-nourished well-developed Head: Normocephalic atraumatic Eyes: Pupils equal round and reactive to light extraocular movements intact ENT: TMs clear no hemotympanum no trauma Neck: Nontender full range of motion. Mild tender to palpation right posterior paracervical. Decreased range of motion secondary to pain. Cardiovascular: Regular rate rhythm no murmurs normal S1-S2 Respiratory: No distress clear to auscultation bilaterally chest nontender Abdomen: Soft nontender nondistended normal bowel sounds no masses Back: Mild tenderness palpation right mid thoracic paraspinal musculature without swelling or deformity. Mild decreased range of motion secondary to pain no CVA tenderness Extremities: Nontender active range of motion 4 extremities no trauma Skin: Normal color no trauma Neuro alert oriented cranial nerves II through XII intact normal strength sensation reflexes Test Results: [] Emergency Department Course and Treatment: [] Patient given injection of Toradol. She will follow-up and continue resting icing and anti-inflammatories. I do not feel she needs imaging. I do not feel she has an acute emergent cause. I feel this is musculoskeletal in nature. She can follow-up Treatment Plan: [] Disposition: [] Impression: [] Right posterior neck pain Right posterior midthoracic back pain This note was generated with PixelTalents dictation software. It may contain incorrect words, spelling, and punctuation that were not noted in review of the chart prior to signing ED Disposition - Plan for ED Patient: Chief Complaint: Back Referrals: Care Physician,No Primary [Primary Care Provider] - What to do if you have Problems For any increased pain, shortness of breath, bleeding, nausea or vomiting, chest pain, or any unexpected problems, contact your Primary Care Provider. Call [facility] ([phone]) or report to the closest Emergency Room. Call 911 if necessary. 02/10/18714 <Electronically signed by Mingo Askew MD> Date Mingo Askew MD Cosigner Signature (If Indicated): Date CC: No Primary Care Physician DISCHARGE INSTRUCTION Observed: 02/10/2018 Status: F Source: [place] 7:15 AM [facility] REPOSITORY [facility] Medical Records Department [address] [place] [address] Discharge Instruction 02/10/18225 MR#: [id number] Acct: [id number] Name: SARAH BRAVO Rep #: [id number] : 1975 42 From: Mingo Askew MD PCP: Care Physician, No Primary Status: DEP ER ED Disposition - Plan for ED Patient: Disposition: Home or Assisted Living Chief Complaint: Back Instructions: ED Neck Back Pain General Referrals: Care Physician,No Primary [Primary Care Provider] - Philip Batres MD [STAFF PHYSICIAN] - What to do if you have Problems For any increased pain, shortness of breath, bleeding, nausea or vomiting, chest pain, or any unexpected problems, contact your Primary Care Provider. Call [facility] ([phone]) or report to the closest Emergency Room. Call 911 if necessary. 02/10/18714 <Electronically signed by Mingo Askew MD> Date Mingo Askew MD Cosigner Signature (If Indicated): Date CC: No Primary Care Physician EMERGENCY DEPARTMENT Observed: 01/07/2018 Status: F Source: [place] SUMMARY 5:22 AM [facility] REPOSITORY [facility] Medical Records Department [address] [place] [address] Emergency Department Summary 01/07/18 0520 MR#: [id number] Acct: [id number] Name: SARAH BRAVO Rep #: [id number] : 1975 42 From: Fredis Delgado MD PCP: Care Physician, No Primary Status: REG ER - ER Visit Summary Date of Service: 01/07/18 Chief Complaint: Headache History of Present Illness: The patient is a 42 F who presents with a headache. She has extensive prior visits for headaches. Currently she can planes of intermittent headaches over the last 2 days which wax and wane. This is similar in location and character to prior migraines. She had one episode of nonbloody nonbilious emesis. She does not see her primary care physician. She states that she was put on a maintenance medication for migraines on one previous occasion but got sick after 2 weeks. She states that because of this people are not allowed to mess with my medications. Physical Examination: Afebrile vitals are normal Moist mucous membranes Heart regular rate and rhythm Lungs are clear Abdomen soft Alert and oriented with no focal or lateralizing neurological deficits Test Results: Not indicated Emergency Department Course and Treatment: Patient states she normally receives Toradol and Benadryl with improvement of symptoms. I discussed the plan to give her intramuscular Toradol and Benadryl as well as oral Zofran ODT. The patient states that she has to get Toradol and Benadryl IV in order for it to work. I explained that intramuscular medication should be just as efficacious and I do not believe that she needs IV Benadryl. After leaving the room the patient eloped from the emergency department. Treatment Plan: [] Disposition: Discharge Impression: Migraine This note was generated with Simfinitation software. It may contain incorrect words, spelling, and punctuation that were not noted in review of the chart prior to signing ED Disposition - Plan for ED Patient: Chief Complaint: Headache Referrals: Care Physician,No Primary [Primary Care Provider] - What to do if you have Problems For any increased pain, shortness of breath, bleeding, nausea or vomiting, chest pain, or any unexpected problems, contact your Primary Care Provider. Call [facility] ([phone]) or report to the closest Emergency Room. Call 911 if necessary. 01/07/18 0522 <Electronically signed by Fredis Delgado MD> Date Fredis Delgado MD Cosigner Signature (If Indicated): Date CC: No Primary Care Physician EMERGENCY DEPARTMENT Observed: 12/12/2017 Status: F Source: [place] SUMMARY 12:59 AM [facility] REPOSITORY [facility] Medical Records Department [address] [place] [address] Emergency Department Summary 12/12/17 0052 MR#: [id number] Acct: [id number] Name: SARAH BRAVO Rep #: [id number] : 1975 42 From: Eddy Hill DO PCP: Care Physician, No Primary Status: REG ER - ER Visit Summary Date of Service: 12/12/17 Chief Complaint: Headache History of Present Illness: The patient is a 42 F who presents with a headache that began today. Patient states that has been gradually getting worse throughout the day today. Patient states this is similar to prior migraine headaches. Patient states the pain is worse over the right side of her head. Patient admits to some nausea and vomiting. Patient denies any fevers or chills. Patient admits to some photophobia. Patient denies any paresthesias or weakness. Patient denies any neck pain. Physical Examination: Vital signs are stable. Patient is afebrile. Patient is in no acute distress. Oral mucosa is pink and moist. Neck is supple. There is no JVD. There is no meningismus noted. Heart was regular rate and rhythm. Lungs are clear and equal bilaterally. Cranial nerves II through XII are intact. There are no focal motor or sensory deficits noted. The remaining physical exam is within normal limits. Emergency Department Course and Treatment: Patient was given IV fluids, Toradol, Benadryl, and Reglan. Patient felt better on reevaluation. Patient was instructed to rest in a dark quiet room. Patient was instructed to follow-up with her primary care physician in 7-10 days. Patient understood and was agreeable with the plan. All questions were answered. Disposition: Discharged home Impression: Migraine headache This note was generated with PixelTalents dictation software. It may contain incorrect words, spelling, and punctuation that were not noted in review of the chart prior to signing ED Disposition - Plan for ED Patient: Disposition: Home or Assisted Living Chief Complaint: Headache Diagnosis: Migraines Instructions: ED Headache Migraine Referrals: Care Physician,No Primary [Primary Care Provider] - What to do if you have Problems For any increased pain, shortness of breath, bleeding, nausea or vomiting, chest pain, or any unexpected problems, contact your Primary Care Provider. Call [facility] ([phone]) or report to the closest Emergency Room. Call 911 if necessary. 12/12/17 0059 <Electronically signed by Eddy Hill DO> Date Eddy Hill DO Cosigner Signature (If Indicated): Date CC: No Primary Care Physician DISCHARGE INSTRUCTION Observed: 11/19/2017 Status: F Source: [place] 12:20 PM [facility] REPOSITORY [facility] Medical Records Department [address] [place] [address] Discharge Instruction 11/19/17 1219 MR#: [id number] Acct: [id number] Name: SARAH BRAVO Rep #: [id number] : 1975 42 From: Fredis Delgado MD PCP: Care Physician, No Primary Status: REG ER ED Disposition - Plan for ED Patient: Chief Complaint: Headache Instructions: ED Cephalgia Unspecified Referrals: Care Physician,No Primary [Primary Care Provider] - What to do if you have Problems For any increased pain, shortness of breath, bleeding, nausea or vomiting, chest pain, or any unexpected problems, contact your Primary Care Provider. Call [facility] ([phone]) or report to the closest Emergency Room. Call 911 if necessary. 11/19/17 1220 <Electronically signed by Fredis Delgado MD> Date Fredis Delgado MD Cosigner Signature (If Indicated): Date CC: No Primary Care Physician EMERGENCY DEPARTMENT Observed: 11/19/2017 Status: F Source: [place] SUMMARY 12:19 PM [facility] REPOSITORY [facility] Medical Records Department [address] [place] [address] Emergency Department Summary 11/19/17 1218 MR#: [id number] Acct: [id number] Name: SARAH BRAVO Rep #: [id number] : 1975 42 From: Fredis Delgado MD PCP: [place] Physician, No Primary Status: REG ER - ER Visit Summary Date of Service: 11/19/17 Chief Complaint: Headache History of Present Illness: The patient is a 42 F who presents with a headache. She has a history of frequent emergency department visits for the same. She states her current headache started yesterday and was gradual in onset it is typical in character and location to her previous headaches. She also developed nausea and vomiting this morning again this is typical of her headaches. She normally improves with Toradol and Benadryl. She denies fevers. No history of fall or head injury or trauma. Physical Examination: Afebrile vitals are normal Moist mucous membranes Pupils are equally round reactive to light Neck is supple with no meningismus Heart regular rate and rhythm Lungs clear Alert and oriented with no focal or lateralizing neurological deficits Test Results: Not indicated Emergency Department Course and Treatment: Patient was treated with IV fluids Toradol and Benadryl. She does report symptomatic improvement on reevaluation. She was discharged home in good condition. Treatment Plan: [] Disposition: Discharge Impression: Headache This note was generated with PixelTalents dictation software. It may contain incorrect words, spelling, and punctuation that were not noted in review of the chart prior to signing ED Disposition - Plan for ED Patient: Chief Complaint: Headache Referrals: Care Physician,No Primary [Primary Care Provider] - What to do if you have Problems For any increased pain, shortness of breath, bleeding, nausea or vomiting, chest pain, or any unexpected problems, contact your Primary Care Provider. Call [facility] ([phone]) or report to the closest Emergency Room. Call 911 if necessary. 11/19/17 1219 <Electronically signed by Fredis Delgado MD> Date Fredis Delgado MD Cosigner Signature (If Indicated): Date CC: No Primary Care Physician EMERGENCY DEPARTMENT Observed: 10/31/2017 Status: F Source: [place] SUMMARY 6:10 AM [facility] REPOSITORY [facility] Medical Records Department [address] [place] [address] Emergency Department Summary 10/31/17 0442 MR#: [id number] Acct: [id number] Name: SARAH BRAVO Rep #: [id number] : 1975 42 From: Chase Troy PCP: Care Physician, No Primary Status: REG ER - ER Visit Summary Date of Service: 10/31/17 Chief Complaint: Headache History of Present Illness: The patient is a 42 F intermittent right-sided headache over 2 days. No falls or head injuries. Phonophobia. Nausea. No vomiting. No fevers. Increased stress. Similar headaches in the past with migraines. Head CT in May of this year no acute intracranial process. Physical Examination: General: Alert and oriented 3, no acute distress HEENT: Normocephalic, atraumatic. Moist mucosa membranes Neck: supple, nontender. No meningismus Cardiovascular: Regular rate and rhythm, no murmurs Respiratory: Normal breath sounds, symmetric, no distress Abdomen: Soft, nontender, nondistended Extremities: Nontender, no edema, pulses intact 4 Neuro: no focal neurological deficits. Test Results: [] Emergency Department Course and Treatment: Patient no focal neurologic deficits. Discussed treatment options. She agrees with Toradol and Benadryl and fluids. She is adamant about not receiving Reglan stating I will not let them give it to me.. She would not explain why. Reevaluation, symptoms were improving. Patient discharged with outpatient follow-up. Treatment Plan: [] Disposition: Discharge Impression: Migraine headache This note was generated with PixelTalents dictation software. It may contain incorrect words, spelling, and punctuation that were not noted in review of the chart prior to signing ED Disposition - Plan for ED Patient: Disposition: Home or Assisted Living Chief Complaint: Headache Diagnosis: Migraines Instructions: ED Headache Migraine Referrals: Care Physician,No Primary [Primary Care Provider] - Purnima Prakash DO [STAFF PHYSICIAN] - 3-5 Days What to do if you have Problems For any increased pain, shortness of breath, bleeding, nausea or vomiting, chest pain, or any unexpected problems, contact your Primary Care Provider. Call [facility] ([phone]) or report to the closest Emergency Room. Call 911 if necessary. 10/31/17 0610 <Electronically signed by Chase Troy> Date Chase Troy Cosigner Signature (If Indicated): Date CC: No Primary Care Physician EMERGENCY DEPARTMENT Observed: 10/30/2017 Status: F Source: [place] SUMMARY 3:12 PM [facility] REPOSITORY [facility] Medical Records Department [address] [place] [address] Emergency Department Summary 10/30/17 1001 MR#: [id number] Acct: [id number] Name: SARAH BRAVO Rep #: [id number] : 1975 42 From: Ayesha Frye MD PCP: Care Physician, No Primary Status: REG ER - ER Visit Summary Date of Service: 10/30/17 Chief Complaint: [] Typical migraine headache History of Present Illness: The patient is a 42 F [] patient reports a long history of migraine headaches, has had an exacerbation for the last few days no nausea vomiting fever no URI symptoms no neck stiffness no chest pain abdominal pain numbness or paresthesias she dropped to the emergency department she came in and left the emergency department walking out. She indicates the headache is typical not different anyway she could she has had prior brain imaging that shows no signs of brain aneurysm tumor she was under the care of physicians but now she does not see a physician she reports even though she is given a physician via her care source insurance she takes Tylenol for her pain Physical Examination: [] She is in no distress lying flat her vital signs are within normal range head neck chest unremarkable very supple nose and throat unremarkable lungs clear heart tones normal abdomen soft nontender her neuro exam is unremarkable she is able stand and walk motor sensory gait cranial nerves are all normal Patient indicated that Toradol usually helps her headaches we prescribed Toradol IM Zofran p.o. she indicated she wanted the Toradol IV I explained her that there really is no indication for IV and I am was just as efficacious as IV, and she said basically that if I did not give her exactly what she wanted she would leave the emergency department I explained her we would follow the appropriate treatment protocols for her She will be treated as above and asked to follow-up with her assigned physician for further management and return for change in symptoms Test Results: [] Emergency Department Course and Treatment: [] Treatment Plan: [] Disposition: [] Home stable Impression: [] Acute recurrent migraine headache This note was generated with Simfinitation software. It may contain incorrect words, spelling, and punctuation that were not noted in review of the chart prior to signing ED Disposition - Plan for ED Patient: Chief Complaint: Headache Referrals: Care Physician,No Primary [Primary Care Provider] - What to do if you have Problems For any increased pain, shortness of breath, bleeding, nausea or vomiting, chest pain, or any unexpected problems, contact your Primary Care Provider. Call [facility] ([phone]) or report to the closest Emergency Room. Call 911 if necessary. 10/30/17 1512 <Electronically signed by Ayesha Frye MD> Date Ayesha Frye MD Cosigner Signature (If Indicated): Date CC: No Primary Care Physician DISCHARGE INSTRUCTION Observed: 10/30/2017 Status: F Source: [place] 10:03 AM [facility] REPOSITORY [facility] Medical Records Department [address] [facility] [place] [address] Discharge Instruction 10/30/17 1003 MR#: [id number] Acct: [id number] Name: SARAH BRAVO Rep #: [id number] : 1975 42 From: Ayesha Frye MD PCP: Care Physician, No Primary Status: PRE ER ED Disposition - Plan for ED Patient: Chief Complaint: Headache Instructions: ED Headache Migraine Referrals: Care Physician,No Primary [Primary Care Provider] - What to do if you have Problems For any increased pain, shortness of breath, bleeding, nausea or vomiting, chest pain, or any unexpected problems, contact your Primary Care Provider. Call [facility] ([phone]) or report to the closest Emergency Room. Call 911 if necessary. 10/30/17 1003 <Electronically signed by Ayesha Frye MD> Date Sharhabeel Jwayyed MD Cosigner Signature (If Indicated): Date CC: No Primary Care Physician EMERGENCY DEPARTMENT Observed: 10/28/2017 Status: F Source: [place] SUMMARY 12:16 AM [facility] REPOSITORY [facility] Medical Records Department [address] [place] [address] Emergency Department Summary 10/27/17 1848 MR#: [id number] Acct: [id number] Name: SARAH BRAVO Rep #: [id number] : 1975 42 From: Ayesha Frye MD PCP: Paulino Physician, No Primary Status: DEP ER - ER Visit Summary Date of Service: 10/27/17 Chief Complaint: [] The patient walked out of the emergency department, she indicated she change her mind did not wish to be seen, I went to see her as soon as she was placed in the bed when I walked in registration was trying to get in general demographic information from her such as address and phone number and she said she was leaving, she changed her mind, she simply got up and walked out of the emergency department, would not explain her decision, would not engage in further discussion of any kind Vital signs were within normal range she appeared no distress History of Present Illness: The patient is a 42 F [] Physical Examination: [] Test Results: [] Emergency Department Course and Treatment: [] Treatment Plan: [] Disposition: [] Impression: [] Walked out of the emergency department for evaluation could be done This note was generated with PixelTalents dictation software. It may contain incorrect words, spelling, and punctuation that were not noted in review of the chart prior to signing ED Disposition - Plan for ED Patient: Chief Complaint: Headache Referrals: Care Physician,No Primary [Primary Care Provider] - What to do if you have Problems For any increased pain, shortness of breath, bleeding, nausea or vomiting, chest pain, or any unexpected problems, contact your Primary Care Provider. Call [facility] ([phone]) or report to the closest Emergency Room. Call 911 if necessary. 10/28/17 0016 <Electronically signed by Ayesha Frye MD> Date Ayesha Frye MD Cosigner Signature (If Indicated): Date CC: No Primary Care Physician EMERGENCY DEPARTMENT Observed: 09/26/2017 Status: F Source: [place] SUMMARY 7:20 PM [facility] REPOSITORY [facility] Medical Records Department [address] [place] [address] Emergency Department Summary 09/26/17 1744 MR#: [id number] Acct: [id number] Name: SARAH BRAVO Rep #: [id number] : 1975 42 From: Katerine Osorio MD PCP: Care Physician, No Primary Status: PRE ER - ER Visit Summary Date of Service: 09/26/17 Chief Complaint: Headache History of Present Illness: The patient is a 42 F presenting with headache. She states she woke up with headache this morning and it has gradually worsened throughout the day. She has nausea with no vomiting. She denies fever. Denies trauma. She has history of migraines and this feels similar. Denies other complaints. She tried no medications at home prior to arrival. She states typically she is given Toradol and Benadryl and this improves her pain. Physical Examination: Vitals are stable. Patient is afebrile. Alert no acute distress. HEENT exam is unremarkable. Neck is supple. No meningismus Lungs are clear and equal bilaterally. Heart is regular rate and rhythm. Abdomen is soft nontender nondistended. Extremities are unremarkable. Skin is warm and dry. No focal neurologic deficit. Remainder of exam is unremarkable. Emergency Department Course and Treatment: Patient is given Toradol and Benadryl IV with improvement. On repeat evaluation, she is resting comfortably. She states her headache has improved. She is advised to follow-up with primary care physician. Advised return to ED if worsening complaints. Disposition: Discharge home Impression: Headache This note was generated with Simfinitation software. It may contain incorrect words, spelling, and punctuation that were not noted in review of the chart prior to signing ED Disposition - Plan for ED Patient: Chief Complaint: Headache Instructions: ED Cephalgia Unspecified Referrals: Care Physician,No Primary [Primary Care Provider] - What to do if you have Problems For any increased pain, shortness of breath, bleeding, nausea or vomiting, chest pain, or any unexpected problems, contact your Primary Care Provider. Call [facility] ([phone]) or report to the closest Emergency Room. Call 911 if necessary. 09/26/171919 <Electronically signed by Katerine Osorio MD> Date Katerine Osorio MD Cosigner Signature (If Indicated): Date CC: No Primary Care Physician DISCHARGE INSTRUCTION Observed: 09/26/2017 Status: F Source: [place] 7:18 PM [facility] REPOSITORY [facility] Medical Records Department [address] [place] [address] [place] [address] Discharge Instruction 09/26/171917 MR#: [id number] Acct: [id number] Name: SARAH BRAVO Rep #: [id number] : 1975 42 From: Katerine Osorio MD PCP: Care Physician, No Primary Status: PRE ER ED Disposition - Plan for ED Patient: Chief Complaint: Headache Instructions: ED Cephalgia Unspecified Referrals: Care Physician,No Primary [Primary Care Provider] - What to do if you have Problems For any increased pain, shortness of breath, bleeding, nausea or vomiting, chest pain, or any unexpected problems, contact your Primary Care Provider. Call [facility] ([phone]) or report to the closest Emergency Room. Call 911 if necessary. 09/26/171917 <Electronically signed by Katerine Osorio MD> Date Katerine Barnett Signature (If Indicated): Date CC: No Primary Care Physician EMERGENCY DEPARTMENT Observed: 09/23/2017 Status: F Source: [place] SUMMARY 2:30 AM [facility] REPOSITORY [facility] Medical Records Department [address] [place] [address] Emergency Department Summary 09/23/17 0142 MR#: [id number] Acct: [id number] Name: SARAH BRAVO Rep #: [id number] : 1975 42 From: Sally Zhang MD PCP: Care Physician, No Primary Status: REG ER History of Present Illness Chief Complaint: Headache Informant: Patient Onset: Hours - 9-10 Context: Gradual Onset Timing: Continuous Quality: pressure Location: entire head Current Severity: Severe Maximum Severity: Severe Worsened by: nothing Relieved by: nothing, but hasn't tried any medications Associated Symptoms: none -- no n/v, light sens, diplopia, blurry vision, focal neuro sx, fever Narrative: Patient has a history of migraines, she states she takes no medication for them but has come to the hospital before and Toradol has made them better. She took no medicines for this 1 yet today. She states she just tried to rest. This is similar feeling to prior migraines which are usually right retro-orbital, except this one is also everywhere. She states it started that way. No loss of consciousness, feelings of a thunderclap. No recent head injury or illnesses or new medications. - Past Medical History (1) Migraines Status: Chronic Past Medical History - Allergies and Home Meds Allergies/Adverse Reactions: Allergies hydromorphone HCl [From Dilaudid] Adverse Reaction (Verified 09/23/17 01:35) Other Primary Care Physician: Care Physician,No Primary [Primary Care Provider] - Smoking Status: Former smoker Drugs: None Review of Systems All systems negative except as indicated General: Denies: Chills, Fever Eyes: Denies: Visual changes - bilaterally Cardiovascular: Denies: Chest pain, Palpitations Respiratory: Denies: Dyspnea Gastrointestinal: Denies: Nausea, Vomiting Musculoskeletal: Denies: Neck pain - Or stiffness Neurological: Reports: Headache. Denies: Weakness, Parasthesia, Numbness Physical Exam Vital Signs/Narrative: Vital Signs 09/23/17 01:29 97.9 F 91 18 124/63 H 99 General: Well nourished, Well developed Head: Normocephalic, Atraumatic Eyes: Perrl, EOMI Neck: Supple, Nontender, No lymphadenopathy Extremities: Nontender, No edema Skin: Normal color, No rash Neurological: Alert, Oriented x3, Cranial nerves II-XII grossly intact, Normal Strength, Normal Sensation Psychological: Normal affect Diagnostic/Tx/Re-eval - Medical Decision Making Patient drove herself, and told me that Toradol helped in the past. I told her that I would be happy to order her an injection of Toradol, and we would see how that did, and if it did not help enough, we could talk about treatment with other medications. She was okay with that. I was later told by nursing that the patient left because she wanted an IV and not an injection. (In this EMR, it is not possible to indicate that the patient left after evaluation/eloped, but she was not technically discharged. She eloped.) ED Disposition - Plan for ED Patient: Disposition: Home or Assisted Living Chief Complaint: Headache Diagnosis: Migraine headache What to do if you have Problems For any increased pain, shortness of breath, bleeding, nausea or vomiting, chest pain, or any unexpected problems, contact your Primary Care Provider. Call [facility] ([phone]) or report to the closest Emergency Room. Call 911 if necessary. 09/23/17 0230 <Electronically signed by Sally Zhang MD> Date Sally Zhang MD Cosigner Signature (If Indicated): Date CC: No Primary Care Physician DISCHARGE INSTRUCTION Observed: 08/29/2017 Status: F Source: [place] 12:12 PM [facility] REPOSITORY [facility] Medical Records Department [address] [place] [address] Discharge Instruction 08/29/17 1210 MR#: [id number] Acct: [id number] Name: SARAH BRAVO Rep #: [id number] : 1975 42 From: Zachariah Porter DO PCP: Care Physician, No Primary Status: REG ER ED Disposition - Plan for ED Patient: Chief Complaint: Headache Instructions: ED Headache Migraine, ED UTI Cystitis Female Prescriptions: Smz/Tmp Ds [Bactrim Ds] 1 tab PO BID #10 tab Referrals: Care Physician,No Primary [Primary Care Provider] - Jose Obrien MD [NON-STAFF] - 3-5 Days What to do if you have Problems For any increased pain, shortness of breath, bleeding, nausea or vomiting, chest pain, or any unexpected problems, contact your Primary Care Provider. Call [facility] ([phone]) or report to the closest Emergency Room. Call 911 if necessary. 08/29/17 1212 <Electronically signed by Zachariah Porter DO> Date Zachariah Porter DO Cosigner Signature (If Indicated): Date CC: No Primary Care Physician EMERGENCY DEPARTMENT Observed: 08/29/2017 Status: F Source: [place] SUMMARY 12:10 PM [facility] REPOSITORY [facility] Medical Records Department [address] [address] Emergency Department Summary 08/29/17 1207 MR#: [id number] Acct: [id number] Name: SARAH BRAVO Rep #: [id number] : 1975 42 From: Zachariah Porter DO PCP: Care Physician, No Primary Status: REG ER - ER Visit Summary Date of Service: 08/29/17 Chief Complaint: [Headache and dysuria] History of Present Illness: The patient is a 42 F [presents the emergency department with complaint of headache that started this morning. Patient has a history of chronic migraines and this headache is similar to prior headaches she has had before. Patient describes the headache is more frontal. Throbbing. Describes it as moderate in severity. Patient does have nausea with it and some mild photophobia. Patient also states that for about the last week she has had dysuria and frequency. Patient planes of lower abdominal discomfort. Patient denies any fever. She has had increased stress of late.] Physical Examination: [HEENT-PERRLA, EOMI. Cranial nerves II through XII grossly intact. TMs clear. Mucous membranes moist. No adenopathy. Cardiovascular-regular rate and rhythm without murmur or ectopy Lungs-clear to auscultation, chest wall stable without crepitus or subcu emphysema Abdomen-normoactive bowel sounds, soft. Patient has tenderness over the lower abdomen diffusely. Neuro pxyf-qypfcn-wifk and heel smith testing within normal limits, negative Romberg, negative pronator drift, fundi benign Extremities-intact 4, normal range of motion, normal pulses, atraumatic] Test Results: [CBC with differential obtained showed a white blood cell count 7.7, hemoglobin 13, hematocrit 39. Chemistries unremarkable. Urinalysis was positive for nitrites, 50-100 WBCs, 500 leukocyte esterase, and +1 bacteria.] Emergency Department Course and Treatment: [Patient was given a liter normal same fluid bolus as well as treated with Phenergan and Toradol. Patient felt much improved. Patient was started on Bactrim p.o.] Treatment Plan: [Patient will be started on Bactrim.] Disposition: [Discharged home in stable condition. Patient advised to return if worsening abdominal pain, vomiting, dehydration, or condition should worsen in any way.] Impression: [UTI Migrainous cephalgia] This note was generated with PixelTalents dictation software. It may contain incorrect words, spelling, and punctuation that were not noted in review of the chart prior to signing ED Disposition - Plan for ED Patient: Chief Complaint: Headache Referrals: Care Physician,No Primary [Primary Care Provider] - What to do if you have Problems For any increased pain, shortness of breath, bleeding, nausea or vomiting, chest pain, or any unexpected problems, contact your Primary Care Provider. Call [facility] ([phone]) or report to the closest Emergency Room. Call 911 if necessary. 08/29/17 1210 <Electronically signed by Zachariah Porter DO> Date Zachariah Porter DO Cosigner Signature (If Indicated): Date CC: No Primary Care Physician URINALYSIS, COMPLETE Collected: 08/29/2017 Status: F Source: [place] 11:05 AM [facility] REPOSITORY Order Comment: How was Urine Obtained? CLEAN CATCH TYPE CODE TESTS RESULT OUT OF RANGE REFERENCE UNITS LAB L400.3000 Yellow COLOR Normal Yellow LAB L400.3050 Clear Normal CLARITY Cloudy LAB L400.3200 Normal mg/dl Normal GLUCOSE, UR Normal LAB L400.3300 Negative mg/dL High BILIRUBIN URINE 1 Result Comment: COLOR OF URINE MAY AFFECT DIPSTICK RESULTS. LAB L400.3400 Negative mg/dl High KETONE UR 150 Result Comment: CRITICAL VALUE *H CRITICAL VALUE VERIFIED. CALLED TO BYRON GRAY 08/29/17 1113 Saud Avelar. RESULTS READ BACK BY SAME. LAB L400.3465 1.002-1.030 Normal SP.GR. DIPSTX 1.015 LAB L400.3550 5.0 - 8.0 pH Normal UR 8.0 LAB L400.3600 Negative mg/dl High PROT DIPSTX 100 LAB L400.3700 Normal mg/dl High 4 UROBILI LAB L400.3750 Negative High NITRITE UR Positive LAB L400.3780 Negative /ul High OCCULT 150 BLOOD-UR LAB L400.3800 Negative /ul High LEUK ESTERASE 500 LAB L400.4050 0-5 /hpf Normal WBC 50-100 SEEN LAB L400.4100 0-5 /hpf Normal RBC-UA 10-25 SEEN LAB L400.4150 5-10 /hpf 0 Normal SQUAM EPI SEEN LAB L400.4300 None Seen /hpf 1+ Normal BACTERIA LAB L400.4350 <or=2+ /hpf 0 Normal MUCUS, URINE SEEN Performed By: #### L400.0001 #### [facility] [address] [place], [address] Observed: 08/29/2017 Status: F Source: [place] CULTURE, URINE 11:05 AM [facility] REPOSITORY Order Date: 08/29/17 Urine Culture ORGANISM 1: Presumptive E. coli Steele Count 11,000-25,000 Presumptive E. coli: REACTION Amoxacillin/Clavulanic Acid $ 4 S Ampicillin $ >=32 R Ampicillin/Sulbactam $ 16 I Cefazolin $ <=4 S Cefepime $ <=1 S Ceftriaxone $ <=1 S Ciprofloxacin $ <=0.25 S ESBL - Ertapenim $$$ <=0.5 S Gentamicin $ <=1 S Imipenem *NF <=0.25 S Levofloxacin $ <=0.12 S Nitrofurantoin $ <=16 S Piperacillin/Tazobactam $$ <=4 S Tobramycin $ <=1 S Trimethoprim/Sulfametho $ <=20 S (NF) indicates non-formulary drug at [facility]. Approval by Infectious Disease Specialist required before non-formulary drugs may be ordered and/or dispensed. Performed By: #### M100.0650 #### [facility] [address] [place], [place], [address] CBC W/DIFF, AUTOMATED Collected: 08/29/2017 Status: F Source: [place] 10:47 AM [facility] REPOSITORY TYPE CODE TESTS RESULT OUT OF RANGE REFERENCE UNITS LAB L100.1000 4.4-11.0 K/mm3 Normal WBC 7.7 LAB L100.1200 4.2-5.4 M/mm3 Low RBC 4.04 LAB L100.1300 12.0-15.0 g/dl Normal HGB 12.9 LAB L100.1400 37-47 % Normal HCT 39.0 LAB L100.1500 81-99 fL Normal MCV 96.5 LAB L100.1600 27.0-32.0 pg Normal MCH 31.9 LAB L100.1700 32-36 g/gl Normal MCHC 33.1 LAB L100.1810 11.6-14.6 % Normal RDW CV 12.2 LAB L100.1820 35.1-43.9 fl Normal RDW SD 41.8 LAB L100.1900 150-450 K/mm3 Normal PLT 253 LAB L100.2000 6.2-12.0 fl Normal MPV 9.8 LAB L100.2100 47-70 % High NEUT% 80.8 LAB L100.2200 19-41 % Low LY% 13.3 LAB L100.2300 0-10 % Normal MONO% 4.9 LAB L100.2400 0-5 % Normal EO% 0.8 LAB L100.2500 0-1 % Normal BASO% 0.1 LAB L100.2550 0.0-0.9 % Normal IM GRAN % 0.100 Result Comment: IG% - Immature Granulocytes (promyelocytes, myelocytes and metamyelocytes) > 1% indicates that a LEFT SHIFT is Present. LAB L100.2620 2.0-7.7 X10 3/uL Normal Absolute Neut 6.2 LAB L100.2720 0.83-4.51 X10 3/ul Normal Absolute Lymph 1.02 Performed By: #### L100.0100 #### [facility] [address] [place], [place], [address] BASIC METABOLIC Collected: 08/29/2017 Status: F Source: [place] PROFILE ([facility]) 10:47 AM [facility] REPOSITORY TYPE CODE TESTS RESULT OUT OF RANGE REFERENCE UNITS LAB L501.0100 74-106 mg/dL Normal GLU 89 Result Comment: Please note revised GLUCOSE reference range effective 2017. LAB L501.1000 7-18 mg/dL Normal BUN 9 LAB L501.1100 0.55-1.02 mg/dL Normal CREAT,SERUM 0.84 Result Comment: The validity of the calculated GFR AND GFRAA in patients over 70 years has not been determined. Clinical correlation is essential. LAB L501.1110 >60 mL/min Normal EST GFR 79 Result Comment: Non- GFR Calc LAB L501.1115 >60 mL/min Normal EST GFR - AA 96 Result Comment: GFR Calc LAB L501.1255 ml/min Normal Estimated CRCL 91.18 LAB L501.1300 10-20 RATIO Normal BUN/CRE 10.7 LAB L501.2200 8.5-10 mg/dL Normal .1 CA 8.8 LAB L501.5300 136-14 mmol/L Normal 5 NA 144 LAB L501.5600 3.5-5. mmol/L Normal 1 K 3.5 LAB L501.5900 98-107 mmol/L High CL 110 LAB L501.6100 21.0-3 mmol/L Normal 2.0 CO2 27.0 LAB L501.6200 5-15 Normal GAP 7 Performed By: #### L500.2500 #### [facility] [address] [facility] [place], [place], [address] ,SERUM,HCG QUALI. Collected: Status: F Source: [place] 08/29/2017 10:47 AM [facility] REPOSITORY TYPE CODE TESTS RESULT OUT OF REFERENCE UNITS RANGE LAB L700.7000 0-9 Nonpreg Negative Normal HCGSQUAL NEGATIVE LAB L700.6700 =>Qualitative mIU/mL Normal HCG Qual < 1 triggr Performed By: #### L700.6800 #### [facility] [address] [facility] [place], [address] EMERGENCY DEPARTMENT Observed: 07/28/2017 Status: F Source: [place] SUMMARY 6:03 AM [facility] REPOSITORY [facility] Medical Records Department [address] [place] [address] [place] [address] Emergency Department Summary 07/28/17 0519 MR#: [id number] Acct: [id number] Name: SARAH BRAVO Rep #: [id number] : 1975 42 From: Rima Pierce PCP: Care Physician, No Primary Status: REG ER - ER Visit Summary Date of Service: 07/28/17 Chief Complaint: [Headache] History of Present Illness: The patient is a 42 F [who presents the emergency department headache. It started 2 days ago. In the right side of her head and right oriental orthodox. No vision changes. She describes nausea and vomiting. She was seen here twice yesterday. She did receive prescription Toradol and that helps with the headache but then she started vomiting this evening. No fevers or chills. This is similar to previous headaches she has had in the past. No balance disturbances numbness tingling or weakness. She has a history of smoking. She has had multiple CAT scans in the past. She has never followed up does not have a primary care doctor or neurologist.] Physical Examination: [] WN WD NAD No tenderness over the right oriental orthodox PERRL EOMI MMM NECK supple and nontender, no masses RRR no murmur rub or gallop, no peripheral edema, symmetric radial pulses CTAB no respiratory distress ABDOMEN is soft and nontender, normal bowel sounds, no distension, no rebound or guarding SKIN is warm and dry no rashes Alert and Oriented x3, CN II-XII in tact, no motor or sensory deficits, gait normal No lymphadenopathy Test Results: [] Emergency Department Course and Treatment: [Patient was given benadryl decadron and reglan. She was ordered fluids. labs were ordered. after receiving medications patient eloped from the emergency department without notifying staff. ] Treatment Plan: [] Disposition: [eloped] Impression: [recurrent headache] This note was generated with PixelTalents dictation software. It may contain incorrect words, spelling, and punctuation that were not noted in review of the chart prior to signing ED Disposition - Plan for ED Patient: Chief Complaint: Headache Referrals: Care Physician,No Primary [Primary Care Provider] - What to do if you have Problems For any increased pain, shortness of breath, bleeding, nausea or vomiting, chest pain, or any unexpected problems, contact your Primary Care Provider. Call [facility] ([phone]) or report to the closest Emergency Room. Call 911 if necessary. 07/28/17 0603 <Electronically signed by Rima Pierce > Date Rima Pierce Cosigner Signature (If Indicated): Date CC: No Primary Care Physician CBC W/DIFF, AUTOMATED Collected: 07/28/2017 Status: F Source: [place] 5:25 AM [facility] REPOSITORY TYPE CODE TESTS RESULT OUT OF RANGE REFERENCE UNITS LAB L100.1000 4.4-11.0 K/mm3 Normal WBC 5.2 LAB L100.1200 4.2-5.4 M/mm3 Low RBC 3.88 LAB L100.1300 12.0-15.0 g/dl Normal HGB 12.5 LAB L100.1400 37-47 % Normal HCT 38.1 LAB L100.1500 81-99 fL Normal MCV 98.2 LAB L100.1600 27.0-32.0 pg High MCH 32.2 LAB L100.1700 32-36 g/gl Normal MCHC 32.8 LAB L100.1810 11.6-14.6 % Normal RDW CV 12.5 LAB L100.1820 35.1-43.9 fl High RDW SD 44.3 LAB L100.1900 150-450 K/mm3 Normal PLT 217 LAB L100.2000 6.2-12.0 fl Normal MPV 10.2 LAB L100.2100 47-70 % Normal NEUT% 68.6 LAB L100.2200 19-41 % Normal LY% 21.9 LAB L100.2300 0-10 % Normal MONO% 7.6 LAB L100.2400 0-5 % Normal EO% 1.7 LAB L100.2500 0-1 % Normal BASO% 0.2 LAB L100.2550 0.0-0.9 % Normal IM GRAN % 0.000 Result Comment: IG% - Immature Granulocytes (promyelocytes, myelocytes and metamyelocytes) > 1% indicates that a LEFT SHIFT is Present. LAB L100.2620 2.0-7.7 X10 3/uL Normal Absolute Neut 3.5 LAB L100.2720 0.83-4.51 X10 3/ul Normal Absolute Lymph 1.13 Performed By: #### L100.0100, L101.9900 #### [facility] [address] [place], [address] ERYTHROCYTE SED RATE Collected: 07/28/2017 Status: F Source: [place] 5:25 AM [facility] REPOSITORY TYPE CODE TESTS RESULT OUT OF RANGE REFERENCE UNITS LAB L102.0000 0-20 mm/hr Normal SED RATE 3 Performed By: #### L100.0100, L101.9900 #### [facility] [address] [place], [address] BASIC METABOLIC Collected: 07/28/2017 Status: F Source: [place] PROFILE (BMP) 5:25 AM [facility] REPOSITORY TYPE CODE TESTS RESULT OUT OF RANGE REFERENCE UNITS LAB L501.0100 74-106 mg/dL Normal GLU 90 Result Comment: Please note revised GLUCOSE reference range effective 2017. LAB L501.1000 7-18 mg/dL Normal BUN 13 LAB L501.1100 0.55-1.02 mg/dL Normal CREAT,SERUM 0.66 Result Comment: The validity of the calculated GFR AND GFRAA in patients over 70 years has not been determined. Clinical correlation is essential. LAB L501.1110 >60 mL/min Normal EST GFR 103 Result Comment: Non- GFR Calc LAB L501.1115 >60 mL/min Normal EST GFR - AA 125 Result Comment: GFR Calc LAB L501.1255 ml/min Normal Estimated CRCL 116.05 LAB L501.1300 10-20 RATIO BUN/CRE Normal 19.5 LAB L501.2200 8.5-10 mg/dL Low .1 CA 8.0 LAB L501.5300 136-14 mmol/L High 5 NA 146 LAB L501.5600 3.5-5. mmol/L Low 1 K 3.2 LAB L501.5900 98-107 mmol/L High CL 113 LAB L501.6100 21.0-3 mmol/L 2.0 CO2 Normal 22.0 LAB L501.6200 5-15 GAP Normal 11 Performed By: #### L500.2500 #### [facility] [address] [place], [address] EMERGENCY DEPARTMENT Observed: 07/27/2017 Status: F Source: [place] SUMMARY 3:21 PM [facility] REPOSITORY [facility] Medical Records Department [address] [place] [address] Emergency Department Summary 07/27/17 1514 MR#: [id number] Acct: [id number] Name: LAWRENCESARAH Sofia Don Rep #: [id number] : 1975 42 From: Zachariah Porter DO PCP: Care Physician, No Primary Status: REG ER - ER Visit Summary Date of Service: 07/27/17 Chief Complaint: [Headache] History of Present Illness: The patient is a 42 F [presents the emergency department with a headache that started yesterday. Patient rates her headache a 9 out of 10. Patient describes a headache is right-sided and similar to the prior headaches she has had. Patient describes some mild photophobia and some nausea but no vomiting. Patient states that she has had headaches off and on since 2007. Patient denies any recent falls or head injuries. Patient denies recent illness. Patient states Toradol usually works for her.] Physical Examination: [HEENT-PERRLA, EOMI. Cranial nerves II through XII grossly intact. TMs clear. Mucous membranes moist. No adenopathy. Cardiovascular-regular rate and rhythm without murmur or ectopy Lungs-clear to auscultation, chest wall stable without crepitus or subcu emphysema Abdomen-normoactive bowel sounds, soft, nontender, no rebound or rigidity, no peritoneal signs. Neuro emmt-lbskvb-dpxe and heel smith testing within normal limits, negative Romberg, negative pronator drift, fundi benign Extremities-intact 4, normal range of motion, normal pulses, atraumatic] Test Results: None indicated Emergency Department Course and Treatment: [Patient had an IV line established and was given a liter normal same fluid bolus as well as Reglan, Benadryl, and Toradol. Headache improved with 5 out of 10 and continuing to improve.] Treatment Plan: [Patient will be discharged home with referral to neurology for follow-up]. Patient had CT scan imaging of her brain and May 2017 therefore I do not feel any imaging is indicated in this headache is typical of prior headaches. Disposition: [Discharged to home in stable condition.] Impression: [Migrainous cephalgia] This note was generated with PixelTalents dictation software. It may contain incorrect words, spelling, and punctuation that were not noted in review of the chart prior to signing ED Disposition - Plan for ED Patient: Chief Complaint: Headache Referrals: Care Physician,No Primary [Primary Care Provider] - What to do if you have Problems For any increased pain, shortness of breath, bleeding, nausea or vomiting, chest pain, or any unexpected problems, contact your Primary Care Provider. Call [facility] ([phone]) or report to the closest Emergency Room. Call 911 if necessary. 07/27/171520 <Electronically signed by Zachariah Porter DO> Date Caraus Cordovakeegan DO Cosigner Signature (If Indicated): Date CC: No Primary Care Physician DISCHARGE INSTRUCTION Observed: 07/27/2017 Status: F Source: [place] 3:21 PM [facility] REPOSITORY [facility] Medical Records Department [address] [place] [address] Discharge Instruction 07/27/171520 MR#: [id number] Acct: [id number] Name: SARAH BRAVO Rep #: [id number] : 1975 42 From: Zachariah Porter DO PCP: Care Physician, No Primary Status: REG ER ED Disposition - Plan for ED Patient: Chief Complaint: Headache Instructions: ED Headache Migraine Referrals: Care Physician,No Primary [Primary Care Provider] - Jesus Barrientos MD [STAFF PHYSICIAN] - 5-7 Days What to do if you have Problems For any increased pain, shortness of breath, bleeding, nausea or vomiting, chest pain, or any unexpected problems, contact your Primary Care Provider. Call [facility] ([phone]) or report to the closest Emergency Room. Call 911 if necessary. 07/27/171520 <Electronically signed by Zachariah Porter DO> Date Caraus Cordovakeegan DO Cosigner Signature (If Indicated): Date CC: No Primary Care Physician EMERGENCY DEPARTMENT Observed: 07/27/2017 Status: F Source: [place] SUMMARY 2:21 AM [facility] REPOSITORY [facility] Medical Records Department [address] [place] [address] Emergency Department Summary 07/27/17 0218 MR#: [id number] Acct: [id number] Name: SARAH BRAVO Rep #: [id number] : 1975 42 From: Fredis Delgado MD PCP: Care Physician, No Primary Status: REG ER - ER Visit Summary Date of Service: 07/27/17 Chief Complaint: Headache History of Present Illness: The patient is a 42 F who presents with a headache. She has a history of multiple prior ER visits for headache. She states that this is similar to prior headaches but actually less severe than usual. She reports nausea. She denies any vomiting. She denies any head injury. No recent illness. No fevers vomiting or diarrhea. Physical Examination: Afebrile vitals are unremarkable Moist mucous membranes Extraocular motion intact Heart is regular rate per vitals She is in no respiratory distress The patient is alert she answers all questions appropriately she is moving all 4 extremities and does not appear to have any focal or lateralizing neurological deficits patient refused physical exam and physical exam is from observation Test Results: Not indicated Emergency Department Course and Treatment: I attempted to explain to the patient why physical exam is still important. My clinical suspicion for serious life-threatening pathology is low given that she has a history of prior similar headaches and multiple prior presentations for similar headaches. Patient is refusing to speak to me any further answer any questions or allow physical exam. Patient does not appear to have any life or limb threatening pathology. She was discharged. Treatment Plan: [] Disposition: Discharge Impression: Headache, recurrent This note was generated with PixelTalents dictation software. It may contain incorrect words, spelling, and punctuation that were not noted in review of the chart prior to signing ED Disposition - Plan for ED Patient: Chief Complaint: Headache Referrals: Care Physician,No Primary [Primary Care Provider] - What to do if you have Problems For any increased pain, shortness of breath, bleeding, nausea or vomiting, chest pain, or any unexpected problems, contact your Primary Care Provider. Call [facility] ([phone]) or report to the closest Emergency Room. Call 911 if necessary. 07/27/17220 <Electronically signed by Fredis Delgado MD> Date Fredis Delgado MD Cosigner Signature (If Indicated): Date CC: No Primary Care Physician DISCHARGE INSTRUCTION Observed: 07/27/2017 Status: F Source: [place] 2:21 AM [facility] REPOSITORY [facility] Medical Records Department [address] [place] [address] Discharge Instruction 07/27/17220 MR#: [id number] Acct: [id number] Name: LAWRENCESARAH Sofia Rep #: [id number] : 1975 42 From: Fredis Delgado MD PCP: Care Physician, No Primary Status: REG ER ED Disposition - Plan for ED Patient: Chief Complaint: Headache Instructions: ED Cephalgia Unspecified Referrals: Care Physician,No Primary [Primary Care Provider] - What to do if you have Problems For any increased pain, shortness of breath, bleeding, nausea or vomiting, chest pain, or any unexpected problems, contact your Primary Care Provider. Call [facility] ([phone]) or report to the closest Emergency Room. Call 911 if necessary. 07/27/17220 <Electronically signed by Fredis Delgado MD> Date Fredis Delgado MD Cosigner Signature (If Indicated): Date CC: No Primary Care Physician EMERGENCY DEPARTMENT Observed: 07/11/2017 Status: F Source: [place] SUMMARY 3:36 AM [facility] REPOSITORY [facility] Medical Records Department [address] [place] [address] Emergency Department Summary 07/10/17 0625 MR#: [id number] Acct: [id number] Name: SARAH BRAVO Rep #: [id number] : 1975 42 From: Charli Morton MD PCP: Care Physician, No Primary Status: DEP ER - ER Visit Summary Date of Service: 07/10/17 Chief Complaint: Right-sided headache History of Present Illness: The patient is a [address] migraine headaches. States at 330 this morning woke up with right-sided headache. Call for migraines. She denies any fever. Denies any trauma. Denies any sinus congestion. She is on no blood thinners. Denies any neurological symptoms. No trouble walking or with her vision or speech. She has nausea no vomiting. She has had multiple headaches like this before. She has had a recent CAT scan one several years ago both of which were negative. She has no family history of intracranial bleeds and currently is on no blood thinners. Physical Examination: Middle-aged female complaining of a headache otherwise no acute distress. Vital signs are stable afebrile. HEENT exam unremarkable. Pupils round reactive light. Extra motions are intact. No facial droop. No sinus tenderness. No signs of trauma to her face or scalp. Neck nontender no lymphadenopathy no meningismus. Able to touch chin to chest. Lungs clear to auscultation bilaterally. Heart regular rate and rhythm no murmur. Abdomen soft nontender. Normal bowel sounds no peritoneal signs. She is moving all 4 extremities. Neurovascular intact. She has 5 out of 5 product safety consultant strength bilaterally. Dorsi plantar flexion intact. No ataxia. Neurologically she is awake and alert with no focal motor or sensory deficits. NIH is 0. Back exam normal. Test Results: None Emergency Department Course and Treatment: Patient treated with 1 L normal saline, IV Toradol, IV Benadryl and IV Phenergan. Treatment Plan: Repeat exam patient is doing much better will be discharged home. Disposition: Discharge Impression: Acute cephalgia with a history of migraines This note was generated with PixelTalents dictation software. It may contain incorrect words, spelling, and punctuation that were not noted in review of the chart prior to signing ED Disposition - Plan for ED Patient: Chief Complaint: Headache Referrals: Care Physician,No Primary [Primary Care Provider] - What to do if you have Problems For any increased pain, shortness of breath, bleeding, nausea or vomiting, chest pain, or any unexpected problems, contact your Primary Care Provider. Call [facility] ([phone]) or report to the closest Emergency Room. Call 911 if necessary. 07/11/17335 <Electronically signed by Charli Morton MD> Date Charli Morton MD Cosigner Signature (If Indicated): Date CC: No Primary Care Physician DISCHARGE INSTRUCTION Observed: 07/11/2017 Status: F Source: [place] 3:36 AM [facility] REPOSITORY [facility] Medical Records Department [address] [place] [address] Discharge Instruction 07/10/17 0627 MR#: [id number] Acct: [id number] Name: SARAH BRAVO Rep #: [id number] : 1975 42 From: Charli Morton MD PCP: Care Physician, No Primary Status: DEP ER ED Disposition - Plan for ED Patient: Disposition: Home or Assisted Living Chief Complaint: Headache Instructions: ED Headache Migraine Referrals: Rodney Spicer MD [STAFF PHYSICIAN] - As Needed Additional Instructions: Any of fluids and rest. Toradol as needed. Return if feeling worse. What to do if you have Problems For any increased pain, shortness of breath, bleeding, nausea or vomiting, chest pain, or any unexpected problems, contact your Primary Care Provider. Call [facility] ([phone]) or report to the closest Emergency Room. Call 911 if necessary. 07/11/17335 <Electronically signed by Charli Morton MD> Date Charli Morton MD Cosigner Signature (If Indicated): Date CC: No Primary Care Physician DISCHARGE INSTRUCTION Observed: 07/09/2017 Status: F Source: [place] 2:51 PM [facility] REPOSITORY [facility] Medical Records Department [address] [place] [address] Discharge Instruction 07/09/17 145 MR#: [id number] Acct: [id number] Name: SARAH BRAVO Rep #: [id number] : 1975 42 From: Katerine Osorio MD PCP: Care Physician, No Primary Status: REG ER ED Disposition - Plan for ED Patient: Chief Complaint: Headache Instructions: ED Headache Migraine Referrals: Care Physician,No Primary [Primary Care Provider] - Taylor Menon DO [STAFF PHYSICIAN] - What to do if you have Problems For any increased pain, shortness of breath, bleeding, nausea or vomiting, chest pain, or any unexpected problems, contact your Primary Care Provider. Call [facility] ([phone]) or report to the closest Emergency Room. Call 911 if necessary. 07/09/171450 <Electronically signed by Katerine Osorio MD> Date Katerine Barnett Signature (If Indicated): Date CC: No Primary Care Physician EMERGENCY DEPARTMENT Observed: 07/09/2017 Status: F Source: [place] SUMMARY 2:50 PM [facility] REPOSITORY [facility] Medical Records Department [address] [place] [address] Emergency Department Summary 07/09/17 1344 MR#: [id number] Acct: [id number] Name: SARAH BRAVO Rep #: [id number] : 1975 42 From: Katerine Osorio MD PCP: Care Physician, No Primary Status: REG ER - ER Visit Summary Date of Service: 07/09/17 Chief Complaint: Headache History of Present Illness: The patient is a 42 F presenting with headache. This started yesterday. It was gradual in onset. Similar to previous migraines. Patient has light sensitivity. She has had nausea with no vomiting. She denies fever. Denies trauma. Denies other complaints. She states she tried Toradol at home with minimal relief. Physical Examination: Vitals are stable. Patient is afebrile. Alert no acute distress. HEENT exam is unremarkable. Neck is supple. No meningismus Lungs are clear and equal bilaterally. Heart is regular rate and rhythm. Abdomen is soft nontender nondistended. Extremities are unremarkable. Skin is warm and dry. No focal neurologic deficit. Remainder of exam is unremarkable. Emergency Department Course and Treatment: Compazine, Benadryl, Toradol were ordered. Patient declines Compazine. On reevaluation she is resting comfortably. She is advised to follow-up with her primary care physician. Advised return to ED for worsening complaints. Disposition: Discharge home Impression: Headache This note was generated with PixelTalents dictation software. It may contain incorrect words, spelling, and punctuation that were not noted in review of the chart prior to signing ED Disposition - Plan for ED Patient: Chief Complaint: Headache Referrals: Care Physician,No Primary [Primary Care Provider] - What to do if you have Problems For any increased pain, shortness of breath, bleeding, nausea or vomiting, chest pain, or any unexpected problems, contact your Primary Care Provider. Call [facility] ([phone]) or report to the closest Emergency Room. Call 911 if necessary. 07/09/17 1450 <Electronically signed by Katerine Osorio MD> Date Katerine Osorio MD Cosigner Signature (If Indicated): Date CC: No Primary Care Physician EMERGENCY DEPARTMENT Observed: 06/23/2017 Status: F Source: [place] SUMMARY 8:00 AM [facility] REPOSITORY [facility] Medical Records Department [address] [place] [address] Emergency Department Summary 06/17/17 1616 MR#: [id number] Acct: [id number] Name: SARAH BRAVO Rep #: [id number] : 1975 41 From: Jose Shell DO PCP: Care Physician, No Primary Status: DEP ER - ER Visit Summary Date of Service: 06/17/17 Chief Complaint: Headache History of Present Illness: The patient is a 41 F who states that she has a history of migraines. She states that she believes yesterday may be the night before she developed a right-sided headache. She describes it as retro-orbital and sharp and stabbing. He states that this is a typical headache for her. She was seen in the emergency department this morning given Toradol which she states did not help and she went home and went to bed and her headache got worse. She states that she typically takes Toradol for headaches and that helps. No fevers. She notes some nausea. Some mild light sensitivity. She denies any neurologic deficits or weakness. She denies any visual changes. No watering of the eye. No rashes. Physical Examination: Afebrile vital signs are stable Gen: Well-nourished well-developed Head: Normocephalic atraumatic no temporal artery tenderness Eyes: Perrl EOMI no conjunctival injection ENT: TMs clear no rhinorrhea moist mucous membranes Neck: Supple no lymphadenopathy no JVD nontender CVS: Regular rate rhythm no murmurs normal S1-S2 Respiratory: No distress clear to auscultation bilaterally chest nontender Abdomen: Soft nontender nondistended normal bowel sounds no masses Back: Nontender Extremity: Nontender no edema Skin: Normal color no rash Neuro: alert orientated 3 CN II-XII intact normal strength sensation reflexes gait cerebellar Psych: Normal affect normal mood Emergency Department Course and Treatment: The patient's last 3 prior ED visits were reviewed. Patient had medications ordered. When nursing went to start the IV she refused the IV and left the emergency department. Impression: 1. Headache 2. ED elopement This note was generated with [employer]Talents dictation software. It may contain incorrect words, spelling, and punctuation that were not noted in review of the chart prior to signing ED Disposition - Plan for ED Patient: Chief Complaint: Headache Referrals: Care Physician,No Primary [Primary Care Provider] - What to do if you have Problems For any increased pain, shortness of breath, bleeding, nausea or vomiting, chest pain, or any unexpected problems, contact your Primary Care Provider. Call [facility] ([phone]) or report to the closest Emergency Room. Call 911 if necessary. 06/23/17 0800 <Electronically signed by Jose Shell DO> Date Jose Shell DO Cosigner Signature (If Indicated): Date CC: No Primary Care Physician EMERGENCY DEPARTMENT Observed: 06/21/2017 Status: F Source: [place] SUMMARY 9:48 AM [facility] REPOSITORY [facility] Medical Records Department [address] [facility] [place] [address] Emergency Department Summary 06/21/17 0722 MR#: [id number] Acct: [id number] Name: SARAH BRAVO Rep #: [id number] : 1975 41 From: Katerine Osorio MD PCP: Care Physician, No Primary Status: REG ER - ER Visit Summary Date of Service: 06/21/17 Chief Complaint: Headache History of Present Illness: The patient is a 41 F presenting with headache. She states this feels like her previous tension headaches. Pain is on the left side of her head and started gradually yesterday. She has been taking uxtu-abu-uitcfwm headache medication with some relief. She denies recent fever. Denies vomiting but complains of nausea. No numbness or weakness. No other complaints. No recent trauma Physical Examination: Vitals are stable. Patient is afebrile. Alert no acute distress. HEENT exam is unremarkable. Neck is supple. No meningismus Lungs are clear and equal bilaterally. Heart is regular rate and rhythm. Abdomen is soft nontender nondistended. Extremities are unremarkable. Skin is warm and dry. No focal neurologic deficit. Remainder of exam is unremarkable. Emergency Department Course and Treatment: Patient given Compazine, Benadryl IV. She continues to have pain and was given Toradol. She has improvement after Toradol. She is resting comfortably. Advised to follow-up with Dr. Batres operations research director for no doc. Advised return to ED for worsening complaints. Disposition: Discharged home Impression: Headache This note was generated with PixelTalents dictation software. It may contain incorrect words, spelling, and punctuation that were not noted in review of the chart prior to signing ED Disposition - Plan for ED Patient: Chief Complaint: Headache Referrals: Care Physician,No Primary [Primary Care Provider] - What to do if you have Problems For any increased pain, shortness of breath, bleeding, nausea or vomiting, chest pain, or any unexpected problems, contact your Primary Care Provider. Call [facility] ([phone]) or report to the closest Emergency Room. Call 911 if necessary. 06/21/17947 <Electronically signed by Katerine Osorio MD> Date Katerine Osorio MD Cosigner Signature (If Indicated): Date CC: No Primary Care Physician DISCHARGE INSTRUCTION Observed: 06/21/2017 Status: F Source: [place] 9:48 AM [facility] REPOSITORY [facility] Medical Records Department [address] [place] [address] Discharge Instruction 06/21/17947 MR#: [id number] Acct: [id number] Name: SARAH BRAVO Rep #: [id number] : 1975 41 From: Katerine Osorio MD PCP: Paulino Physician, No Primary Status: REG ER ED Disposition - Plan for ED Patient: Chief Complaint: Headache Instructions: ED Headache Tension Referrals: Care Physician,No Primary [Primary Care Provider] - Philip Batres MD [STAFF PHYSICIAN] - What to do if you have Problems For any increased pain, shortness of breath, bleeding, nausea or vomiting, chest pain, or any unexpected problems, contact your Primary Care Provider. Call [facility] ([phone]) or report to the closest Emergency Room. Call 911 if necessary. 06/21/17 0948 <Electronically signed by Katerine Osorio MD> Date Katerine Osorio MD Cosigner Signature (If Indicated): Date CC: No Primary Care Physician EMERGENCY DEPARTMENT Observed: 06/18/2017 Status: F Source: [place] SUMMARY 6:38 AM [facility] REPOSITORY [facility] Medical Records Department [address] [place] [address] Emergency Department Summary 06/18/17 0446 MR#: [id number] Acct: [id number] Name: SARAH BRAVO Rep #: [id number] : 1975 41 From: Mingo Askew MD PCP: Care Physician, No Primary Status: DEP ER - ER Visit Summary Date of Service: 06/18/17 Chief Complaint: [] Migraine headache History of Present Illness: The patient is a 41 F complaining of a migraine headache for the last 2 days gradual onset continuous similar headaches in the past. Throbbing right-sided. Negative CT head recently. Associated nausea and photophobia. No home treatment since her last visit here yesterday when she received Toradol. She has had multiple visits for migraines this year. Physical Examination: Vital signs reviewed General: Well-nourished well-developed Head: Normocephalic atraumatic Eyes: Pupils equal round and reactive to light extraocular movements intact ENT: TMs clear no hemotympanum no trauma Neck: Nontender full range of motion Cardiovascular: Regular rate rhythm no murmurs normal S1-S2 Respiratory: No distress clear to auscultation bilaterally chest nontender Abdomen: Soft nontender nondistended normal bowel sounds no masses Back: Nontender no CVA tenderness Extremities: Nontender active range of motion 4 extremities no trauma Skin: Normal color no trauma Neuro alert oriented cranial nerves II through XII intact normal strength sensation reflexes Test Results: [] Emergency Department Course and Treatment: [] Patient given IV fluids Toradol and Benadryl at her request. As Phenergan or Compazine. Treatment Plan: [] Disposition: [] Impression: [] Migraine headache This note was generated with Simfinitation software. It may contain incorrect words, spelling, and punctuation that were not noted in review of the chart prior to signing ED Disposition - Plan for ED Patient: Chief Complaint: Headache Referrals: Care Physician,No Primary [Primary Care Provider] - What to do if you have Problems For any increased pain, shortness of breath, bleeding, nausea or vomiting, chest pain, or any unexpected problems, contact your Primary Care Provider. Call [facility] ([phone]) or report to the closest Emergency Room. Call 911 if necessary. 06/18/17 0638 <Electronically signed by Mingo Askew MD> Date Mingo Askew MD Cosigner Signature (If Indicated): Date CC: No Primary Care Physician DISCHARGE INSTRUCTION Observed: 06/18/2017 Status: F Source: [place] 6:38 AM [facility] REPOSITORY [facility] Medical Records Department [address] [place], [place] [address] [address] Discharge Instruction 06/18/17 0447 MR#: [id number] Acct: [id number] Name: SARAH BRAVO Rep #: [id number] : 1975 41 From: Mingo Askew MD PCP: Care Physician, No Primary Status: DEP ER ED Disposition - Plan for ED Patient: Disposition: Home or Assisted Living Chief Complaint: Headache Instructions: ED Headache Migraine Referrals: Care Physician,No Primary [Primary Care Provider] - Contreras Allan DO [NON CLINICAL AFFILIATE] - What to do if you have Problems For any increased pain, shortness of breath, bleeding, nausea or vomiting, chest pain, or any unexpected problems, contact your Primary Care Provider. Call [facility] ([phone]) or report to the closest Emergency Room. Call 911 if necessary. 06/18/17 0638 <Electronically signed by Mingo Askew MD> Date Mingo Askew MD Cosigner Signature (If Indicated): Date CC: No Primary Care Physician EMERGENCY DEPARTMENT Observed: 06/17/2017 Status: F Source: [place] SUMMARY 8:13 AM [facility] REPOSITORY [facility] Medical Records Department [address] [place] [address] Emergency Department Summary 06/17/17 08 MR#: [id number] Acct: [id number] Name: SARAH BRAVO Rep #: [id number] : 1975 41 From: Neil Good MD PCP: Care Physician, No Primary Status: REG ER - ER Visit Summary Date of Service: 06/17/17 Chief Complaint: [] History of Present Illness: The patient is a 41 F [] Physical Examination: [] Test Results: [] Emergency Department Course and Treatment: [] Treatment Plan: [] Disposition: [] Impression: [] This note was generated with Simfinitation software. It may contain incorrect words, spelling, and punctuation that were not noted in review of the chart prior to signing ED Disposition - Plan for ED Patient: Chief Complaint: Headache Instructions: ED Cephalgia Unspecified Prescriptions: DiphenhydrAMINE [Benadryl] 25 mg PO UD #10 cap Referrals: Philip Batres MD [STAFF PHYSICIAN] - 3-5 Days Care Physician,No Primary [Primary Care Provider] - What to do if you have Problems For any increased pain, shortness of breath, bleeding, nausea or vomiting, chest pain, or any unexpected problems, contact your Primary Care Provider. Call [facility] ([phone]) or report to the closest Emergency Room. Call 911 if necessary. 06/17/17 0813 <Electronically signed by Neil Good MD> Date Neil Good MD Cosigner Signature (If Indicated): Date CC: No Primary Care Physician EMERGENCY DEPARTMENT Observed: 06/17/2017 Status: F Source: [place] SUMMARY 8:12 AM [facility] REPOSITORY [facility] Medical Records Department [address] [place] [address] Emergency Department Summary 06/17/17 0721 MR#: [id number] Acct: [id number] Name: SARAH BRAVO Rep #: [id number] : 1975 41 From: Zachariah Porter DO PCP: Care Physician, No Primary Status: REG ER ADDENDUM by Neil Good MD on 06/17/17 at 0811 Date Neil Good MD cc: No Primary Care Physician * Signed ADDENDUM by Neil Good MD on 06/17/[address] of the head was reviewed by me and reviewed by radiologist and there is no acute abnormality to explain her headache. Patient was offered Benadryl and Reglan for home use. She refuses Reglan. She would not give reason why she refused Reglan. I was informed by the nursing staff that a home pack for Netcong was written by Dr. Arzola who initially saw patient. She was told to discontinue that order and not to dispense the Netcong. This is based on recent article on use of opiate analgesia for treatment of migraine and the fact that opiates are known to cause rebound headache. Date Neil Good MD cc: No Primary Care Physician * Signed - ER Visit Summary Date of Service: 06/17/17 Chief Complaint: [Headache] History of Present Illness: The patient is a 41 F [presents the emergency department with a headache that started about 24 hours ago. Patient states the headache is right-sided and describes it as throbbing. Patient states the headache came on gradually. Patient denies any head injury. Patient has had no photophobia and no nausea or vomiting. Last illness patient had was 2 weeks ago she had cold symptoms but those resolved. Patient states that she has had a history of migraines and typically Toradol resolves her headaches. Patient denies any carbon monoxide exposures. No family history of brain tumors or aneurysms. Patient rates her headache a 5 or 6 out of 10. Patient took Toradol at home yesterday did not resolve her headache. Patient also took ibuprofen today.] Physical Examination: [HEENT-PERRLA, EOMI. Cranial nerves II through XII grossly intact. TMs clear. Mucous membranes moist. No adenopathy. Cardiovascular-regular rate and rhythm without murmur or ectopy Lungs-clear to auscultation, chest wall stable without crepitus or subcu emphysema Abdomen-normoactive bowel sounds, soft, nontender, no rebound or rigidity, no peritoneal signs. Neuro wudp-afwtcm-ebqr and heel smith testing within normal limits, negative Romberg, negative pronator drift, fundi benign Extremities-intact 4, normal range of motion, normal pulses, atraumatic] Test Results: [CT scan of brain without contrast pending] Emergency Department Course and Treatment: [Patient received Toradol and a liter normal same fluid bolus which did not help her headache. Patient refused any sedating medications here and refused antinausea medications. Treatment Plan: [She will be given for [place] for home.] Care of patient turned over to morning physician awaiting CT result and disposition to home if normal. DISPOSITION-discharge to home in stable condition Impression: [Cephalgia] This note was generated with PixelTalents dictation software. It may contain incorrect words, spelling, and punctuation that were not noted in review of the chart prior to signing ED Disposition - Plan for ED Patient: Chief Complaint: Headache Referrals: Care Physician,No Primary [Primary Care Provider] - What to do if you have Problems For any increased pain, shortness of breath, bleeding, nausea or vomiting, chest pain, or any unexpected problems, contact your Primary Care Provider. Call [facility] ([phone]) or report to the closest Emergency Room. Call 911 if necessary. 06/17/17724 <Electronically signed by Zachariah Porter DO> Date Zachariah Porter DO Cosigner Signature (If Indicated): Date CC: No Primary Care Physician DISCHARGE INSTRUCTION Observed: 06/17/2017 Status: F Source: [place] 7:26 AM [facility] REPOSITORY [facility] Medical Records Department [address] [place] [address] Discharge Instruction 06/17/17724 MR#: [id number] Acct: [id number] Name: SARAH BRAVO Rep #: [id number] : 1975 41 From: Zachariah Porter DO PCP: Paulino Physician, No Primary Status: REG ER ED Disposition - Plan for ED Patient: Chief Complaint: Headache Instructions: ED Cephalgia Unspecified Referrals: Care Physician,No Primary [Primary Care Provider] - Philip Batres MD [STAFF PHYSICIAN] - 3-5 Days What to do if you have Problems For any increased pain, shortness of breath, bleeding, nausea or vomiting, chest pain, or any unexpected problems, contact your Primary Care Provider. Call [facility] ([phone]) or report to the closest Emergency Room. Call 911 if necessary. 06/17/17 0726 <Electronically signed by Zachariah Porter DO> Date Zachariah Porter DO Cosigner Signature (If Indicated): Date CC: No Primary Care Physician BRAIN/HEAD WITHOUT Observed: 06/17/2017 Status: F Source: [place] CONTRAST 7:21 AM [facility] REPOSITORY [facility] Imaging Services [address] [place] [id number] Brain/Head without Contrast MR#: [id number] Acct: [id number] Name: SARAH BRAVO Rep #: [id number] : 1975 F 41 From: Rubén Lira MD PCP: Care Physician, No Primary Status: REG ER Study: Brain/Head without Contrast Date of Exam: 06/17/17 Exam# [id number] Ordering Dr: Zachariah Porter DO STUDY: CT BRAIN WITHOUT CONTRAST REASON FOR EXAM: Female, 41 years old. Headaches. History of migraines. RADIATION DOSAGE (If Supplied By Facility): CTDIvol = ( 44.99 ) mGy, DLP = ( 745.49 ) mGycm TECHNIQUE: Transaxial CT imaging of the brain was performed without administration of intravenous contrast material. Individualized dose optimization techniques were used for this CT. COMPARISON: Comparison is made with prior study dated February 22, 2015. FINDINGS: Normal soft tissue structures. Normal calvarium. Normal size ventricles and extra-axial spaces for the patient's age. Normal white matter tracts of the cerebral hemispheres. Normal basal ganglia and thalami. Normal brainstem. Normal cerebellum. There is no intracranial hemorrhage. There are no findings of an acute ischemic infarction. Mucosal thickening of the sphenoid sinus. CT/Brain/Head without Contrast IMPRESSION: No acute abnormality is seen. Mucosal thickening of the sphenoid sinus. Electronically Signed: Rubén Lira MD at 8:02 EDT Tel [phone], Service support , CC: No Primary Care Physician; Zachariah Porter DO Milker Machine: Signed EMERGENCY DEPARTMENT Observed: 05/18/2017 Status: F Source: [place] SUMMARY 4:01 PM [facility] REPOSITORY [facility] Medical Records Department [address] [place] [address] Emergency Department Summary 05/17/17 1344 MR#: [id number] Acct: [id number] Name: SARAH BRAVO Rep #: [id number] : 1975 41 From: Jaime Pittman MD PCP: Care Physician, No Primary Status: DEP ER - ER Visit Summary Date of Service: 05/17/17 Chief Complaint: Headache History of Present Illness: The patient is a 41 F with no primary care physician. She reports that she has a headache began today at 10. Similar to her prior headaches. Is a sharp pain right side of her head. Senna 10 at worst 910 currently. Is worsened by nothing including light. She is not taking anything for it. She denies any nausea or vomiting. No fever or chills. No recent trauma. No change in her vision. No numbness or weakness. Physical Examination: Vitals: Stable. Afebrile. Neck: Supple with no meningismus. Neuro: Cranial nerves II through XII are intact, 5 out of 5 strength throughout, normal sensation to light touch throughout. Normal gait. General: A AND O x 3. NAD. Cardiovascular exam: Regular rate and rhythm, no murmur, rub or gallop. Respiratory exam: Clear to auscultation bilaterally. No wheezes or stridor. Abdominal exam: Soft, nontender, nondistended, normal bowel sounds. No peritoneal signs. Extremity: No clubbing, cyanosis, or edema. Emergency Department Course and Treatment: Had an IV placed. She was given a liter normal saline and Toradol. She reports that her headache is resolved. Treatment Plan: Patient will be discharged instructions follow- up the [facility] as needed. Disposition: To home in improved and stable condition. Impression: 1. Migraine headache. This note was generated with PixelTalents dictation software. It may contain incorrect words, spelling, and punctuation that were not noted in review of the chart prior to signing ED Disposition - Plan for ED Patient: Disposition: Home or Assisted Living Chief Complaint: Headache Instructions: ED Headache Migraine Referrals: Concepcion Kumar [NON-STAFF] - 1-2 Days if not improving What to do if you have Problems For any increased pain, shortness of breath, bleeding, nausea or vomiting, chest pain, or any unexpected problems, contact your Primary Care Provider. Call [facility] ([phone]) or report to the closest Emergency Room. Call 911 if necessary. 05/18/17 1601 <Electronically signed by Jaime Pittman MD> Date Jaime Pittman MD Cosigner Signature (If Indicated): Date CC: No Primary Care Physician EMERGENCY DEPARTMENT Observed: 05/18/2017 Status: F Source: [place] SUMMARY 4:01 PM [facility] REPOSITORY [facility] Medical Records Department [address] [place] [address] Emergency Department Summary 05/18/17 1235 MR#: [id number] Acct: [id number] Name: SARAH BRAVO Rep #: [id number] : 1975 41 From: Jaime Pittman MD PCP: Care Physician, No Primary Status: DEP ER - ER Visit Summary Date of Service: 05/18/17 Chief Complaint: Headache History of Present Illness: The patient is a 41 F with no primary care physician. She reports that she has a headache that began this morning at 11 AM when she woke. It is a sharp, tightness on the right side of her head. 10 out of 10 severity. Is worsened by nothing including light. She is not taking anything for pain. She denies any associated nausea, vomiting, photophobia, numbness, weakness, fever, or other complaints. Physical Examination: Vitals: Stable. Afebrile. Neck: Supple with no meningismus. Neuro: Cranial nerves II through XII are intact, 5 out of 5 strength throughout, normal sensation to light touch throughout. Normal gait. General: A AND O x 3. NAD. Cardiovascular exam: Regular rate and rhythm, no murmur, rub or gallop. Respiratory exam: Clear to auscultation bilaterally. No wheezes or stridor. Abdominal exam: Soft, nontender, nondistended, normal bowel sounds. No peritoneal signs. Extremity: No clubbing, cyanosis, or edema. Emergency Department Course and Treatment: Patient was seen yesterday in the emergency department for the same complaint. She is given Toradol then and her headache resolved. She was given Toradol today and her headache resolved. Treatment Plan: The patient reports that Toradol is the only thing that works for her headaches. She will be discharged prescription for Toradol and start to follow-up the [facility] for further evaluation. Disposition: To home in improved and stable condition. Impression: 1. Migraine headache. This note was generated with PixelTalents dictation software. It may contain incorrect words, spelling, and punctuation that were not noted in review of the chart prior to signing ED Disposition - Plan for ED Patient: Chief Complaint: Headache Instructions: ED Headache Migraine Prescriptions: Ketorolac [Toradol] 10 mg PO Q6H PRN #20 tablet PRN Reason: Headache Referrals: Concepcion Kumar [NON-STAFF] - As soon as possible What to do if you have Problems For any increased pain, shortness of breath, bleeding, nausea or vomiting, chest pain, or any unexpected problems, contact your Primary Care Provider. Call [facility] ([phone]) or report to the closest Emergency Room. Call 911 if necessary. 05/18/17 1601 <Electronically signed by Jaime Pittman MD> Date Jaime Pittman MD Cosigner Signature (If Indicated): Date CC: No Primary Care Physician DISCHARGE INSTRUCTION Observed: 05/15/2017 Status: F Source: [place] 10:35 PM [facility] REPOSITORY [facility] Medical Records Department [address] [facility] [place] [address] Discharge Instruction 05/15/172233 MR#: [id number] Acct: [id number] Name: SARAH BRAVO Rep #: [id number] : 1975 41 From: Katerine Osorio MD PCP: Care Physician, No Primary Status: REG ER ED Disposition - Plan for ED Patient: Chief Complaint: Cold Sx Prescriptions: Guaifenesin/Pseudoephedrne HCl [Mucinex D ER 1,200-120 mg Tab] 1 each PO BID PRN #14 tab.er.12h PRN Reason: Congestion Referrals: Care Physician,No Primary [Primary Care Provider] - Sandeep Childs MD [STAFF PHYSICIAN] - What to do if you have Problems For any increased pain, shortness of breath, bleeding, nausea or vomiting, chest pain, or any unexpected problems, contact your Primary Care Provider. Call [facility] ([phone]) or report to the closest Emergency Room. Call 911 if necessary. 05/15/172234 <Electronically signed by Katerine Osorio MD> Date Katerine Osorio MD Cosigner Signature (If Indicated): Date CC: No Primary Care Physician EMERGENCY DEPARTMENT Observed: 05/15/2017 Status: F Source: [place] SUMMARY 10:33 PM [facility] REPOSITORY [facility] Medical Records Department [address] [place] [address] Emergency Department Summary 05/15/172229 MR#: [id number] Acct: [id number] Name: SARAH BRAVO Rep #: [id number] : 1975 41 From: Katerine Osorio MD PCP: Paulino Physician, No Primary Status: REG ER - ER Visit Summary Date of Service: 05/15/17 Chief Complaint: Sinus congestion History of Present Illness: The patient is a 41 F resenting with sinus congestion 1 day. She complains of congestion and runny nose. She has a sore throat. She has a dry cough. Denies fever. Denies chest pain or shortness of breath. She has been taking sbzy-oyk-wsmqhsq medications. She does not have a primary care physician. Denies other complaints. Physical Examination: Vitals are stable. Patient is afebrile. Alert no acute distress. HEENT exam is rhinorrhea, mild maxillary sinus tenderness, pharynx is normal, uvula midline. Neck is supple. No meningismus. Lungs are clear and equal bilaterally. Heart is regular rate and rhythm. Abdomen is soft nontender nondistended. Extremities are unremarkable. Skin is warm and dry. No rash Remainder of exam is unremarkable. Emergency Department Course and Treatment: Chest x-ray shows no acute process. Patient given Mucinex D. Advised to follow-up with Dr. Childs operations research director for no doc. Advised return to ED if worsening complaints. Disposition: Discharge home Impression: URI This note was generated with PixelTalents dictation software. It may contain incorrect words, spelling, and punctuation that were not noted in review of the chart prior to signing ED Disposition - Plan for ED Patient: Chief Complaint: Cold Sx Referrals: Care Physician,No Primary [Primary Care Provider] - What to do if you have Problems For any increased pain, shortness of breath, bleeding, nausea or vomiting, chest pain, or any unexpected problems, contact your Primary Care Provider. Call [facility] ([phone]) or report to the closest Emergency Room. Call 911 if necessary. 05/15/172232 <Electronically signed by Katerine Osorio MD> Date Kateirne Osorio MD Cosigner Signature (If Indicated): Date CC: No Primary Care Physician CHEST 1 VIEW Observed: 05/15/2017 Status: F Source: JASON (PORTABLE) 9:39 PM [facility] REPOSITORY [facility] Imaging Services [address] [place] [address] Chest 1 View (Portable) MR#: [id number] Acct: [id number] Name: SARAH BRAVO Rep #: [id number] : 1975 F 41 From: Jeromy Jones PCP: Care Physician, No Primary Status: REG ER Study: Chest 1 View (Portable) Date of Exam: 05/15/17 Exam# [id number] Ordering Dr: Katerine Osorio MD STUDY: X-RAY CHEST REASON FOR EXAM: Female, 41 years old. Cough TECHNIQUE: Single AP portable view of the chest. COMPARISON: None. FINDINGS: The lungs are clear and expanded. There is no demonstrated pleural abnormality. Normal size heart. Normal mediastinum and ignacio. Normal visualized pulmonary arteries. Normal visualized aortic arch and descending thoracic aorta. Normal visualized thoracic spine. Normal visualized ribs, clavicles, and shoulders. There is no demonstrated abnormality of the visualized soft tissue structures of the upper abdomen. RAD/Chest 1 View (Portable) IMPRESSION: No acute cardiopulmonary disease. Electronically Signed: Jeromy Jones DO at 21:56 EDT , Service support , CC: No Primary Care Physician; Katerine Osorio MD Milker Machine: Signed EMERGENCY DEPARTMENT Observed: 03/26/2017 Status: F Source: JASON SUMMARY 8:18 AM [facility] REPOSITORY [facility] Medical Records Department [address] [place] [address] Emergency Department Summary 03/25/17 1154 MR#: [id number] Acct: [id number] Name: SARAH BRAVO Rep #: [id number] : 1975 41 From: Jaime Pittman MD PCP: Care Physician, No Primary Status: DEP ER - ER Visit Summary Date of Service: 03/25/17 Chief Complaint: Headache History of Present Illness: The patient is a 41 F with no primary care physician. She reports she has a headache began at 830 this morning. It is gradually gotten worse. She took ibuprofen without relief. She describes an aching pain on the right side of her head that is 10 at 10 worsening a 10 currently. Is worsened by light. She been nauseated and vomited twice. No blood in her emesis. She does complain of photophobia. No change in her vision. Patient reports that she has had similar headaches in the past and reports that I have had worst in this. Physical Examination: Vitals: Stable. Afebrile. Neck: Supple with no meningismus. Neuro: Cranial nerves II through XII are intact, 5 out of 5 strength throughout, normal sensation to light touch throughout. Normal gait. General: A AND O x 3. NAD. Cardiovascular exam: Regular rate and rhythm, no murmur, rub or gallop. Respiratory exam: Clear to auscultation bilaterally. No wheezes or stridor. Abdominal exam: Soft, nontender, nondistended, normal bowel sounds. No peritoneal signs. Extremity: No clubbing, cyanosis, or edema. Emergency Department Course and Treatment: She had an IV placed. She is given a liter of normal saline. She is given Toradol and Benadryl IV. She refused nausea medications. She is feeling significantly improved. Treatment Plan: She will be discharged instructions to [facility]2 days not improving. Return to the emergency department for any worsening symptoms. Disposition: To home in improved and stable condition. Impression: 1. Migraine headache. This note was generated with Simfinitation software. It may contain incorrect words, spelling, and punctuation that were not noted in review of the chart prior to signing ED Disposition - Plan for ED Patient: Disposition: Home or Assisted Living Chief Complaint: Headache Instructions: ED Headache Migraine Referrals: Concepcion Kumar [NON-STAFF] - 1-2 Days if not improving What to do if you have Problems For any increased pain, shortness of breath, bleeding, nausea or vomiting, chest pain, or any unexpected problems, contact your Primary Care Provider. Call [facility] ([phone]) or report to the closest Emergency Room. Call 911 if necessary. 03/26/17 0818 <Electronically signed by Jaime Pittman MD> Date Jaime Pittman MD Cosigner Signature (If Indicated): Date CC: No Primary Care Physician EMERGENCY DEPARTMENT Observed: 03/26/2017 Status: F Source: [place] SUMMARY 8:16 AM [facility] REPOSITORY [facility] Medical Records Department [address] [place] [address] Emergency Department Summary 03/26/17 0509 MR#: [id number] Acct: [id number] Name: SARAH BRAVO Rep #: [id number] : 1975 41 From: Saniya Vaughn MD PCP: Care Physician, No Primary Status: DEP ER - ER Visit Summary Date of Service: 03/26/17 Chief Complaint: Headache History of Present Illness: The patient is a 41 F with a history of migraines. Patient complains of headache to the right oriental orthodox region. She has had nausea, vomiting, and photophobia. Patient was seen yesterday for the same. Patient states her headache was improved at discharge, but returned later in the day. She denies any recent URI symptoms. She denies any recent head trauma. Physical Examination: Vital signs are unremarkable. Patient is in no acute distress and is nontoxic appearing. Head and neck examination is normal. She has no meningismus. Heart is regular rate and rhythm. Palpable pulses are noted throughout. Lungs are clear with good air movement throughout. Abdomen is soft and nontender. Bowel sounds are noted. Extremity examination is unremarkable with full range of motion. Neurologic examination reveals no focal deficits. Test Results: Emergency Department Course and Treatment: Patient is treated Toradol, Benadryl, and IV fluids. On repeat evaluation she feels improved. She be discharged home at this time. Treatment Plan: [] Disposition: Discharge Impression: Migraine, improved This note was generated with PixelTalents dictation software. It may contain incorrect words, spelling, and punctuation that were not noted in review of the chart prior to signing ED Disposition - Plan for ED Patient: Disposition: Home or Assisted Living Chief Complaint: Headache Instructions: ED Headache Migraine Referrals: Eddy Wright MD [STAFF PHYSICIAN] - As Needed What to do if you have Problems For any increased pain, shortness of breath, bleeding, nausea or vomiting, chest pain, or any unexpected problems, contact your Primary Care Provider. Call [facility] ([phone]) or report to the closest Emergency Room. Call 911 if necessary. 03/26/17 0816 <Electronically signed by Saniya Vaughn MD> Date Saniya Vaughn MD Cosigner Signature (If Indicated): Date CC: No Primary Care Physician DISCHARGE INSTRUCTION Observed: 03/26/2017 Status: F Source: JASON 5:10 AM [facility] REPOSITORY [facility] Medical Records Department [address] [place] [address] Discharge Instruction 03/26/17 0509 MR#: [id number] Acct: [id number] Name: SARAH BRAVO Rep #: [id number] : 1975 41 From: Saniya Vaughn MD PCP: Care Physician, No Primary Status: REG ER ED Disposition - Plan for ED Patient: Disposition: Home or Assisted Living Chief Complaint: Headache Instructions: ED Headache Migraine Referrals: Eddy Wright MD [STAFF PHYSICIAN] - As Needed What to do if you have Problems For any increased pain, shortness of breath, bleeding, nausea or vomiting, chest pain, or any unexpected problems, contact your Primary Care Provider. Call [facility] ([phone]) or report to the closest Emergency Room. Call 911 if necessary. 03/26/17 0510 <Electronically signed by Saniya Vaughn MD> Date Saniya Vaughn MD Cosigner Signature (If Indicated): Date CC: No Primary Care Physician ALLERGIES ALLERGIES DATE TYPE / CODE NAME / CODE REACTION SEVERITY SOURCE 03/08/2018 Drug hydromorphone Other Unknown Jason Allergy/416 HCl/[id number](RXNO [facility] [id number]([facility] CT) Repository 04/04/2015 DRUG/[id number] HYDROMORPHONE OTHER: SEE C [facility] 003([facility] CT) Repository ENCOUNTERS ENCOUNTERS ADMIT/DISCHARGE ACCOUNT NUMBER ADMITTING ENCOUNTER LOCATION SOURCE CLASS 03/10/2018 [id number] Ambulatory [facility] Repository 03/08/2018/03/09/19 [id number] Emergency [facility] ding:ED Repository 02/10/2018/02/11/20 [id number] Emergency [address] ding:ED Repository 01/07/2018/01/08/20 [id number] Emergency [address] ding:ED Repository 12/11/2017/12/13/19 [id number] Emergency [address] ding:ED Repository 11/19/2017/11/20/19 [id number] Emergency [address] ding:ED Repository 10/31/2017/11/01/19 [id number] [facility] [address] [facility] ding:ED Repository 10/30/2017/10/31/19 [id number] Emergency ABuilding:ER Alec [address] [place] [address] Repository 10/30/2017/10/31/19 [id number] Emergency Jaosn [place] ding:ED Repository 10/27/2017/10/28/19 [id number] Emergency Jason Jason [facility] ding:ED Repository 10/27/2017/10/28/19 [id number] Emergency Jason Jason [facility] ding:ED Repository 09/27/2017/09/28/19 [id number] Emergency BBuilding:ER Alec Moe [facility] Repository 09/26/2017/09/27/19 [id number] Emergency [place] Jason[address] ding:ED Repository 09/23/2017/09/24/19 [id number] Emergency Jason [place] ding:ED Repository 08/29/2017/08/30/19 [id number] Emergency Jason Jason[address] ding:ED Repository 07/28/2017/07/29/19 [id number] Emergency Jason Jason[address] ding:ED Repository 07/27/2017/07/28/19 [id number] Emergency Jason [place] ding:ED Repository 07/27/2017/07/28/19 [id number] Emergency [place] [facility] ding:ED Repository 07/10/2017/07/11/19 [id number] Emergency [place] [facility] ding:ED Repository 07/09/2017/07/10/19 [id number] Emergency Jason [place] [facility] Hospital ding:ED Repository 06/21/2017/06/22/19 [id number] Emergency Jason Jason [facility] Hospital ding:ED Repository 06/18/2017/06/19/19 [id number] Emergency [place] [facility] ding:ED Repository 06/17/2017/06/18/19 [id number] Emergency Jason [place] [facility] ding:ED Repository 06/17/2017/06/18/19 [id number] Emergency Jason[address] ding:ED Repository 05/18/2017/05/19/19 [id number] Emergency [place] ding:ED Repository 05/17/2017/05/18/19 [id number] Emergency [place] Jason[address] ding:ED Repository 05/15/2017/05/16/19 [id number] Emergency [place] ding:ED Repository 03/26/2017/03/26/19 [id number] Emergency Jason[address] ding:ED Repository 03/25/2017 [id number] Emergency [facility] ding:ED Repository 03/25/2017/03/25/19 [id number] Emergency Jason[address] ding:ED Repository PAYERS PAYERS ENCOUNTER GUARANTOR PAYER SUBSCRIBER SOURCE 03/08/2018 SARAH KRISSY Primary SARAH KRISSY Jason [id number] TAIWO Insurance:CARESOURCEP KUHNSDOB: [address] Number: [id number] [facility] [address]Yky: [id number] Repository Date:2018-03-08P O () [address]ATTN: [place] [address]HI: 03/08/2018 Secondary NOT GIVENUNK [place] Insurance:SELF PAY [facility] Number: Effective Repository Date:2018-03-08 02/10/2018 SARAH H Primary SARAH H Jason [id number] TAI[place] Insurance:CARESOURCEP KUHNSDOB: [address] Number: [id number] St[address] [facility] [address]Jwc: [id number] Repository Date:2018-02-10P O () [address]ATTN: [place] [address]XB: 02/10/2018 Secondary NOT GIVENUNK Jason Insurance:SELF PAY [facility] Number: Effective Repository Date:2018-02-10 01/07/2018 SARAH H Primary SARAH H [place] [id number] TAIWO Insurance:CARESOURCEP KUHNSDOB: Community [address] [place] [address] [facility] Number: [id number] St[facility] [address]Owr: [id number] Repository Date:2018-01-07P O (HP) [address]ATTN: [place] [address]CZ: 01/07/2018 Secondary NOT GIVENUNK Jason Insurance:SELF PAY [facility] Number: Effective Repository Date:2018-01-07 12/11/2017 SARAH H Primary SARAH H [place] [id number] TAIWO Insurance:CARESOURCEP KUHNSDOB: Community R[address] [place] [address] Number: [id number] St[address] [facility] [address]Xus: [id number] Repository Date:2017-12-11P O () [address]ATTN: [place] [address]YR: 12/11/2017 Secondary NOT GIVENUNK Jason Insurance:SELF PAY [facility] Number: Effective Repository Date:2017-12-11 11/19/2017 SARAH H Primary SARAH H [place] [id number] TAIWO Insurance:CARESOURCEP KUHNSDOB: Community [address] [place] [address] Number: [id number] St. [facility] [address]Qqo: [id number] Repository Date:2017-11-19P O (HP) [address]ATTN: [place] [address]PM: 11/19/2017 Secondary NOT GIVENUNK Jason Insurance:SELF PAY [facility] Number: Effective Repository Date:2017-11-19 10/31/2017 SARAH H Primary SARAH Don Jason [id number] TAI[place] Insurance:CARESOURCEP KUTAYESDOB: [address] NAVARROfracisco Number: [id number] St[facility] [address]Eny: [id number] Repository Date:2017-10-31P O (HP) [address]ATTN: [place] [address]JZ: 10/31/2017 Secondary NOT GIVENUNK [place] Insurance:SELF PAY [facility] Number: Effective Repository Date:2017-10-31 10/30/2017 SARAH H Primary SARAH Ochoa [facility] KUHNSDOB: Insurance:CARESOURCE KUHNSDOB: [facility] [id number] MEDICAIDPolicy [id number] [address]ository [address] Number: [address] [place] [address] [id number] [address] [place] [address]Wqf: 330) Date:2017-10-30 [id number]: () [phone] [phone] Name:[address] ()Tel: 000 [address], [place] [phone] () [address]PR: 10/30/2017 SARAH H Primary SARAH Don Jason [id number] [place]AI[place] Insurance:CARESOURCEP KUTAYESDOB: [address] [facility] Number: [id number] St[facility] [address]Xji: [id number] Repository Date:2017-10-30P O (HP) [address]ATTN: [place] [address]QO: 10/30/2017 Secondary NOT GIVENUNK [place] Insurance:SELF PAY [facility] Number: Effective Repository Date:2017-10-30 10/27/2017 SARAH H Primary SARAH H [place] [id number] TAIWO Insurance:CARESOURCEP KUHNSDOB: Community [address]eley [place] Number: [id number] St[facility] [address]Haa: [id number] Repository Date:2017-10-27P O () [address]ATTN: [place] [address]IT: 10/27/2017 Secondary NOT GIVENUNK Jason Insurance:SELF PAY [facility] Number: Effective Repository Date:2017-10-27 10/27/2017 SARAH H Primary SARAH H Jason [id number] [facility] Insurance:CARESOURCEP KUHNSDOB: Community [address] luis [place]frac[place] Number: [id number] St[facility] [address]Dba: [id number] Repository Date:2017-10-27P O () [address]ATTN: [place] [address]WR: 10/27/2017 Secondary NOT GIVENUNK Jason Insurance:SELF PAY [facility] Number: Effective Repository Date:2017-10-27 09/27/2017 SARAH H Primary SARAH H [facility] KUHNSDOB: Insurance:CARESOURCE KUHNSDOB: [facility] [id number] MEDICAIDPolicy [id number] Repository [facility] rd[address] Number: [facility] [address] [id number] [address] [place] [address]2016Owd: (330) Date:2017-09-27 89560Hye: (HP) [id number] [phone] Name:XPO Box (HP)Tel: 000) [place], [place] [phone] () [address]CY: 09/26/2017 SARAH H Primary SARAH H Jason [id number] [facility] Insurance:CARESOURCEP KUSDOB: Community [address] luis [place] Number: [id number] St[facility] [address]Tcz: [id number] Repository Date:2017-09-26P O (HP) [address]ATTN: [place] [address]MA: 09/26/2017 Secondary NOT GIVENUNK [place] Insurance:SELF PAY [facility] Number: Effective Repository Date:2017-09-26 09/23/2017 SARAH H Primary SARAH H Jason [id number] [place] Insurance:CARESOURCEP KUHNSDOB: Community [address] [place] [address] [facility] Number: [id number] St[facility] [address]Qwe: [id number] Repository Date:2017-09-23P O (HP) [address]ATTN: [place] [address]GK: 09/23/2017 Secondary NOT GIVENUNK [place] Insurance:SELF PAY [facility] Number: Effective Repository Date:2017-09-23 08/29/2017 SARAH H Primary SARAH H Jason [id number] [place] Insurance:CARESOURCEP KUHNSDOB: [address] [facility] Number: [id number] St. [facility] [address]Jcg: [id number] Repository Date:2017-08-29P O (HP) [address]ATTN: [place] [address]AL: 08/29/2017 Secondary NOT GIVENUNK Jason Insurance:SELF PAY [facility] Number: Effective Repository Date:2017-08-29 07/28/2017 SARAH H Primary SARAH H [place] [id number] [place] Insurance:CARESOURCEP KUHNSDOB: [facility] [address] Number: [id number] St[facility] [address]Acc: [id number] Repository Date:2017-07-28 O (HP) [address]ATTN: [place] [address]OD: 07/28/2017 Secondary NOT GIVENUNK Jason Insurance:SELF PAY [facility] Number: Effective Repository Date:2017-07-28 07/27/2017 SARAH H Primary SARAH H [place] [id number] TAI[place] Insurance:CARESOURCEP KUHNSDOB: Community [address] Number: [id number] St[facility] [address]Ghn: [id number] Repository Date:2017-07-27P O (HP) [address]ATTN: [place] [address]PX: 07/27/2017 Secondary NOT GIVENUNK [place] Insurance:SELF PAY [facility] Number: Effective Repository Date:2017-07-27 07/27/2017 SARAH H Primary SARAH H Jason [id number] [place] Insurance:CARESOURCEP KUHNSDOB: [address] Number: [id number] St. [facility] [address]Vsz: [id number] Repository Date:2017-07-27P O (HP) [address]ATTN: [place] [address]JQ: 07/27/2017 Secondary NOT GIVENUNK Jason Insurance:SELF PAY [facility] Number: Effective Repository Date:2017-07-27 07/10/2017 SARAH H Primary SARAH H [place] [id number] TAIWO Insurance:CARESOURCEP KUHNSDOB: [address] Number: [id number] St. [facility] [address]Yhn: [id number] Repository Date:2017-07-10P O (HP) [address]ATTN: [place] [address]KW: 07/10/2017 Secondary NOT GIVENUNK [place] Insurance:SELF PAY [facility] Number: Effective Repository Date:2017-07-10 07/09/2017 SARAH H Primary SARAH H Jason [id number] TAI[place] Insurance:CARESOURCEP KUHNSDOB: Community [facility] HoracioMARJORIEROOSEVELT GENERAL HOSPITALkeeley Number: [id number] St. [facility] [address]Fqr: [id number] Repository Date:2017-07-09 O (HP) [address]ATTN: [place] [address]BC: 07/09/2017 Secondary NOT GIVENUNK Jason Insurance:SELF PAY [facility] Number: Effective Repository Date:2017-07-09 06/21/2017 SARAH H Primary SARAH Ochoa Jason [id number] TAI[place] Insurance:CARESOURCEP KUHNSDOB: [address] [facility] Number: [id number] St. [facility] [address]Xga: [id number] Repository Date:2017-06-21P O (HP) [address]ATTN: [place] [address]NF: 06/21/2017 Secondary NOT GIVENUNK [place] Insurance:SELF PAY [facility] Number: Effective Repository Date:2017-06-21 06/18/2017 SARAH H Primary SARAH Ochoa Jason [id number] TAI[place] Insurance:CARESOURCEP KUHNSDOB: [address] Number: [id number] St. [facility] [address]Ans: [id number] Repository Date:2017-06-18P O (HP) [address]ATTN: [place] [address]RG: 06/18/2017 Secondary NOT GIVENUNK [place] Insurance:SELF PAY [facility] Number: Effective Repository Date:2017-06-18 06/17/2017 SARAH H Primary SARAH H [place] [id number] TAIWO Insurance:CARESOURCEP KUHNSDOB: [address] Number: [id number] St. [facility] [address]Wom: [id number] Repository Date:2017-06-17P O (HP) [address]ATTN: [place] [address]FG: 06/17/2017 Secondary NOT GIVENUNK [place] Insurance:SELF PAY [facility] Number: Effective Repository Date:2017-06-17 06/17/2017 SARAH H Primary SARAH H [place] [id number] TAIWO Insurance:CARESOURCEP KUHNSDOB: Community [address] [place] [address] [facility] Number: [id number] St[facility] 63281Eul: [id number] Repository Date:2017-06-17P O (HP) [address]ATTN: CLAIMS [place] [address]LH: 06/17/2017 Secondary NOT GIVENUNK Jason Insurance:SELF PAY [facility] Number: Effective Repository Date:2017-06-17 05/18/2017 SARAH H Primary SARAH H Jason [id number] TAI[place] Insurance:CARESOURCEP KUHNSDOB: [address] Number: [id number] St[facility] [address]Fai: [id number] Repository Date:2017-05-18P O (HP) [address]ATTN: [place] [address]GE: 05/18/2017 Secondary NOT GIVENUNK Jason Insurance:SELF PAY [facility] Number: Effective Repository Date:2017-05-18 05/17/2017 SARAH H Primary SARAH H [place] [id number] TAIWO Insurance:CARESOURCEP KUHNSDOB: [address] Number: [id number] St. [facility] [address]1696Xdk: [id number] Repository Date:2017-05-17P O (HP) [address]ATTN: [place] [address]YH: 05/17/2017 Secondary NOT GIVENUNK [place] Insurance:SELF PAY [facility] Number: Effective Repository Date:2017-05-17 05/15/2017 SARAH H Primary SARAH Gomez [id number] TAIWO Insurance:CARESOURCEP KUHNSDOB: Community [address]ish[address] [facility] Number: [id number] St[facility] [address]Vys: [id number] Repository Date:2017-05-15P O (HP) [address]ATTN: [place] [address]VD: 05/15/2017 Secondary NOT GIVENUNK [place] Insurance:SELF PAY [facility] Number: Effective Repository Date:2017-05-15 03/26/2017 Sarah Primary Sarah [id number] TAIWO Insurance:CARESOURCEP KuhnsDOB: [address] Number: [id number] St[facility] [address]Dlk: [id number] Repository Date:2017-03-26P O (HP) [address]ATTN: [place] [address]JD: 03/26/2017 Secondary NOT GIVENUNK [place] Insurance:SELF PAY [facility] Number: Effective Repository Date:2017-03-26 03/25/2017 SARAH H Primary SARAHWILBERT Gomez [id number] TAIWO Insurance:CARESOURCEP KUHNSDOB: [address] Number: [id number] St[address] [facility] [id number]: [id number] Repository Date:2017-03-25P O (HP) [address]ATTN: [place] [address]QM: 03/25/2017 Secondary NOT GIVENUNK Jason Insurance:SELF PAY [facility] Number: Effective Repository Date:2017-03-25 03/25/2017 Sarah Primary Sarah [place] [id number] TAIWO Insurance:CARESOURCEP KuhnsDOB: Community RDLOT keeley GROSS Number: [id number] [facility] [address]Wul: [id number] Repository Date:2017-03-25P O () [address]ATTN: [place] [address]UY: 03/25/2017 Secondary NOT GIVENUNK [place] Insurance:SELF PAY [facility] Number: Effective Repository Date:2017-03-25
== END 2018-02-10 02:52 | disposition home or self-care (01) ==
PROVIDERS: Emergency Provider Emergency Medicine
DX: M54.2 Cervicalgia (principal); M54.6 Pain in thoracic spine
CPT/HCPCS: 96372; 99282; A4216

== ENCOUNTER 2018-03-08 21:39 | Emergency (ER) | payer MEDICAID, SELFPAY ==
[2018-03-08 21:40] VITALS: BP 107/70; PULSE 93; RESP 18; TEMP 36.1; O2SAT 98; BMI 24.5
[2018-03-08] MEDS: 0.9% Normal Saline 1,000 ML 1000 ML IV (23:00)
[2018-03-08] MEDS: Ketorolac 30 MG/ML Syringe IV (23:03)
--- NOTE | 2018-03-08 23:54 | ED.DCSUM_ITS ---
- ER Visit Summary Date of Service: 03/08/18 Chief Complaint: Headache History of Present Illness: The patient is a 42 F with history of migraines. She reports right-sided migraine that started yesterday due to change in weather. This morning she felt nauseated, but denies that currently. She was brought to see her PCP to establish care today but states she was too sick to make it to her appointment. Physical Examination: Vital signs unremarkable. Patient is lying in a darkened room. She is in no acute distress. Head neck examination unremarkable. Head and neck examination unremarkable. Heart is regular rate and rhythm. Lung sounds are clear. Abdomen is soft nontender. Neuro exam reveals no focal deficits. Test Results: [] Emergency Department Course and Treatment: Patient was given a liter of IV fluids and Toradol. On repeat evaluation she feels improved and is requesting discharge to home. Treatment Plan: [] Disposition: Discharge Impression: Migraine, improved This note was generated with [employer] dictation software. It may contain incorrect words, spelling, and punctuation that were not noted in review of the chart prior to signing ED Disposition - Plan for ED Patient: Chief Complaint: Headache Referrals: Care Physician,No Primary [Primary Care Provider] -
--- NOTE | 2018-03-08 23:55 | ED.DEP ---
ED Disposition - Plan for ED Patient: Disposition: Home or Assisted Living Chief Complaint: Headache Instructions: ED Headache Migraine Additional Instructions: Follow-up with your [facility] provider as soon as possible.
[2018-03-09 00:02] VITALS: BP 97/56; PULSE 95; RESP 14; O2SAT 95
== END 2018-03-09 00:03 | disposition home or self-care (01) ==
PROVIDERS: Emergency Provider Emergency Medicine
DX: G43.909 Migraine, unspecified, not intractable, without status migrainosus (principal)
CPT/HCPCS: 96361; 96374; 99283; J7030; A4216

== ENCOUNTER 2018-03-30 21:16 | Emergency (ER) | payer MEDICAID, SELFPAY ==
[2018-03-30 21:17] VITALS: BP 140/72; PULSE 99; RESP 18; TEMP 36.7; O2SAT 94; BMI 24.4
--- NOTE | 2018-03-30 21:46 | ED.VISSUMM ---
- ER Visit Summary Date of Service: 03/30/18 Chief Complaint: Headache History of Present Illness: The patient is a 42 F presenting with headache. Patient states that this started gradually earlier today. She has nausea with no vomiting. She denies fever. She has light sensitivity. This feels similar to her previous migraines. She had no trauma. She states typically Toradol and Benadryl improve her symptoms. She did drive herself to the ED today. Physical Examination: Vitals are stable. Patient is afebrile. Alert no acute distress. HEENT exam is unremarkable. Neck is supple. No meningismus Lungs are clear and equal bilaterally. Heart is regular rate and rhythm. Extremities are unremarkable. Skin is warm and dry. No rash No focal neurologic deficit. Remainder of exam is unremarkable. Emergency Department Course and Treatment: Patient was given Toradol IV. On reevaluation, she is resting comfortably. She is advised to follow-up with Dr. Porter electrical and electronic assembler for no doc. Advised return to ED if worsening complaints. Disposition: Discharge home Impression: Headache This note was generated with Right Skills dictation software. It may contain incorrect words, spelling, and punctuation that were not noted in review of the chart prior to signing ED Disposition - Plan for ED Patient: Instructions: ED Cephalgia Unspecified Referrals: Josué Porter III, MD [STAFF PHYSICIAN] -
[2018-03-30] MEDS: Ketorolac 30 MG/ML Syringe IV (21:54)
--- NOTE | 2018-03-30 23:05 | ED.DEP ---
ED Disposition - Plan for ED Patient: Instructions: ED Cephalgia Unspecified Referrals: Josué Porter III, MD [STAFF PHYSICIAN] -
== END 2018-03-30 23:34 | disposition home or self-care (01) ==
LOC: ED 21:44
PROVIDERS: Emergency Provider Emergency Medicine
DX: R51 Headache (principal); Z87.891 Personal history of nicotine dependence
CPT/HCPCS: 96374; 99283; A4216

== ENCOUNTER 2018-03-31 11:28 | Emergency (ER) | payer MEDICAID, SELFPAY ==
[2018-03-30 21:17] VITALS: BMI 24.4
[2018-03-31 11:29] VITALS: BP 118/66; PULSE 88; RESP 20; TEMP 36.6; O2SAT 99; BMI 24.2
--- NOTE | 2018-03-31 11:33 | ED.RN ---
PT DROVE SELF TO ED. STATES WAS NOT ABLE TO FIND ANYONE WHO COULD BRING HER. PT ADVISED WILL NOT BE ALLOWED TO DRIVE IF MEDICATED
--- NOTE | 2018-03-31 11:42 | ED.RN ---
CASE MANAGEMENT NOTIFIED THAT PT IN ED
--- NOTE | 2018-03-31 11:45 | ED.VISSUMM ---
- ER Visit Summary Date of Service: 03/31/18 Chief Complaint: Migraine headache History of Present Illness: The patient is a 42 F who has a history of migraine headaches. She was seen yesterday and treated with Toradol. She drove herself to the hospital. She states the headache recurred. Headache is global throbbing. There is no double vision, blurred vision or loss of vision. He does complain of light sensitivity. Reports nausea. States she had 2 episodes of diarrhea this morning. She denies neck pain or neck stiffness. She denies cardiac or respiratory symptoms. She denies dysuria, frequency, urgency hematuria. She denies myalgias arthralgias. She denies rash or skin lesions. He denies muscle weakness or any sensory symptoms. She denies problems with balance. Please read written note for complete detail. Physical Examination: Vital signs noted unremarkable. Head is atraumatic normocephalic. Pupils are equal round reactive. Extraocular muscles are intact. Funduscopic exam reveals normal cup-to-disc ratio. There is no papilledema. Venous pulsations noted bilaterally. TMs are pearly white with landmarks noted. Nares patent with no drainage. Posterior pharynx without erythema or exudate. Uvula is midline. There is no dysphonia or dysphasia. Trachea is midline. There is no stridor with auscultation of the neck. Neck is supple with negative Kernig presents to sign. Heart is regular without murmur, gallop or rub. S1 and S2 are normal. Lungs are clear to auscultation with good movement of air bilaterally. Abdomen soft nontender. Patient is alert and oriented ?3. Motor is 5 over 5. Sensory is intact. DTRs are symmetric with no clonus or Babinski sign. Cranial 2 through 12 are intact. Cerebellar testing is normal. Test Results: None were obtained Emergency Department Course and Treatment: IV was established. Patient declined Benadryl and Reglan since she drove herself to the emergency department. She was treated with IV Toradol and will be reassessed. Treatment Plan: Patient was reassessed at 03/01/2007. She had to be aroused. She states headache has improved markedly. She was reassessed at 1225. She states her pain has resolved. Disposition: Discharged home in stable improved condition Impression: Migraine without aura This note was generated with Dragon dictation software. It may contain incorrect words, spelling, and punctuation that were not noted in review of the chart prior to signing ED Disposition - Plan for ED Patient: Disposition: Home or Assisted Living Instructions: ED Headache Migraine Referrals: Care Physician,No Primary [Primary Care Provider] - Doctor,Your [STAFF PHYSICIAN] - As Needed
[2018-03-31] MEDS: Ketorolac 30 MG/ML Syringe IV (11:53)
[2018-03-31] MEDS: 0.9% Normal Saline 1,000 ML 999 ML IV (11:53)
--- NOTE | 2018-03-31 12:08 | CM.ED ---
Social Work Note Updated by RN, Vicente Mortensen, that pt was here and had a CP. Face to face with pt and introduced self and role. Pt immediately dismisses SW and states she does not want to talk to a SW and requests that SW exit room. Explain to the pt that this SW is here d/t her assigned care plan for overutilizing of the ED for chronic headache concerns which are inappropriate for an acute care setting such as the ED and to assist her with linkage to appropriate resources that can benefit her. Again pt states she does not want to talk to this SW. Educate pt to [facility], transportation services, Behavioral Health, PCPs that are accepting her insurance, and where to go, when to go. Pt tells SW to not leave resources. Again, explain that she does not have to take, but this SW is leaving them as her care plan requires it and it will continue to be reinforced as her overutilizing of the ED continues. Pt covers head with blanket and abruptly states, you need to leave now. Intervention(s): Resources provided as directed in EDCP. Pt rude and abrupt throughout conversation and dismissive of assistance. Mounika Young, CHEMISTRY TEACHER, FRANCO
[2018-03-31 12:44] VITALS: BP 108/62; PULSE 74; RESP 15; O2SAT 97
== END 2018-03-31 12:45 | disposition home or self-care (01) ==
PROVIDERS: Emergency Provider Emergency Medicine
DX: G43.909 Migraine, unspecified, not intractable, without status migrainosus (principal); E66.9 Obesity, unspecified; Z68.24 Body mass index [BMI] 24.0-24.9, adult; Z87.891 Personal history of nicotine dependence
CPT/HCPCS: 96361; 96374; 99282; J7030

== ENCOUNTER 2018-07-19 12:40 | Emergency (ER) | payer MEDICAID, SELFPAY ==
[2018-07-19 12:41] VITALS: BP 137/74; PULSE 89; RESP 16; TEMP 36.8; O2SAT 97; BMI 24.6
[2018-07-19] MEDS: Ketorolac 60 MG/2 ML Vial IM (13:08)
--- NOTE | 2018-07-19 13:15 | RAD_ITS ---
STUDY: X-RAY - PELVIS REASON FOR EXAM: Female, 43 years old. Pain. TECHNIQUE: One view of the pelvis was obtained. COMPARISON: None. FINDINGS: Moderate amount of fecal material is seen in the colon. Normal visualized soft tissue structures. Normal bilateral iliac wings, sacroiliac joints and visualized sacrum. Normal visualized bilateral superior and inferior pubic rami. Normal pubic symphysis. Normal ischial tuberosities. Normal visualized right femoral head. Normal right acetabulum. Normal right hip joint. Normal visualized left femoral head. Normal left acetabulum. Normal left hip joint. RAD/Pelvis 1 or 2 Views IMPRESSION: Moderate amount of fecal material is seen in the colon. Electronically Signed: Rubén Lira, at 13:31 EDT , Service support ,
[2018-07-19 14:17] LABS: Color, Urine Yellow (Yellow); Glucose, Dipstick Normal (Normal); Leukocyte Esterase-Dipstick 500 /ul (Negative); Nitrite-Dipstick Positive (Negative); Occult Blood-Urine 25 /ul (Negative); Protein-Dipstick 30 mg/dl (Negative); Urine Clarity Sl. Cloudy (Clear); Urine Urobilinogen 4 mg/dl (Normal)
[2018-07-19 14:18] LABS: Urine Bilirubin Dipstick 3 mg/dL (Negative)
[2018-07-19 14:19] LABS: Ketone-Dipstick 150 mg/dl (Negative)
[2018-07-19 14:24] LABS: Bacteria 1+ /hpf (None Seen); Red Blood Cells-Urine 0-5 SEEN /hpf (0-5); Squamous Epithelial Cells - UA 0-5 SEEN /hpf (5-10); White Blood Cells 25-50 SEEN /hpf (0-5)
[2018-07-19 14:25] LABS: Internal QC Validated? YES +Cl - CLEAR BKGD; Mucous, Urine 1+ /hpf (<or=2+); Pregnancy, Urine Negative Negative
--- NOTE | 2018-07-19 14:39 | ED.VISSUMM ---
- ER Visit Summary Date of Service: 07/19/18 Chief Complaint: Left hip pain History of Present Illness: The patient is a 43 F. With no primary care physician. She reports that she has pain in her left hip. However, when asked to show the location of this is actually in her left buttock. States that she is had the pain for approximately 2 months. It worsened today. Is a sharp pain is 10-10 at worst 9-10 currently. Is worsened by movement or walking. Is relieved by rest. She denies any radiation to her leg. No numbness or weakness in her legs. No problems with her bowels or bladder. No groin numbness. Patient denies any recent trauma. No fall, MVA, or change in activity. On review of systems she reports that she has had dysuria frequency for the past 2 days. She denies any fever, chills, nausea, vomiting, or other constitutional symptoms. Physical Examination: Vitals: Stable. Afebrile. General: A&O x 3. NAD. Cardiovascular exam: Regular rate and rhythm, no murmur, rub or gallop. Respiratory exam: Clear to auscultation bilaterally. No wheezes or stridor. Abdominal exam: Soft, nontender, nondistended, normal bowel sounds. No peritoneal signs. Back: Diffuse moderate tenderness to palpation over the lumbar spine and the paraspinous musculature in the lumbar region. No point tenderness. Negative straight leg bilaterally. 5/5 DF, PF, EHL bilaterally. Normal sensation to light touch throughout. Extremity: No clubbing, cyanosis, or edema. Test Results: Pelvis x-ray shows increased stool and no acute disease. UA does show UTI. Patient tested negative. Emergency Department Course and Treatment: Patient was treated with Toradol IM and Keflex. She is resting comfortably. Treatment Plan: Patient discharged with naproxen and Keflex. [facility] if not improving. Return to the emergency department for any worsening symptoms. Disposition: To home in improved and stable condition. Impression: 1. Left buttock pain. 2. UTI. This note was generated with Kinamik Data Integrityation software. It may contain incorrect words, spelling, and punctuation that were not noted in review of the chart prior to signing ED Disposition - Plan for ED Patient: Disposition: Home or Assisted Living Instructions: ED Neck Back Pain General, ED UTI Cystitis Female Prescriptions: Cephalexin [Keflex] 500 mg PO Q12 #14 capsule Naproxen [Naprosyn] 500 mg PO BID #14 tablet Referrals: Concepcion Kumar [NON-STAFF] - 5-7 Days
[2018-07-19] MEDS: Cephalexin 500 MG Capsule PO (14:47)
== END 2018-07-19 14:53 | disposition home or self-care (01) ==
LOC: ED 13:05
PROVIDERS: Emergency Provider Emergency Medicine
DX: M79.18 Myalgia, other site (principal); N39.0 Urinary tract infection, site not specified
CPT/HCPCS: 72170; 81001; 81025; 96372; 99283

== ENCOUNTER 2018-07-20 02:22 | Emergency (ER) | payer MEDICAID, SELFPAY ==
[2018-07-19 12:41] VITALS: BMI 24.6
[2018-07-20 02:22] VITALS: BP 121/61; PULSE 77; RESP 16; TEMP 37.2; O2SAT 99; BMI 25.8
[2018-07-20] MEDS: 0.9% Normal Saline 1,000 ML 999 ML IV (02:59)
[2018-07-20] MEDS: Ketorolac 30 MG/ML Syringe IV (02:59)
--- NOTE | 2018-07-20 03:00 | ED.DCSUM_ITS ---
- ER Visit Summary Date of Service: 07/20/18 Chief Complaint: Headache History of Present Illness: The patient is a 43 F who presents with a headache. It began about an hour ago. She describes it as dull and pressure-like diffusely to her head. She can planes of nausea. She was seen earlier today for hip pain and was also diagnosed with a UTI. Patient has a history of chronic recurrent headaches with multiple emergency department visits for similar symptoms. Physical Examination: Afebrile vitals within normal limits No distress Moist mucous membranes Heart regular rate and rhythm Lungs clear Alert no focal or lateralizing neurological deficits Test Results: Not indicated Emergency Department Course and Treatment: Patient was treated with IV fluids and Toradol. She reported only minimal improvement in her headache. She was given IV DHE and her headache improved to a 2 but she did have one episode of emesis. She was given IV Zofran. On reevaluation she is resting comfortably and has had no further vomiting. She was discharged. Treatment Plan: [] Disposition: Discharge Impression: Headache This note was generated with DonorPro dictation software. It may contain incorrect words, spelling, and punctuation that were not noted in review of the chart prior to signing ED Disposition - Plan for ED Patient: Referrals: Care Physician,No Primary [Primary Care Provider] -
[2018-07-20] MEDS: Dihydroergotamine 1 MG/ML Ampul IV (03:37)
[2018-07-20] MEDS: Ondansetron 4 MG/2 ML Vial IV (03:51)
--- NOTE | 2018-07-20 04:20 | ED.DEP ---
ED Disposition - Plan for ED Patient: Instructions: ED Cephalgia Unspecified Referrals: Care Physician,No Primary [Primary Care Provider] -
[2018-07-20 04:34] VITALS: BP 110/60; PULSE 70; RESP 16; O2SAT 95
== END 2018-07-20 04:35 | disposition home or self-care (01) ==
PROVIDERS: Emergency Provider Emergency Medicine
DX: R51 Headache (principal)
CPT/HCPCS: 96361; 96374; 96375; 99284; A4216; J1110; J2405

== ENCOUNTER 2018-07-27 02:53 | Emergency (ER) | payer MEDICAID, SELFPAY ==
[2018-07-27 02:54] VITALS: BP 113/65; PULSE 76; RESP 16; TEMP 36.7; O2SAT 98; BMI 25.3
--- NOTE | 2018-07-27 03:20 | DCINST.ED_ITS ---
ED Disposition - Plan for ED Patient: Instructions: ED Sprain Hip Referrals: Rodney Sprague MD [NON-STAFF] -
--- NOTE | 2018-07-27 03:22 | ED.VISSUMM ---
- ER Visit Summary Date of Service: 07/27/18 Chief Complaint: Left hip pain History of Present Illness: The patient is a 43 F presenting with left hip pain. Patient states this has been ongoing for the past 2 months. She has been seen in the ED for similar complaints. She has naproxen at home that she has been taking. She denies any recent injury. Denies bowel or bladder incontinence. Denies numbness or weakness. She was recently treated for urinary tract infection. She denies fever. Denies other complaints. Physical Examination: Vitals are stable. Patient is afebrile. Alert no acute distress. HEENT exam is unremarkable. Neck is supple. Lungs are clear and equal bilaterally. Heart is regular rate and rhythm. Abdomen is soft nontender nondistended. Back is nontender Extremities mild left lateral hip tenderness to palpation. Active full range of motion. No erythema or warmth. Neurovascularly intact distally. Skin is warm and dry. No focal neurologic deficit. Normal strength and sensation Remainder of exam is unremarkable. Emergency Department Course and Treatment: Patient given Toradol, Norflex IM. She is advised to continue her naproxen at home. She is advised to follow with Dr. Sprague protection engineer for no doc. Advised to return to the ED for worsening complaints. Disposition: Discharge home Impression: Chronic left hip pain This note was generated with WorldWinger dictation software. It may contain incorrect words, spelling, and punctuation that were not noted in review of the chart prior to signing ED Disposition - Plan for ED Patient: Instructions: ED Sprain Hip Referrals: Rodney Sprague MD [NON-STAFF] -
--- NOTE | 2018-07-27 03:25 | ED.DCSUM_ITS ---
- ER Visit Summary Date of Service: 07/27/18 Chief Complaint: Left hip pain History of Present Illness: The patient is a 43 F presenting with left hip pain. Patient states this has been ongoing for the past 2 months. She has been seen in the ED for similar complaints. She has naproxen at home that she has been taking. She denies any recent injury. Denies bowel or bladder incontinence. Denies numbness or weakness. She was recently treated for urinary tract infection. She denies fever. Denies other complaints. Physical Examination: Vitals are stable. Patient is afebrile. Alert no acute distress. HEENT exam is unremarkable. Neck is supple. Lungs are clear and equal bilaterally. Heart is regular rate and rhythm. Abdomen is soft nontender nondistended. Back is nontender Extremities mild left lateral hip tenderness to palpation. Active full range of motion. No erythema or warmth. Neurovascularly intact distally. Skin is warm and dry. No focal neurologic deficit. Normal strength and sensation Remainder of exam is unremarkable. Emergency Department Course and Treatment: Patient given Toradol, Norflex IM. She is advised to continue her naproxen at home. She is advised to follow with Dr. Sprague completion engineer for no doc. Advised to return to the ED for worsening complaints. Disposition: Discharge home Impression: Chronic left hip pain This note was generated with MakerBot dictation software. It may contain incorrect words, spelling, and punctuation that were not noted in review of the chart prior to signing ED Disposition - Plan for ED Patient: Instructions: ED Sprain Hip Referrals: Rodney Sprague MD [NON-STAFF] -
== END 2018-07-27 03:31 | disposition home or self-care (01) ==
LOC: ED 03:05
PROVIDERS: Emergency Provider Emergency Medicine
DX: M25.552 Pain in left hip (principal); G89.29 Other chronic pain; Z87.891 Personal history of nicotine dependence
CPT/HCPCS: 99282

== ENCOUNTER 2018-08-02 05:56 | Emergency (ER) | payer MEDICAID, SELFPAY ==
[2018-08-02 05:57] VITALS: BP 103/61; RESP 16; TEMP 36.4; BMI 24.9
[2018-08-02 06:00] VITALS: PULSE 96; O2SAT 97
--- NOTE | 2018-08-02 06:03 | ED.DCSUM_ITS ---
- ER Visit Summary Date of Service: 08/02/18 Chief Complaint: Left hip pain History of Present Illness: The patient is a 43 F presents to the emergency department with left hip pain. Patient denies any trauma. She states she will have this pain from time to time. States got worse yesterday. She had a di fficult time sleeping because of the pain. It is mostly located on the outer aspect of the left hip into the mid thigh. She did not fall. She denies any change in gait. She denies back pain. She has had no urinary symptoms. She denies any fevers or chills. She has not found anything to improve the symptoms. Physical Examination: Afebrile, vitals unremarkable. Well-appearing female no acute distress. Head is normocephalic, atraumatic. Pupil's equal round reactive, extraocular muscles intact. Neck supple. Heart regular rate and rhythm. Lungs clear, chest nontender. Abdomen soft, nontender, nondistended. No pulsatile mass. Patient has no paraspinal tenderness in the lumbar area, and no bony tenderness. She does have some mild pain over the left greater t rochanter, but no erythema or edema. No pain with small arc range of motion straight leg raise is negative bilaterally. 2+ symmetric lower extremity pulses. 2+ reflexes. No clonus. No weakness of dorsiflexion, plantar flexion, or extensor hallucis longus bilaterally. Test Results: [] Emergency Department Course and Treatment: The patient presents with an exacerbation of her chronic hip pain. She did have x-rays less than a month ago which were unremarkable. She said no new injury. I do not feel that x-rays are necessary. Patient was treated with Toradol and Norflex. She will be given prescription for anti-inflammatories. She states she already has follow-up in place with primary care physician tomorrow. She will be discharged home. Treatment Plan: [] Disposition: Discharge Impression: 1. Left hip pain This note was generated with Alticast dictation software. It may contain incorrect words, spelling, and punctuation that were not noted in review of the chart prior to signing ED Disposition - Plan for ED Patient: Instructions: ED Sprain Hip Prescriptions: Naproxen [Naprosyn] 500 mg PO BID PRN #20 tab Referrals: Concepcion Lopez [Primary Care Provider] -
[2018-08-02] MEDS: Ketorolac 60 MG/2 ML Vial IM (06:05)
[2018-08-02] MEDS: Orphenadrine 60 MG/2 ML Ampul IM (06:06)
--- NOTE | 2018-08-02 06:30 | ED.RN ---
PT WAS OBSERVED FOR AN INJECTION REACTION FOR 15MINUTES BEFORE D/C
[2018-08-02 06:31] VITALS: BP 103/61; PULSE 96; RESP 16; O2SAT 97
--- NOTE | 2018-08-02 06:31 | ED.RN ---
NO INJECTION REACTION WAS OBSERVED BY THIS NURSE.
== END 2018-08-02 06:33 | disposition home or self-care (01) ==
LOC: ED 06:11
PROVIDERS: Emergency Provider Emergency Medicine
DX: M25.552 Pain in left hip (principal); G89.29 Other chronic pain; Z72.0 Tobacco use
CPT/HCPCS: 96372; 99282

== ENCOUNTER 2018-08-06 12:02 | Emergency (ER) | payer MEDICAID, SELFPAY ==
[2018-08-06 12:04] VITALS: BP 114/71; PULSE 80; RESP 18; TEMP 36.4; O2SAT 97; BMI 27.5
--- NOTE | 2018-08-06 12:52 | ED.DEP ---
ED Disposition - Plan for ED Patient: Instructions: ED Sciatica Prescriptions: Naproxen [Naprosyn] 500 mg PO BID PRN #20 tablet Referrals: Ngoc Mabry, FUNERAL ARRANGEMENT DIRECTOR-C [Primary Care Provider] - Concepcion Kumar [NON-STAFF] -
--- NOTE | 2018-08-06 12:53 | DCINST.ED_ITS ---
ED Disposition - Plan for ED Patient: Instructions: ED Sciatica Prescriptions: Naproxen [Naprosyn] 500 mg PO BID PRN #20 tablet Referrals: Ngoc Mabry, LINE PAINTING MACHINE OPERATOR-C [Primary Care Provider] - Concepcion Kumar [NON-STAFF] -
--- NOTE | 2018-08-06 12:56 | ED.VISSUMM ---
- ER Visit Summary Date of Service: 08/06/18 Chief Complaint: Left hip pain History of Present Illness: The patient is a 43 F presenting with left hip pain. Patient states this has been ongoing for awhile. She was seen by her primary care physician at [facility] on . She states she was set up for physical therapy. She has not started this yet. She has been taking Tylenol at home. She denies bowel or bladder incontinence. Denies weakness. She has pain in her left hip that radiates to her left thigh. She is able to ambulate. She has no fever. She complains of mild nausea with no vomiting. Denies abdominal pain. Denies other complaints. Physical Examination left paraspinal lumbar muscle tenderness, no midline tenderness vitals are stable. Patient is afebrile. Alert no acute distress. HEENT exam is unremarkable. Neck is supple. Lungs are clear and equal bilaterally. Heart is regular rate and rhythm. Abdomen is soft nontender nondistended. Back: Left paraspinal lumbar muscle tenderness, no midline tenderness. Straight leg raise positive at 30 degrees on the left Extremities left lateral hip tenderness. Normal distal pulses Skin is warm and dry. No focal neurologic deficit. Normal strength and sensation Remainder of exam is unremarkable. Emergency Department Course and Treatment: Patient was given Toradol, Norflex IM. She is given prescription for Naprosyn. Advised to follow-up with her primary care physician as scheduled. Advised return ED for worsening complaints. Disposition: Discharge home Impression: Chronic left hip pain This note was generated with Fundraise.com dictation software. It may contain incorrect words, spelling, and punctuation that were not noted in review of the chart prior to signing ED Disposition - Plan for ED Patient: Instructions: ED Sciatica Prescriptions: Naproxen [Naprosyn] 500 mg PO BID PRN #20 tablet Referrals: Concepcion Kumar [NON-STAFF] - Ngoc Mabry NP-C [Primary Care Provider] -
--- NOTE | 2018-08-06 13:01 | ED.DCSUM_ITS ---
- ER Visit Summary Date of Service: 08/06/18 Chief Complaint: Left hip pain History of Present Illness: The patient is a 43 F presenting with left hip pain. Patient states this has been ongoing for awhile. She was seen by her primary care physician at [facility] on . She states she was set up for physical therapy. She has not started this yet. She has been taking Tylenol at home. She denies bowel or bladder incontinence. Denies weakness. She has pain in her left hip that radiates to her left thigh. She is able to ambulate. She has no fever. She complains of mild nausea with no vomiting. Denies abdominal pain. Denies other complaints. Physical Examination left paraspinal lumbar muscle tenderness, no midline tenderness vitals are stable. Patient is afebrile. Alert no acute distress. HEENT exam is unremarkable. Neck is supple. Lungs are clear and equal bilaterally. Heart is regular rate and rhythm. Abdomen is soft nontender nondistended. Back: Left paraspinal lumbar muscle tenderness, no midline tenderness. Straight leg raise positive at 30 degrees on the left Extremities left lateral hip tenderness. Normal distal pulses Skin is warm and dry. No focal neurologic deficit. Normal strength and sensation Remainder of exam is unremarkable. Emergency Department Course and Treatment: Patient was given Toradol, Norflex IM. She is given prescription for Naprosyn. Advised to follow-up with her [facility] physician as scheduled. Advised return ED for worsening complaints. Disposition: Discharge home Impression: Chronic left hip pain This note was generated with SongAfter dictation software. It may contain incorrect words, spelling, and punctuation that were not noted in review of the chart prior to signing ED Disposition - Plan for ED Patient: Instructions: ED Sciatica Prescriptions: Naproxen [Naprosyn] 500 mg PO BID PRN #20 tablet Referrals: Concepcion Kumar [NON-STAFF] - Ngoc Mabry NP-C [Primary Care Provider] -
--- NOTE | 2018-08-06 13:16 | ED.RN ---
THIS RN ASKED PT TO PULL PANTS DOWN OVER THIGHS IN ORDER TO RECEIVE IM INJECTIONS. PT STATES SHE IS UNABLE TO PULL PANTS DOWN, DEMANDED THIS RN PULL HER PANTS DOWN WITHOUT ANY ASSISTANCE FROM PT. WHEN ASKED IF SHE IS ABLE TO CARE FOR SELF INDEPENDENTLY AT HOME, PT BECAME ANGRY, DECLINED MEDS, RX AND DISCHARGE PAPERWORK, PUT SOCKS AND SHOES ON AND AMBULATED OUT OF DEPARTMENT WITH STEADY GAIT.
== END 2018-08-06 13:21 | disposition home or self-care (01) ==
PROVIDERS: Emergency Provider Emergency Medicine; Family Provider Nurse Practitioner Family; PCP Nurse Practitioner Family
DX: M25.552 Pain in left hip (principal); G89.29 Other chronic pain
CPT/HCPCS: 99282

== ENCOUNTER 2018-08-22 20:18 | Emergency (ER) | payer MEDICAID, SELFPAY ==
[2018-08-22 20:18] VITALS: BP 113/80; PULSE 75; RESP 18; TEMP 36.7; O2SAT 98; BMI 23.7
--- NOTE | 2018-08-22 21:22 | ED.RN ---
WHEN DR ALCARAZ WALKED INTO THE ROOM, PT PUT HER SHOES ON AND WALKED OUT OF THE ROOM
--- NOTE | 2018-08-22 21:23 | ED.DCSUM_ITS ---
- ER Visit Summary Date of Service: 08/22/18 Chief Complaint: Headache History of Present Illness: The patient is a 43 F presenting for headache. Patient has a history of migraine headaches. As I walked into the room, patient put her shoes on and stated that she was leaving. She was offered medications f or her headache and she stated that she needed to leave. She eloped from the emergency department before physical exam or treatment could be completed. This note was generated with Destination Media dictation software. It may contain incorrect words, spelling, and punctuation that were not noted in review of the chart prior to signing ED Disposition - Plan for ED Patient: Referrals: Care Physician,No Primary [Primary Care Provider] -
== END 2018-08-22 21:22 | disposition left against medical advice (07) ==
PROVIDERS: Emergency Provider Emergency Medicine
DX: R51 Headache (principal); Z53.21 Procedure and treatment not carried out due to patient leaving prior to being seen by health care provider
CPT/HCPCS: 99281

== ENCOUNTER 2018-09-24 05:29 | Emergency (ER) | payer MEDICAID, SELFPAY ==
[2018-08-25 10:52] VITALS: BMI 23.7
[2018-09-24 05:30] VITALS: BP 108/56; PULSE 92; RESP 18; TEMP 36.2; O2SAT 96; BMI 26.9
--- NOTE | 2018-09-24 05:40 | ED.VIS.GEN ---
History of Present Illness Chief Complaint: Headache Informant: Patient Onset: Today Narrative: Reports awakening with frontal headache 4 AM, less than 2 hours ago. No falls or head injuries. No photophobia or phonophobia. No aura sensations. States due to headache, stomach gets upset. Denies any pain in the region. No vomiting. No diarrhea. Patient reports her sciatica is acting up on the left side. No trauma. She has a multiple similar complaints with her ED presentation in the past. She is seen orthopedics in the past however missed her last appointment 8 days ago. She has naproxen however states does not help her symptoms. No history of gastric ulcers or kidney injury. No fevers. Prior similar symptoms: Yes Past Medical History - Allergies and Home Meds Allergies/Adverse Reactions: Allergies hydromorphone HCl [From Dilaudid] Adverse Reaction (Verified 09/24/18 05:33) Other Primary Care Physician: Care Physician,No Primary [Primary Care Provider] - Smoking Status: Former smoker Review of Systems All systems negative except as indicated General: Denies: Chills, Fever, Sweats Eyes: Denies: Visual changes - bilaterally, Diplopia ENT: Denies: Rhinorrhea, Sore throat Cardiovascular: Denies: Chest pain, Palpitations Respiratory: Denies: Dyspnea, Cough, Dyspnea on exertion Gastrointestinal: Reports: Nausea. Denies: Abdominal pain, Vomiting, Diarrhea, Melena, Hematochezia Genitourinary: Denies: Dysuria, Hematuria, Frequency Musculoskeletal: Reports: Back pain. Denies: Extremity Pain Skin: Denies: Rash, Wounds Neurological: Reports: Headache. Denies: Weakness, Numbness Physical Exam Vital Signs/Narrative: Vital Signs Temp Pulse Resp BP Pulse Ox 09/24/18 05:30 97.1 F L 92 18 108/56 L 96 Inital Vital Signs reviewed: Yes General: Well nourished, Well developed, No Acute Distress Head: Normocephalic, Atraumatic Eyes: Perrl, EOMI ENT: Moist mucous membranes, No rhinorrhea Neck: Supple, Nontender, - - No meningismus Cardiovascular: Regular rate, Regular rhythm, No murmurs Respiratory: No distress, CTA bilaterally, Chest nontender Abdomen: Soft, Nontender, Nondistended, Normal bowel sounds Back: Nontender, Normal Inspection, - - Straight leg test negative bilaterally. Extremities: Nontender, No edema Skin: Normal color, No rash Neurological: Alert, Oriented x3, Cranial nerves II-XII grossly intact, Normal Strength, Normal Sensation Psychological: Normal affect, Normal Mood Diagnostic/Tx/Re-eval - Medical Decision Making Patient vital signs stable, no focal neurological deficits. No meningismus. Treated with migraine cocktail with improvement of nausea and headache and her back symptoms. Patient followed by [facility] PCP. She is also seen orthopedics in the past with her sciatica, she states she did not like Dr. Wei. She did have a point with Dr. Dowd 8 days ago for which she did not go to. She will remake an appointment as an outpatient as needed. She has naproxen at home to use. All questions were answered. ED Disposition - Plan for ED Patient: Disposition: Home or Assisted Living Diagnosis: Headache, Sciatica of left side Instructions: HEADACHE, Unspecified, Understanding Sciatica Referrals: Care Physician,No Primary [Primary Care Provider] - Denis Dowd DO [STAFF PHYSICIAN] - 5-7 Days Additional Instructions: Follow-up with your doctor and/or Dr. Dowd for your symptoms. You missed your last appointment with Dr. Stock.
[2018-09-24] MEDS: 0.9% Normal Saline 1,000 ML 999 ML IV (05:52)
[2018-09-24] MEDS: DiphenhydrAMINE 50 MG/ML Syringe 25 MG IV (05:52)
[2018-09-24] MEDS: Metoclopramide 10 MG/2 ML Vial IV (05:53)
[2018-09-24] MEDS: Ketorolac 30 MG/ML Syringe IV (05:53)
[2018-09-24 06:37] VITALS: RESP 14
== END 2018-09-24 06:37 | disposition home or self-care (01) ==
PROVIDERS: Emergency Provider Emergency Medicine
DX: R51 Headache (principal); M54.32 Sciatica, left side; Z87.891 Personal history of nicotine dependence
CPT/HCPCS: 96361; 96374; 96375; 99284; J7030

== ENCOUNTER 2018-11-06 22:37 | Emergency (ER) | payer MEDICAID, SELFPAY ==
[2018-09-25 10:26] VITALS: BMI 26.9
[2018-11-06 22:39] VITALS: BP 104/76; PULSE 88; RESP 16; TEMP 36.2; O2SAT 100; BMI 24.7
--- NOTE | 2018-11-06 22:53 | ED.VIS.GEN ---
History of Present Illness Chief Complaint: Headache Narrative: Patient is a 43-year-old female who presents with a headache. She has a history of frequent emergency department visits for headache. Her current headache began about 2:00, 8 or 9 hours before presentation. She was trying to repair a leaky toilet with [employer] and thinks the fumes may have triggered her headache. She complains of a pressure-like left-sided headache. She does report nausea and vomiting. She has had this with previous migraines. No head injury. No fever. She tried to lay down and rest to see if this would help her symptoms but has not tried any medications at home before presentation. Past Medical History - Allergies and Home Meds Allergies/Adverse Reactions: Allergies hydromorphone HCl [From Dilaudid] Adverse Reaction (Verified 11/06/18 22:41) Other Primary Care Physician: Care Physician,No Primary [Primary Care Provider] - Past Medical History: - - Migraines Smoking Status: Former smoker Review of Systems All systems negative except as indicated General: Denies: Fever Cardiovascular: Denies: Chest pain Respiratory: Denies: Dyspnea Gastrointestinal: Reports: Nausea, Vomiting Neurological: Reports: Headache Physical Exam Vital Signs/Narrative: Vital Signs Temp Pulse Resp BP Pulse Ox 11/06/18 22:39 97.2 F L 88 16 104/76 100 Inital Vital Signs reviewed: Yes General: Well nourished, Well developed Head: Normocephalic Eyes: Perrl, EOMI ENT: Moist mucous membranes Neck: Supple, - - No meningismus Cardiovascular: Regular rate, Regular rhythm Respiratory: No distress, CTA bilaterally Abdomen: Soft Skin: Normal color Neurological: Alert, Normal Strength, Normal Sensation Psychological: Normal affect Diagnostic/Tx/Re-eval - Medical Decision Making Patient treated with IV fluids and Toradol. She refused Reglan. She does feel better on reevaluation. Patient discharged to follow-up as an outpatient. ED Disposition - Plan for ED Patient: Disposition: Home or Assisted Living Diagnosis: Headache Instructions: HEADACHE, Unspecified Referrals: Care Physician,No Primary [Primary Care Provider] -
[2018-11-06] MEDS: 0.9% Normal Saline 1,000 ML 999 ML IV (23:06)
[2018-11-06] MEDS: Ketorolac 30 MG/ML Syringe IV (23:07)
[2018-11-07 00:04] VITALS: PULSE 72; RESP 16; O2SAT 100
== END 2018-11-07 00:06 | disposition home or self-care (01) ==
PROVIDERS: Emergency Provider Emergency Medicine
DX: R51 Headache (principal); Z87.891 Personal history of nicotine dependence
CPT/HCPCS: 96361; 96374; 99283; J7030; A4216

== ENCOUNTER 2018-11-13 22:53 | Emergency (ER) | payer MEDICAID, SELFPAY ==
[2018-11-13 22:54] VITALS: BP 115/76; PULSE 89; RESP 18; TEMP 36.2; O2SAT 99; BMI 25.0
[2018-11-13 23:27] VITALS: RESP 16
--- NOTE | 2018-11-14 00:06 | ED.DCSUM_ITS ---
- ER Visit Summary Date of Service: 11/14/18 Chief Complaint: Back pain History of Present Illness: The patient is a 43 F presenting with back pain. Patient states this started today. She states she is packing and getting ready to move. She feels this may have flared up her sciatica. States she did not lift anything heavy or fall. She has Naprosyn that she has tried at home. She denies bowel or bladder incontinence. Denies numbness or weakness. Denies fever. She is able to ambulate. Denies other complaints. Physical Examination: Vitals are stable. Patient is afebrile. Alert no acute distress. HEENT exam is unremarkable. Neck is supple. Lungs are clear and equal bilaterally. Heart is regular rate and rhythm. Abdomen is soft nontender nondistended. Back: Left paraspinal lumbar muscle tenderness, no midline tenderness. Straight leg raise positive at 30 degrees on the left Extremities are unremarkable. Skin is warm and dry. No focal neurologic deficit. Normal strength and sensation Remainder of exam is unremarkable. Emergency Department Course and Treatment: Patient was given Toradol, Norflex IM. She is advised to continue her naproxen at home. Advised to return to ED if worsening complaints. Disposition: Discharge home Impression: Acute on chronic back pain This note was generated with [employer] dictation software. It may contain incorrect words, spelling, and punctuation that were not noted in review of the chart prior to signing ED Disposition - Plan for ED Patient: Instructions: BACK PAIN w/ SCIATICA Referrals: Care Physician,No Primary [Primary Care Provider] -
[2018-11-14] MEDS: Ketorolac 60 MG/2 ML Vial IM (00:11)
[2018-11-14] MEDS: Orphenadrine 60 MG/2 ML Ampul IM (00:11)
--- NOTE | 2018-11-14 00:15 | ED.DEP ---
ED Disposition - Plan for ED Patient: Instructions: BACK PAIN w/ SCIATICA Referrals: Care Physician,No Primary [Primary Care Provider] -
[2018-11-14 00:38] VITALS: RESP 16
== END 2018-11-14 00:38 | disposition home or self-care (01) ==
LOC: ED 23:12
PROVIDERS: Emergency Provider Emergency Medicine
DX: M54.5 Low back pain (principal); G89.29 Other chronic pain; Z87.891 Personal history of nicotine dependence
CPT/HCPCS: 96372; 99282

== ENCOUNTER 2018-11-14 09:52 | Emergency (ER) | payer MEDICAID, SELFPAY ==
[2018-11-13 22:54] VITALS: BMI 25.0
[2018-11-14 09:53] VITALS: BP 129/81; PULSE 104; RESP 18; TEMP 36.6; O2SAT 99; BMI 23.0
--- NOTE | 2018-11-14 10:08 | ED.VIS.GEN ---
History of Present Illness Chief Complaint: Lower Extremity Injury Informant: Patient Onset: Yesterday Narrative: Worsening pain left lower back rating down the back to the leg since yesterday. States starting to move out of her placement symptoms started. There is no falls or direct injuries. No loss of bowel or bladder control. Seen yesterday in the ED was given injections however no prescriptions. States naproxen does not work therefore threw it away. There is no muscle relaxer prescription. No history of gastric ulcers or kidney injury. From records noted she is to see orthopedics which I discussed, she states she saw states she was not going to do physical therapy. Currently does not have a PCP. History of sciatica same side in the past. Prior similar symptoms: Yes Past Medical History - Allergies and Home Meds Allergies/Adverse Reactions: Allergies hydromorphone HCl [From Dilaudid] Adverse Reaction (Verified 11/13/18 22:54) Other Primary Care Physician: Care Physician,No Primary [Primary Care Provider] - Smoking Status: Former smoker Review of Systems General: Denies: Chills, Fever, Sweats Eyes: Denies: Visual changes - bilaterally, Diplopia ENT: Denies: Rhinorrhea, Sore throat Cardiovascular: Denies: Chest pain, Palpitations Respiratory: Denies: Dyspnea, Cough, Dyspnea on exertion Gastrointestinal: Denies: Abdominal pain, Nausea, Vomiting, Diarrhea, Melena, Hematochezia Genitourinary: Denies: Dysuria, Hematuria, Frequency Musculoskeletal: Reports: Back pain. Denies: Extremity Pain Skin: Denies: Rash, Wounds Neurological: Denies: Headache, Weakness, Numbness Physical Exam Vital Signs/Narrative: Vital Signs Temp Pulse Resp BP Pulse Ox 11/14/18 09:53 97.8 F 104 H 18 129/81 H 99 Inital Vital Signs reviewed: Yes General: Unkempt Head: Normocephalic, Atraumatic Eyes: Perrl, EOMI ENT: Moist mucous membranes Neck: Supple, Nontender Cardiovascular: Regular rate, Regular rhythm, Tachycardia Respiratory: No distress, CTA bilaterally Abdomen: Soft, Nontender, Nondistended, Normal bowel sounds Back: Normal Inspection, - - No midline tenderness tender palpation left paraspinal. 1+ patellar reflex bilaterally. Straight leg test right negative, patient would not allow me to perform straight leg test on the left. This is in the sitting position. Pulses were intact distally. Extremities: Nontender, No edema Skin: Normal color, No rash Neurological: Alert, Oriented x3, Cranial nerves II-XII grossly intact Psychological: Tearful Diagnostic/Tx/Re-eval Patient with no direct injuries or falls. Shoplifting when symptoms occurred. Present with sciatica symptoms, no cauda equina symptoms. Discussed with patient will treat symptomatically with Toradol and Norflex which helped her yesterday. She will be given a prescription for Toradol and muscle relaxer. Discussed with patient is to follow-up with her physicians which she is given PCP along with Dr. Dowd's office for likely plan physical therapy would be the recommendation. However states she would not do physical therapy. Discussed this is recommendations, however cannot force her if she does not desire. Discussed with patient scepter choice to follow-up. ED Disposition - Plan for ED Patient: Disposition: Home or Assisted Living Diagnosis: Sciatica of left side Instructions: BACK PAIN w/ SCIATICA Prescriptions: Orphenadrine [Norflex ER] 100 mg PO BID PRN #12 tablet PRN Reason: back pain Ketorolac [Toradol] 10 mg PO TID PRN PRN #20 tablet PRN Reason: Pain Referrals: Care Physician,No Primary [Primary Care Provider] - Contreras Allan DO [NON CLINICAL AFFILIATE] - 3-5 Days Additional Instructions: Follow with new PCP or Dr. Stock office for reevaluation. Take medications as prescribed.
--- NOTE | 2018-11-14 10:21 | ED.RN ---
THIS RN EXPLAINED TO THE PT THAT I HAD 2 IM INJECTIONS FOR HER. THE PT WAS OKAY WITH THE INJECTIONS TO BE ADMINISTERED IN BOTH HIPS. I ASKED THE PT TO PULL HER PANTS SLIGHTLY DOWN SO THAT HER HIP WOULD BE EXPOSED. THE PT EXPLAINED TO COULD NOT DO THAT. I OFFERED TO HELP HER AND PLACE HER IN A POSITION IN WHICH EXPOSURE OF THE HIP WOULD BE POSSIBLE. PT GOT UP OUT OF HER CHAIR, TURNED BACK AT ME AND STATED WHAT DON'T YOU UNDERSTAND ABOUT I CAN'T I TOLD THE PATIENT THE MEDICATIONS NEED TO BE IN A MUSCLE. I NOTIFIED THE DR. HICKS AND HE GAVE ME HER DISCHARGE INSTRUCTIONS AND PRESCRIPTIONS. I ATTEMPTED TO GIVE THE PAPER WORK TO THE PT BUT SHE REFUSED. I AGAIN NOTIFIED DR. HICKS.
--- NOTE | 2018-11-14 10:22 | ED.RN ---
PRESCRIPTIONS PLACED IN SHREDDER BOX.
== END 2018-11-14 10:22 | disposition home or self-care (01) ==
PROVIDERS: Emergency Provider Emergency Medicine
DX: M54.42 Lumbago with sciatica, left side (principal); Z87.891 Personal history of nicotine dependence
CPT/HCPCS: 99282

== ENCOUNTER 2018-11-15 12:30 | Emergency (ER) | payer MEDICAID, SELFPAY ==
[2018-11-14 11:55] VITALS: BMI 23.0
[2018-11-15 12:31] VITALS: BP 131/65; PULSE 91; RESP 16; TEMP 36.6; O2SAT 98; BMI 25.1
--- NOTE | 2018-11-15 13:20 | ED.VIS.GEN ---
History of Present Illness Chief Complaint: Lower Extremity Injury Detail of Chief Complaint: Back pain, sciatica Informant: Patient Onset: Days Current Severity: Moderate Maximum Severity: Moderate Narrative: Patient is a history of sciatica. She was in the process of moving 3 days ago and now has increased left lower back pain and down the left leg. She was seen here in the ER 2 nights ago and given Toradol and Norflex which improved her pain for a time. She was seen again yesterday, but left prior to her prescriptions being given to her because she states the doctors and nurses were being mean to her. She did go to urgent care last evening and got a Toradol injection. She has not had anything for pain today. She denies fever or chills. She denies any history of IV drug abuse. She denies any prior history of back surgery. Past Medical History - Allergies and Home Meds Allergies/Adverse Reactions: Allergies hydromorphone HCl [From Dilaudid] Adverse Reaction (Verified 11/15/18 12:31) Other Primary Care Physician: Care Physician,No Primary [Primary Care Provider] - Prior records reviewed: Yes Past Medical History: - - Reviewed Lives: Alone Smoking Status: Former smoker Review of Systems General: Denies: Chills, Fever Eyes: Denies: Visual changes - bilaterally ENT: Denies: Bilateral ear pain Cardiovascular: Denies: Chest pain Respiratory: Denies: Dyspnea Gastrointestinal: Denies: Abdominal pain, Nausea, Vomiting, Diarrhea Musculoskeletal: Reports: Back pain, Extremity Pain Skin: Denies: Rash, Wounds Neurological: Denies: Headache Hematologic: Denies: Easy bruising, Easy bleeding Physical Exam Vital Signs/Narrative: Vital Signs Temp Pulse Resp BP Pulse Ox 11/15/18 12:31 97.8 F 91 16 131/65 H 98 Inital Vital Signs reviewed: Yes General: Well nourished, Well developed Head: Normocephalic ENT: Moist mucous membranes Neck: Supple Cardiovascular: Regular rate, Regular rhythm Respiratory: No distress, CTA bilaterally Abdomen: Soft, Nontender Back: - - No midline thoracic or lumbar tenderness. Reproducible tenderness is noted in the left low lumbar paraspinals and of the left sciatic notch. Extremities: Nontender - No reproducible tenderness. Strong distal pulses. Skin: Normal color Neurological: Alert, Oriented x3, Normal Sensation Psychological: - - Anxious Diagnostic/Tx/Re-eval - Medical Decision Making Patient was initially given Toradol and Norflex. After approximately 1 hour patient complains of continued pain. I had her stand at bedside and she was able to do so. She is able to stand on her heels and toes. She was given a dose of p.o. prednisone and repeat evaluation feels improved. She be given prescriptions for all the above. ED Disposition - Plan for ED Patient: Disposition: Home or Assisted Living Instructions: BACK PAIN w/ SCIATICA Prescriptions: Orphenadrine [Norflex ER] 100 mg PO BID PRN #14 tablet PRN Reason: Spasms Prednisone 10 mg PO UD #33 tablet Ketorolac [Toradol] 10 mg PO Q6H PRN #20 tablet PRN Reason: Pain Referrals: Charli Díaz MD [NON-STAFF] - As Needed
[2018-11-15] MEDS: Ketorolac 60 MG/2 ML Vial IM (13:21)
[2018-11-15] MEDS: Orphenadrine 60 MG/2 ML Ampul IM (13:22)
[2018-11-15] MEDS: predniSONE 20 MG Tablet 60 MG PO (15:15)
[2018-11-15 16:40] VITALS: PULSE 94; RESP 17; O2SAT 97
== END 2018-11-15 16:41 | disposition home or self-care (01) ==
PROVIDERS: Emergency Provider Emergency Medicine
DX: M54.42 Lumbago with sciatica, left side (principal); Z87.891 Personal history of nicotine dependence
CPT/HCPCS: 96372; 99283

== ENCOUNTER 2018-11-23 21:50 | Emergency (ER) | payer MEDICAID, SELFPAY ==
[2018-11-23 21:50] VITALS: BP 121/86; PULSE 86; RESP 18; TEMP 36.4; O2SAT 98; BMI 24.3
--- NOTE | 2018-11-23 22:04 | ED.DCSUM_ITS ---
History of Present Illness Chief Complaint: Headache Detail of Chief Complaint: Having unilateral headache Informant: Patient Onset: Today Context: Sudden Onset Timing: Continuous Quality: Throbbing Location: Right side Current Severity: Mild Maximum Severity: Moderate Worsened by: Right Relieved by: Nothing Associated Symptoms: Nausea and vomiting Narrative: Patient is a 43-year-old woman who presents with throbbing unilateral headache with photophobia and nausea vomiting. She has history of migraine headaches. That the only medical problem. She states is been under stress because of the location. She reports by ocular blurred vision, which is felt to be secondary to 1 of her medications. She denies runny nose, congestion or postnasal drainage. She denies ear pain or ringing or ears. She denies neck pain or neck stiffness. She denies cardiac arrest or symptoms. She denies urologic symptoms. Eyes paresthesia, anesthesia buttocks. Denies problems with her balance. Denies trouble with speech or swallowing. Prior similar symptoms: No Recent Illness/Hospitalization: No - Past Medical History (1) Sciatica Status: Acute (2) Migraines Status: Chronic Past Medical History - Allergies and Home Meds Allergies/Adverse Reactions: Allergies hydromorphone HCl [From Dilaudid] Adverse Reaction (Verified 11/23/18 21:52) Other Primary Care Physician: Care Physician,No Primary [Primary Care Provider] - Prior records reviewed: No Surgical History: no surgical history Lives: Spouse/ Significant Other Smoking Status: Former smoker Alcohol: None Drugs: None Review of Systems General: Denies: Chills, Fever, Sweats Eyes: Denies: Visual changes - bilaterally, Diplopia ENT: Denies: Rhinorrhea, Sore throat Cardiovascular: Denies: Chest pain, Palpitations Respiratory: Denies: Dyspnea, Cough, Dyspnea on exertion Gastrointestinal: Reports: Nausea, Vomiting. Denies: Abdominal pain, Diarrhea, Constipation, Melena, Hematochezia, -, - Genitourinary: Denies: Dysuria, Hematuria, Frequency Musculoskeletal: Denies: Myalgias, Arthralgias, Neck pain, Back pain, Swelling, Extremity Pain Skin: Denies: Rash, Wounds Neurological: Reports: Headache. Denies: Weakness, Parasthesia, Numbness, -, - Psych: Reports: Anxiety. Denies: Depression Allergy: Denies: Uticaria, Swelling of the mouth, Swelling of the tongue Physical Exam Vital Signs/Narrative: Vital Signs Temp Pulse Resp BP Pulse Ox 11/23/18 21:50 97.6 F L 86 18 121/86 H 98 Inital Vital Signs reviewed: Yes General: Well nourished, Well developed, No Acute Distress Head: Normocephalic, Atraumatic Eyes: Perrl, EOMI ENT: Moist mucous membranes, No rhinorrhea, TM's clear Neck: Supple, Nontender, No lymphadenopathy, No JVD Cardiovascular: Regular rate, Regular rhythm, No murmurs, Normal S1, Normal S2 Respiratory: No distress, CTA bilaterally, Chest nontender Abdomen: Soft, Nontender, Nondistended, Normal bowel sounds Back: Nontender, Normal Inspection. Negative for: CVA tenderness Extremities: Nontender, No edema Skin: Normal color, No rash, No Trauma. Negative for: Cyanosis, Diaphoresis, Jaundice Neurological: Alert, Oriented x3, Cranial nerves II-XII grossly intact, Normal Strength, Normal Sensation Psychological: Normal affect, Normal Mood Diagnostic/Tx/Re-eval - Medical Decision Making With history of migraine headaches and throbbing unilateral headache will treat with IV Benadryl, Reglan and Toradol. Will reassess in 30 to 60 minutes. Patient was reassessed at 2250. She reports improvement. She does not feel comfortable going home at this time. Will reassess in 15 minutes. Patient was reassessed at 2305. She feels better and comfortable to go home. ED Disposition - Plan for ED Patient: Disposition: Home or Assisted Living Diagnosis: Migraine headache without aura Instructions: ED, Migraine (Classical) Referrals: Care Physician,No Primary [Primary Care Provider] - Additional Instructions: Follow-up with your primary care provider. The name of your primary care provider is located on your insurance card issued to you by [facility].
[2018-11-23] MEDS: DiphenhydrAMINE 50 MG/ML Syringe 25 MG IV (22:19)
[2018-11-23] MEDS: Ketorolac 30 MG/ML Syringe 15 MG IV (22:19)
--- NOTE | 2018-11-23 23:13 | ED.RN ---
REVIEWED D/C INSTRUCTIONS, FOLLOW UP CARE, AND S/S THAT WOULD WARRANT A RETURN TO THE ED WITH PT. PT VERBALIZED AN UNDERSTANDING AND DENIES FURTHER QUESTIONS FOR THIS RN. PT SKIN P/W/D, RESP EVEN AND UNLABORED, PT A&O X 3, NO DISTRESS NOTED. PT AMBULATED OUT OF ED, GAIT STEADY.
== END 2018-11-23 23:14 | disposition home or self-care (01) ==
PROVIDERS: Emergency Provider Emergency Medicine
DX: G43.009 Migraine without aura, not intractable, without status migrainosus (principal); Z87.891 Personal history of nicotine dependence
CPT/HCPCS: 96374; 96375; 99282; A4216

== ENCOUNTER 2018-11-25 12:17 | Emergency (ER) | payer MEDICAID, SELFPAY ==
[2018-11-25 12:18] VITALS: BP 127/97; PULSE 97; RESP 17; TEMP 36.6; O2SAT 97; BMI 23.6
--- NOTE | 2018-11-25 12:51 | ED.RN ---
PATIENT LWBS AT 1243.
== END 2018-11-25 12:42 ==
DX: R69 Illness, unspecified (principal); Z53.21 Procedure and treatment not carried out due to patient leaving prior to being seen by health care provider

== ENCOUNTER 2018-11-27 17:49 | Emergency (ER) | payer MEDICAID, SELFPAY ==
[2018-11-25 13:09] VITALS: BMI 23.6
[2018-11-27 17:51] VITALS: BP 133/83; PULSE 96; RESP 30; TEMP 36.4; O2SAT 98; BMI 23.5
--- NOTE | 2018-11-27 18:44 | ED.VISSUMM ---
- ER Visit Summary Date of Service: 11/27/18 Chief Complaint: Left lower extremity pain History of Present Illness: The patient is a 43 F with left lower extremity pain. She was diagnosed with sciatica. She has had these symptoms for 10 months. The pain is in her left upper buttock and radiates down her left lower extremity. She reports paresthesias to her left lower extremity. Denies any loss of bowel or bladder. Denies any trauma. Denies abdominal pain or GI symptoms. Denies any urinary symptoms. Denies any weakness or numbness. Denies any fevers or systemic symptoms. Denies any history of back surgery. She was taking anti-inflammatories and muscle relaxers but she ran out. She was trying lidocaine patches but they caused her heart to race so she stopped them. Physical Examination: Afebrile and vital signs unremarkable. Patient appears uncomfortable but not toxic or in distress. Abdomen soft and nontender. Back is nontender. Patient has pain to her left upper buttock that radiates down her left leg but she has good range of motion. Negative straight leg raise. Paresthesias left lower extremity. Test Results: None indicated Emergency Department Course and Treatment: Patient presents with myofascial back pain. Likely sciatica. She was treated with muscle relaxers and anti-inflammatories. Will reassess. I was informed by nursing that the patient left. It sounded like she had pain when she was getting her medication. The patient had already left the ED by the time I was notified. Treatment Plan: As above Disposition: Eloped Impression: 1. Back pain This note was generated with [employer] dictation software. It may contain incorrect words, spelling, and punctuation that were not noted in review of the chart prior to signing ED Disposition - Plan for ED Patient: Referrals: Care Physician,No Primary [Primary Care Provider] -
--- NOTE | 2018-11-27 19:04 | ED.RN ---
PT REFUSED TO PULL PANTS DOWN FOR INJECTIONS IN THIGHS, STATED SHE WAS UNABLE TO DO SO. THIS RN ADVISED PT THAT SHE WOULD NEED TO PULL PANTS DOWN IN ORDER TO RECEIVED INJECTIONS. MD AND ADMISSION NURSE NOTIFIED. PT BECAME ANGRY, GOT UP OUT OF BED, DRESSED HERSELF AND AMBULATED OUT OF DEPT.
== END 2018-11-27 19:13 | disposition home or self-care (01) ==
LOC: ED 18:58
PROVIDERS: Emergency Provider Emergency Medicine
DX: M54.9 Dorsalgia, unspecified (principal); Z53.21 Procedure and treatment not carried out due to patient leaving prior to being seen by health care provider
CPT/HCPCS: 99282

== ENCOUNTER 2018-12-14 21:26 | Emergency (ER) | payer MEDICAID, SELFPAY ==
[2018-12-14 21:27] VITALS: BP 120/80; PULSE 90; RESP 18; TEMP 36.7; O2SAT 97; BMI 24.3
[2018-12-14] MEDS: Ketorolac 30 MG/ML Syringe IV (23:02)
[2018-12-14] MEDS: 0.9% Normal Saline 1,000 ML 999 ML IV (23:02)
--- NOTE | 2018-12-14 23:23 | ED.DCSUM_ITS ---
- ER Visit Summary Date of Service: 12/14/18 Chief Complaint: Headache History of Present Illness: The patient is a 43 F who presents with a headache that began today. Patient states it was there when she woke up today. Patient states the pain is over the left side of her head. Patient states the pain is similar to prior migraine headaches with the exception that her migraines are typically on the right side. Patient admits to some nausea and photophobia. Patient denies any vomiting. Patient denies any scotoma or other visual changes. Patient denies any neck pain. Patient denies any fevers or chills. Patient states that Toradol usually works for her headache. Physical Examination: Vital signs are stable. Patient is afebrile. Patient is in no acute distress. Cranial nerves II through XII are intact. Strength is 5/5 bilateral knee upper and lower extremities. There are no sensory deficits noted. Oral mucosa is pink and moist. Neck is supple. Trachea is midline. Heart was regular rate and rhythm. Lungs are clear and equal bilaterally. Abdomen is soft and nontender. Emergency Department Course and Treatment: Patient was given IV fluids. Patient was given an injection of Toradol. Patient felt better on reevaluation. She was instructed to rest in a dark quiet room. Patient was instructed to follow- up with her primary care physician in 5 to 7 days. Patient understood and was agreeable with the plan. All questions were answered. Disposition: Discharge home Impression: Migraine headache This note was generated with [employer] dictation software. It may contain incorrect words, spelling, and punctuation that were not noted in review of the chart prior to signing ED Disposition - Plan for ED Patient: Disposition: Home or Assisted Living Diagnosis: Migraines Instructions: ED, Migraine (Classical) Referrals: Care Physician,No Primary [Primary Care Provider] - Tito Terry MD [NON-STAFF] - 5-7 Days
== END 2018-12-14 23:51 | disposition home or self-care (01) ==
PROVIDERS: Emergency Provider Emergency Medicine
DX: G43.909 Migraine, unspecified, not intractable, without status migrainosus (principal); Z87.891 Personal history of nicotine dependence
CPT/HCPCS: 96361; 96374; 99283; J7030; A4216

== ENCOUNTER 2018-12-16 14:10 | Emergency (ER) | payer MEDICAID, SELFPAY ==
[2018-12-16 14:11] VITALS: BP 143/91; PULSE 100; RESP 15; TEMP 37; O2SAT 99; BMI 25.9
--- NOTE | 2018-12-16 14:27 | ED.DCSUM_ITS ---
- ER Visit Summary Date of Service: 12/16/18 Chief Complaint: Headache History of Present Illness: The patient is a 43 F with no primary care physician. She reports that she has a headache that began 2 days ago and is gradually gotten worse. Some aching pain in the right side of her head. Is 9 out of 10 at worst and is a 10 currently. Is worsened by movement or light. Is relieved by ibuprofen and Toradol. She is been nausea, but has not vomited. She denies any fever or recent injury to her head. She is had multiple headaches in the past that are similar Physical Examination: Vitals: Stable. Afebrile. General: Well-nourished and well-developed. Head: Normocephalic atraumatic. Neck: Supple, no lymphadenopathy. No JVD. Nontender. Cardiovascular: Regular rate and rhythm. No murmurs. Respiratory: No respiratory distress. Clear to auscultation bilaterally. Abdominal: Soft, nontender, nondistended, normal bowel sounds. No guarding, rebound, or peritoneal signs. Back: Nontender. Extremities: Nontender, no edema. Skin: Normal color, no rash. Neurologic: Alert and oriented ?3. Cranial nerves II through XII are intact. Normal strength and sensation. Psych: Normal affect. Emergency Department Course and Treatment: Patient had an IV placed. She is given a dose of Toradol IV. She is resting comfortably. She refused pain medications. Treatment Plan: Patient will be discharged instructions to follow-up the [facility] in 1 to 2 days if not improving. She is asked for a prescription for Toradol. She is given a prescription with 10 Toradol. Return to the emergency department for any worsening symptoms. Disposition: To home in improved and stable condition. Impression: 1. Recurrent headache. This note was generated with [place] dictation software. It may contain incorrect words, spelling, and punctuation that were not noted in review of the chart prior to signing ED Disposition - Plan for ED Patient: Instructions: ED, Migraine (Classical) Prescriptions: Ketorolac [Toradol] 10 mg PO Q6H #10 tablet Referrals: [facility] [NON-STAFF] - 1-2 Days if not improving
[2018-12-16] MEDS: Ketorolac 30 MG/ML Syringe IV (15:02)
[2018-12-16] MEDS: 0.9% Normal Saline 1,000 ML 999 ML IV (15:02)
[2018-12-16 15:49] VITALS: RESP 18
== END 2018-12-16 15:49 | disposition home or self-care (01) ==
LOC: ED 14:29
PROVIDERS: Emergency Provider Emergency Medicine
DX: R51 Headache (principal); Z87.891 Personal history of nicotine dependence
CPT/HCPCS: 96361; 96374; 99284; J7030

== ENCOUNTER 2018-12-17 05:06 | Emergency (ER) | payer MEDICAID, SELFPAY ==
[2018-12-16 14:11] VITALS: BMI 25.9
[2018-12-17 05:07] VITALS: BP 115/56; PULSE 94; RESP 16; TEMP 37.1; O2SAT 100; BMI 24.5
--- NOTE | 2018-12-17 05:29 | ED.DCSUM_ITS ---
History of Present Illness <Eddy Hill - Last Filed: 12/17/18 07:40> Informant: Patient Onset: Days Context: Gradual Onset Timing: Continuous Current Severity: Severe Narrative: She is a 43-year-old female with extensive history of migraines presenting with a headache. Patient states she has had a headache off and on since , 3 days ago. She states first it was on the left side of her head and now is been on the right. She is been seen in the ER twice for the same headaches. Patient states Toradol and fluids normally make it go away. She states she drove herself here. She has associated photo sensitivity. She denies any weakness or numbness. She denies any fever, chills or rash. Patient states she is been very stressed as she is trying to move to [place] and also needs a new p rescription for her glasses. Patient took 10 mg p.o. Toradol at 9 PM but continued to have a headache throughout the night so she came back to the emergency room. Patient denies any other complaints at this time. <Tracy Velásquez - Last Filed: 12/17/18 08:29> Chief Complaint: Headache Past Medical History <Eddy Hill - Last Filed: 12/17/18 07:40> Surgical History: no surgical history Smoking Status: Never smoker <Tracy Velásquez - Last Filed: 12/17/18 08:29> - Allergies and Home Meds Allergies/Adverse Reactions: Allergies hydromorphone HCl [From Dilaudid] Adverse Reaction (Verified 12/17/18 05:12) Other Primary Care Physician: [facility] Kumar [NON-STAFF] - 3-5 Days Care Physician,No Primary [Primary Care Provider] - Review of Systems All systems negative except as indicated Gastrointestinal: Reports: Nausea. Denies: Vomiting Neurological: Reports: Headache <Tracy Velásquez - Last Filed: 12/17/18 08:29> Physical Exam Vital Signs/Narrative: Vital Signs Temp Pulse Resp BP Pulse Ox 12/17/18 05:07 98.7 F 94 16 115/56 L 100 <Eddy Hill - Last Filed: 12/17/18 07:40> Vital Signs/Narrative: Vital Signs Temp Pulse Resp BP Pulse Ox 12/17/18 05:07 98.7 F 94 16 115/56 L 100 Inital Vital Signs reviewed: Yes General: Well nourished, Well developed, No Acute Distress Head: Normocephalic, Atraumatic Eyes: Perrl, EOMI ENT: Moist mucous membranes, No rhinorrhea Neck: Supple, Nontender, - - No nuchal rigidity, no meningeal signs Cardiovascular: Regular rate, Regular rhythm, No murmurs Respiratory: No distress, CTA bilaterally, Chest nontender Abdomen: Soft, Nontender, Nondistended, Normal bowel sounds Back: Nontender, Normal Inspection Extremities: Nontender, No edema Skin: Normal color, No rash Neurological: Alert, Oriented x3, Cranial nerves II-XII grossly intact, Normal Strength, Normal Sensation Psychological: Normal affect, Normal Mood <Tracy Velásquez - Last Filed: 12/17/18 08:29> Diagnostic/Tx/Re-eval - Medical Decision Making Patient has a normal neurologic exam. She is evaluated for her chronic headache. Patient is seen frequently for her headaches. She drove herself here. She is given IV fluids and Toradol. On reevaluation she states she feels better would like to go home. She is encouraged to follow-up with a primary care doctor. Patient is counseled on signs and symptoms requiring return to the emergency room. Patient verbalizes agreement and understand this plan. Patient discharged home in stable and improved condition. <Tracy Velásquez - Last Filed: 12/17/18 08:29> ED Disposition <Eddy Hill - Last Filed: 12/17/18 07:40> <Tracy Velásquez - Last Filed: 12/17/18 08:29> - Plan for ED Patient: Disposition: Home or Assisted Living Diagnosis: Headache Instructions: HEADACHE, Unspecified Referrals: Care Physician,No Primary [Primary Care Provider] - [facility] [NON-STAFF] - 3-5 Days
[2018-12-17] MEDS: Ketorolac 30 MG/ML Syringe IV (05:35)
[2018-12-17] MEDS: 0.9% Normal Saline 1,000 ML 999 ML IV (05:35)
[2018-12-17 07:54] VITALS: BP 113/76; PULSE 81; RESP 14; O2SAT 97
--- NOTE | 2019-01-12 18:20 | CM.ED ---
Social Work ED Care Plan approved. Davida YAN, FRANCO
--- NOTE | 2019-03-28 17:30 | CM.ED ---
Social Work Telephone call to patient to update on ED Care Plan, no answer and voicemail has not been set up yet. Mailed ED Care Plan along with resources (211, Counseling Agencies, List of PCP's, When to Go Where to Go handout). Tracking#[id number] Davida YAN, FRANCO
== END 2018-12-17 07:57 | disposition home or self-care (01) ==
PROVIDERS: Emergency Provider Emergency Medicine
DX: R51 Headache (principal)
CPT/HCPCS: 96361; 96374; 99284; J7030; A4216